=== PATIENT | male | born 1965 | race Caucasian/White ===

== ENCOUNTER → 2017-02-20 | Outpatient (REF) | payer OTHER ==
[~2017-02-20] MED LIST: BUSP10TA PO; DULC10SU2 PO; HYDR-3713 PO; PRIL40CA PO; SIME180C PO; XANA0.25 PO
[2017-02-20 14:09] LABS: ALBUMIN 3.6 GM/DL (3.2-5.2); ALKALINE PHOSPHATASE 110 U/L (45-117); ALT/SGPT 37 U/L (12-78); ANION GAP 8 MEQ/L (8-16); AST/SGOT 15 U/L (15-37); BILIRUBIN,TOTAL 0.4 MG/DL (0.2-1.0); BLOOD UREA NITROGEN 20 MG/DL (7-18); CALCIUM LEVEL 8.6 MG/DL (8.5-10.1); CARBON DIOXIDE LEVEL 28 MEQ/L (21-32); CHLORIDE LEVEL 107 MEQ/L (98-107); CHOLESTEROL LEVEL 135 MG/DL (<200); CREATININE FOR GFR 0.77 MG/DL (0.70-1.30); FREE T4 1.14 NG/DL (0.76-1.46); GLOMERULAR FILTRATION RATE > 60.0 (>56); GLUCOSE, FASTING 96 MG/DL (70-105); POTASSIUM SERUM 4.3 MEQ/L (3.5-5.1); SODIUM LEVEL 143 MEQ/L (136-145); TOTAL PROTEIN 6.6 GM/DL (6.4-8.2); TRIGLYCERIDES LEVEL 70 MG/DL (<150)
[2017-02-20 14:18] LABS: MEAN CORPUSCULAR HEMOGLOBIN 30.1 pg (27.0-33.0); MEAN CORPUSCULAR HGB CONC 33.2 g/dl (32.0-36.5); MEAN CORPUSCULAR VOLUME 90.7 fl (80.0-96.0); RED CELL DISTRIBUTION WIDTH 12.7 % (11.5-14.5); WHITE BLOOD COUNT 6.8 K/mm3 (4.0-10.0)
== END ==
LOC: M SFHCADAM 07:50
PROVIDERS: ATTEND Physician Assistant
DX: G47.33 Obstructive sleep apnea (adult) (pediatric) (principal); Z13.1 Encounter for screening for diabetes mellitus; Z13.220 Encounter for screening for lipoid disorders; E66.01 Morbid (severe) obesity due to excess calories

== ENCOUNTER → 2017-02-20 | Outpatient (REF) | payer OTHER ==
[2017-03-04 06:41] LABS: SUMMARY SEE SEPARATE REPORT
== END ==
LOC: M LAB REF 12:43
PROVIDERS: ATTEND Physical Medicine & Rehabilitation
DX: M16.12 Unilateral primary osteoarthritis, left hip (principal)

== ENCOUNTER → 2017-07-11 | Outpatient (REF) | payer OTHER ==
[2017-07-11 19:47] LABS: C REACTIVE PROTEIN QUANTITATIV 0.84 MG/DL (0.00-0.30)
[2017-07-11 20:34] LABS: ERYTHROCYTE SEDIMENTATION RATE 6 mm/hr (0-20)
== END ==
LOC: M LABDRWAD 19:22
DX: M51.37 Other intervertebral disc degeneration, lumbosacral region (principal)

== ENCOUNTER → 2017-07-11 | Outpatient (REF) | payer OTHER ==
[2017-07-11 19:55] LABS: FERRITIN 182 NG/ML (26-388); IRON (FE) 81 UG/DL (65-175); PERCENT SATURATION 23.4 % (19.7-50.0); TOTAL IRON BINDING CAPACITY 346 UG/DL (250-450)
[2017-07-14 09:41] LABS: FOLATE 10.5 NG/ML; VITAMIN B12 LEVEL 324 PG/ML
== END ==
LOC: M SFHCADAM 12:13
DX: D64.9 Anemia, unspecified (principal)

== ENCOUNTER → 2017-07-29 | Outpatient (CLI) | payer OTHER | LOC: M RAD 06:18 | DX: S46.211A Strain of muscle, fascia and tendon of other parts of biceps, right arm, initial encounter (principal); Z53.9 Procedure and treatment not carried out, unspecified reason; X58.XXXA Exposure to other specified factors, initial encounter; Y92.89 Other specified places as the place of occurrence of the external cause; Y93.89 Activity, other specified; Y99.8 Other external cause status ==

== ENCOUNTER 2017-08-07 13:22 | Day surgery (SDC) | payer OTHER ==
[2017-08-07] MEDS: LR 1,000 ML IV (14:32)
[2017-08-07] MEDS ORDERED: ROCURONIUM BROMIDE 50 MG/5 ML VIAL As Ordered (15:01)
[2017-08-07] MEDS ORDERED: LIDOCAINE 2% INJ 100 MG/5 ML SDV (FOR ANES.) As Ordered (15:01)
[2017-08-07] MEDS ORDERED: PROPOFOL 200 MG/20 ML VIAL As Ordered (15:01)
[2017-08-07] MEDS ORDERED: MIDAZOLAM INJ 2 MG/2 ML VIAL (J2250) As Ordered (15:02)
[2017-08-07] MEDS ORDERED: fentaNYL 250 MCG/5 ML INJECTION (J3010) As Ordered ×2 (15:02→16:54)
[2017-08-07] MEDS ORDERED: ONDANSETRON 4MG/2ML VIAL (J2405) As Ordered (16:17)
[2017-08-07] MEDS ORDERED: METOCLOPRAMIDE INJ 10MG/2ML VIAL (J2765) As Ordered (16:17)
[2017-08-07] MEDS ORDERED: KETOROLAC 60 MG/2 ML VIAL (J1885) As Ordered (16:18)
[2017-08-07] MEDS ORDERED: dexameTHASONE 4 MG/ML 1ML VIAL (J1100) As Ordered (16:18)
[2017-08-07] MEDS ORDERED: GLYCOPYRROLATE INJ 0.2 MG/ML 2 ML VIAL As Ordered (16:19)
[2017-08-07] MEDS ORDERED: NEOSTIGMINE 10 MG/10 ML VIAL (J2710) As Ordered (16:19)
[2017-08-07] MEDS: NORCO, ANEXSIA 5/325MG TABLET (HYDROcodone/ACETAMINOPHEN) PO ×2 (18:56→20:05)
[2017-08-07] MEDS ORDERED: LR 1,000 ML IV ×2 (19:00→19:15)
[2017-08-07] MEDS ORDERED: fentaNYL 100 MCG/2 ML INJECTION (J3010) IV (19:00)
[2017-08-07] MEDS: ONDANSETRON 4MG/2ML VIAL (J2405) IV (20:17)
== END 2017-08-07 21:05 | disposition home or self-care (01) ==
LOC: M SDC 13:22
DX: S46.211A Strain of muscle, fascia and tendon of other parts of biceps, right arm, initial encounter (principal); S46.212A Strain of muscle, fascia and tendon of other parts of biceps, left arm, initial encounter; X50.0XXA Overexertion from strenuous movement or load, initial encounter; Y93.89 Activity, other specified; Y92.89 Other specified places as the place of occurrence of the external cause; Y99.8 Other external cause status; F41.9 Anxiety disorder, unspecified; K21.9 Gastro-esophageal reflux disease without esophagitis; M51.36 Other intervertebral disc degeneration, lumbar region; G47.33 Obstructive sleep apnea (adult) (pediatric); I10 Essential (primary) hypertension; D64.9 Anemia, unspecified; M12.9 Arthropathy, unspecified; R06.83 Snoring; E66.01 Morbid (severe) obesity due to excess calories; Z68.43 Body mass index [BMI] 50.0-59.9, adult; Z79.899 Other long term (current) drug therapy; Z87.891 Personal history of nicotine dependence
CPT/HCPCS: 24341

== ENCOUNTER → 2017-10-08 | Outpatient (REF) | payer OTHER ==
[2017-10-08 19:04] LABS: BF MONONUCLEAR CELL % 89.5 % (0-0); BF POLYMORPHONUCLEAR CELL % 10.5 % (0-0); RBC BODY FLUID 3 10^3/uL (<2); WBC BODY FLUID 355 /uL (0-10)
[2017-10-08 19:07] LABS: APPEARANCE, BODY FLUID CLEAR (CLEAR); BF DIFF IF INDICATED? YES (NO); SOURCE, BODY FLUID LFT KNEE; SYNOVIAL FLUID COLOR PALE YELLOW (YELLOW)
== END ==
LOC: M LAB REF 17:29
DX: S46.212D Strain of muscle, fascia and tendon of other parts of biceps, left arm, subsequent encounter (principal); X58.XXXD Exposure to other specified factors, subsequent encounter; Y92.9 Unspecified place or not applicable; Y93.9 Activity, unspecified; Y99.9 Unspecified external cause status

== ENCOUNTER → 2017-12-02 | Outpatient (REF) | LOC: M SMT 10:23 | DX: Z02.71 Encounter for disability determination (principal) ==

== ENCOUNTER → 2018-01-27 | Outpatient (REF) | payer OTHER, MEDICAID ==
[2018-01-27 19:47] LABS: HEMATOCRIT 43.6 % (42.0-52.0); HEMOGLOBIN 14.2 g/dl (13.5-17.5); MEAN CORPUSCULAR HEMOGLOBIN 29.9 pg (27.0-33.0); MEAN CORPUSCULAR HGB CONC 32.6 g/dl (32.0-36.5); MEAN CORPUSCULAR VOLUME 91.8 fl (80.0-96.0); PLATELET COUNT, AUTOMATED 259 10^3/uL (150-450); RED BLOOD COUNT 4.75 10^6/uL (4.30-6.10); RED CELL DISTRIBUTION WIDTH 13.2 % (11.5-14.5); WHITE BLOOD COUNT 9.7 10^3/uL (4.0-10.0)
[2018-01-27 20:07] LABS: ALBUMIN 3.5 GM/DL (3.2-5.2); ALBUMIN/GLOBULIN RATIO 1.03 (1.00-1.93); ALKALINE PHOSPHATASE 110 U/L (45-117); ALT/SGPT 36 U/L (12-78); ANION GAP 4 MEQ/L (8-16); AST/SGOT 17 U/L (7-37); BILIRUBIN,TOTAL 0.3 MG/DL (0.2-1.0); BLOOD UREA NITROGEN 16 MG/DL (7-18); CALCIUM LEVEL 8.7 MG/DL (8.5-10.1); CARBON DIOXIDE LEVEL 32 MEQ/L (21-32); CHLORIDE LEVEL 105 MEQ/L (98-107); CREATININE FOR GFR 0.91 MG/DL (0.70-1.30); GLOMERULAR FILTRATION RATE > 60.0 (>56); GLUCOSE, FASTING 87 MG/DL (70-100); POTASSIUM SERUM 4.3 MEQ/L (3.5-5.1); SODIUM LEVEL 141 MEQ/L (136-145); TOTAL PROTEIN 6.9 GM/DL (6.4-8.2)
== END ==
LOC: M SFHCADAM 11:42
DX: Z01.818 Encounter for other preprocedural examination (principal)
CPT/HCPCS: 80053

== ENCOUNTER 2018-01-29 05:49 | Day surgery (SDC) | payer OTHER, MEDICAID ==
[2018-01-29] MEDS ORDERED: ROPIvacaine 0.5% 30 ML INJECTION (J2795 PER 1MG) (05:50)
[2018-01-29] MEDS ORDERED: LIDOCAINE 1% MDV 20ML VIAL (05:50)
[2018-01-29] MEDS ORDERED: dexameTHASONE 10 MG/1 ML VIAL PRES.FREE (J1100) (05:50)
[2018-01-29] MEDS: LR 1,000 ML IV ×2 (06:45→12:08)
[2018-01-29] MEDS ORDERED: MIDAZOLAM INJ 2 MG/2 ML VIAL (J2250) As Ordered ×2 (07:19→12:49)
[2018-01-29] MEDS ORDERED: PROPOFOL 200 MG/20 ML VIAL As Ordered (07:19)
[2018-01-29] MEDS ORDERED: LIDOCAINE 2% INJ 100 MG/5 ML SDV (FOR ANES.) As Ordered (07:19)
[2018-01-29] MEDS ORDERED: ROCURONIUM BROMIDE 50 MG/5 ML VIAL As Ordered ×2 (07:19→08:52)
[2018-01-29] MEDS ORDERED: fentaNYL 100 MCG/2 ML INJECTION (J3010) As Ordered ×3 (07:20→12:49)
[2018-01-29] MEDS: ceFAZolin 1GM INJ (J0690 PER 500MG) As Ordered (08:00)
[2018-01-29] MEDS: LIDOCAINE W/EPINEPHRINE 1% 20ML VIAL As Ordered (08:10)
[2018-01-29] MEDS ORDERED: dexameTHASONE 4 MG/ML 1ML VIAL (J1100) As Ordered ×2 (08:19)
[2018-01-29] MEDS ORDERED: METOCLOPRAMIDE INJ 10MG/2ML VIAL (J2765) As Ordered (08:19)
[2018-01-29] MEDS ORDERED: ONDANSETRON 4MG/2ML VIAL (J2405) As Ordered (08:19)
[2018-01-29] MEDS ORDERED: KETOROLAC 60 MG/2 ML VIAL (J1885) As Ordered (08:19)
[2018-01-29] MEDS ORDERED: SUGAMMADEX SODIUM 500 MG/5 ML VIAL (BRIDION) As Ordered (11:33)
[2018-01-29] MEDS ORDERED: PERCOCET 5MG/325MG TAB As Ordered (12:19)
[2018-01-29] MEDS: fentaNYL 100 MCG/2 ML INJECTION (J3010) IV ×5 (12:22→12:50)
[2018-01-29] MEDS: PERCOCET 5MG/325MG TAB PO (12:22)
[2018-01-29] MEDS ORDERED: ONDANSETRON 4MG/2ML VIAL (J2405) IV (12:30)
[2018-01-29] MEDS ORDERED: MEPERIDINE INJ 25 MG/ML VIAL (J2175) IV (12:30)
[2018-01-29] MEDS ORDERED: METOCLOPRAMIDE INJ 10MG/2ML VIAL (J2765) IV (12:30)
[2018-01-29] MEDS ORDERED: LR 1,000 ML IV (13:30)
[2018-01-29] MEDS ORDERED: MIDAZOLAM INJ 2 MG/2 ML VIAL (J2250) IV (13:30)
== END 2018-01-29 14:35 | disposition home or self-care (01) ==
LOC: M SDC 05:49
DX: M66.821 Spontaneous rupture of other tendons, right upper arm (principal); M79.2 Neuralgia and neuritis, unspecified; K21.9 Gastro-esophageal reflux disease without esophagitis; I10 Essential (primary) hypertension; F41.9 Anxiety disorder, unspecified; E66.01 Morbid (severe) obesity due to excess calories; G47.33 Obstructive sleep apnea (adult) (pediatric); Z87.891 Personal history of nicotine dependence; Z79.899 Other long term (current) drug therapy
CPT/HCPCS: 24342

== ENCOUNTER 2018-01-29 17:55 | Observation (INO) | payer OTHER, MEDICAID ==
[2018-01-29 18:24] LABS: BASO % 0.2 % (0.0-1.0); HEMATOCRIT 45.8 % (42.0-52.0); HEMOGLOBIN 15.4 g/dl (13.5-17.5); IMMATURE GRANULOCYTE % 0.5 % (0-3.0); LYMPH # 0.6 10^3/uL (1.5-4.5); LYMPH % 4.4 % (24.0-44.0); MEAN CORPUSCULAR HEMOGLOBIN 30.4 pg (27.0-33.0); MEAN CORPUSCULAR HGB CONC 33.6 g/dl (32.0-36.5); MEAN CORPUSCULAR VOLUME 90.3 fl (80.0-96.0); MONO # 0.1 10^3/uL (0.0-0.8); MONO % 0.6 % (0.0-5.0); NEUTROPHILS # 12.5 10^3/uL (1.8-7.7); NEUTROPHILS % 94.3 % (36.0-66.0); PLATELET COUNT, AUTOMATED 248 10^3/uL (150-450); RED BLOOD COUNT 5.07 10^6/uL (4.30-6.10); RED CELL DISTRIBUTION WIDTH 12.9 % (11.5-14.5); WHITE BLOOD COUNT 13.3 10^3/uL (4.0-10.0)
[2018-01-29] MEDS: HYDROMORPHONE HCL 0.5 MG/ 0.5 ML SYRINGE (J1170 PER 1) IV ×4 (18:30→20:45)
[2018-01-29 18:34] LABS: INR 0.92; PROTHROMBIN TIME 12.5 SECONDS (12.1-14.4)
[2018-01-29 18:51] LABS: ALBUMIN 3.6 GM/DL (3.2-5.2); ALBUMIN/GLOBULIN RATIO 0.92 (1.00-1.93); ALKALINE PHOSPHATASE 102 U/L (45-117); ALT/SGPT 39 U/L (12-78); ANION GAP 8 MEQ/L (8-16); AST/SGOT 20 U/L (7-37); BILIRUBIN,DIRECT 0.2 MG/DL (0.0-0.2); BILIRUBIN,TOTAL 0.4 MG/DL (0.2-1.0); BLOOD UREA NITROGEN 16 MG/DL (7-18); CALCIUM LEVEL 8.7 MG/DL (8.5-10.1); CARBON DIOXIDE LEVEL 25 MEQ/L (21-32); CHLORIDE LEVEL 105 MEQ/L (98-107); CPK CREATINE PHOSPHOKINASE 296 U/L (39-308); CREATININE FOR GFR 1.04 MG/DL (0.70-1.30); GLOMERULAR FILTRATION RATE > 60.0 (>56); GLUCOSE, FASTING 189 MG/DL (70-100); POTASSIUM SERUM 4.2 MEQ/L (3.5-5.1); SODIUM LEVEL 138 MEQ/L (136-145); TOTAL PROTEIN 7.5 GM/DL (6.4-8.2); TROPONIN I < 0.02 NG/ML (< 0.10)
[2018-01-29 18:52] LABS: CK-MB VALUE MASS 3.5 NG/ML (<3.6); MB/CK RELATIVE INDEX 1.18 (< OR =4); NT-PRO BNP 132 PG/ML (<125)
[2018-01-29] MEDS ORDERED: ISOVUE-370 76% 100ML VIAL (Q9967) As Ordered ×2 (18:56)
[2018-01-29] MEDS: busPIRone 5 MG TAB PO ×2 (21:00)
[2018-01-29] MEDS: OMEPRAZOLE 20 MG CAP PO ×2 (21:00)
[2018-01-29] MEDS: ALBUTEROL SULFATE 2.5 MG/0.5 ML INH NEB SOLN INH ×2 (22:04)
[2018-01-29 22:05] LABS: ABG HCO3 23.9 MEQ/L (22.0-26.0); ABG PARTIAL PRESSURE CO2 40.9 mmHg (35.0-45.0); ABG PARTIAL PRESSURE O2 76.3 mmHg (75.0-100.0); ABG STANDARD HCO3 23.6 MEQ/L (22.0-26.0); ABG TOTAL CO2 25.2 MEQ/L (22.0-29.0); ABG pH (ARTERIAL) 7.385 UNITS (7.350-7.450)
[2018-01-29] MEDS: KETOROLAC 30 MG/ML VIAL (J1885) IV ×2 (23:31)
[2018-01-29] MEDS ORDERED: ONDANSETRON 4 MG TAB (S0181) PO ×2 (23:45)
[2018-01-29] MEDS ORDERED: ACETAMINOPHEN TAB 650MG DOSE (2X325MG) PO ×2 (23:45)
[2018-01-30] MEDS: ALBUTEROL SULFATE 2.5 MG/0.5 ML INH NEB SOLN INH ×4 (01:53→01:54)
[2018-01-30] MEDS: IPRATROPIUM 0.5MG/ALBUTEROL 2.5MG INH SOL UD 3ML (DUONEB)(J7620) NEB ×8 (01:53→19:37)
[2018-01-30] MEDS: ACETAMINOPH W/CODEINE #3 TAB UD PO ×4 (02:58→08:04)
[2018-01-30] MEDS: LevoFLOXacin 500 MG TABLET PO ×2 (06:12)
[2018-01-30 06:26] LABS: ABG BASE EXCESS 0.5 (-2.0-2.0); ABG HCO3 25.4 MEQ/L (22.0-26.0); ABG O2 SATURATION 94.2 % (95.0-99.0); ABG PARTIAL PRESSURE O2 69.2 mmHg (75.0-100.0); ABG STANDARD HCO3 24.9 MEQ/L (22.0-26.0); ABG TOTAL CO2 26.7 MEQ/L (22.0-29.0)
[2018-01-30 07:10] LABS: BASO % 0.1 % (0.0-1.0); HEMATOCRIT 41.3 % (42.0-52.0); HEMOGLOBIN 13.9 g/dl (13.5-17.5); IMMATURE GRANULOCYTE % 0.5 % (0-3.0); LYMPH # 0.9 10^3/uL (1.5-4.5); MEAN CORPUSCULAR HEMOGLOBIN 30.5 pg (27.0-33.0); MEAN CORPUSCULAR HGB CONC 33.7 g/dl (32.0-36.5); MEAN CORPUSCULAR VOLUME 90.6 fl (80.0-96.0); MONO # 0.8 10^3/uL (0.0-0.8); MONO % 5.6 % (0.0-5.0); NEUTROPHILS # 13.1 10^3/uL (1.8-7.7); NEUTROPHILS % 87.8 % (36.0-66.0); PLATELET COUNT, AUTOMATED 240 10^3/uL (150-450); RED BLOOD COUNT 4.56 10^6/uL (4.30-6.10); RED CELL DISTRIBUTION WIDTH 12.9 % (11.5-14.5); WHITE BLOOD COUNT 14.9 10^3/uL (4.0-10.0)
[2018-01-30 07:31] LABS: ALBUMIN 3.2 GM/DL (3.2-5.2); ALBUMIN/GLOBULIN RATIO 0.86 (1.00-1.93); ALKALINE PHOSPHATASE 85 U/L (45-117); ALT/SGPT 32 U/L (12-78); ANION GAP 7 MEQ/L (8-16); AST/SGOT 15 U/L (7-37); BILIRUBIN,TOTAL 0.2 MG/DL (0.2-1.0); BLOOD UREA NITROGEN 17 MG/DL (7-18); CALCIUM LEVEL 8.6 MG/DL (8.5-10.1); CARBON DIOXIDE LEVEL 27 MEQ/L (21-32); CHLORIDE LEVEL 107 MEQ/L (98-107); CK-MB VALUE MASS 2.1 NG/ML (<3.6); CPK CREATINE PHOSPHOKINASE 187 U/L (39-308); CREATININE FOR GFR 0.84 MG/DL (0.70-1.30); GLOMERULAR FILTRATION RATE > 60.0 (>56); GLUCOSE, FASTING 124 MG/DL (70-100); MAGNESIUM LEVEL 2.3 MG/DL (1.8-2.4); MB/CK RELATIVE INDEX 1.12 (< OR =4); PHOSPHORUS LEVEL 3.3 MG/DL (2.5-4.9); POTASSIUM SERUM 4.1 MEQ/L (3.5-5.1); SODIUM LEVEL 141 MEQ/L (136-145); TOTAL PROTEIN 6.9 GM/DL (6.4-8.2); TROPONIN I < 0.02 NG/ML (< 0.10)
[2018-01-30] MEDS: OMEPRAZOLE 20 MG CAP PO ×4 (08:04→20:12)
[2018-01-30] MEDS: busPIRone 5 MG TAB PO ×4 (08:04→20:12)
[2018-01-30] MEDS: DOCUSATE SODIUM 100 MG CAP PO ×4 (08:04→20:12)
[2018-01-30] MEDS: ENOXAPARIN 30 MG/0.3 ML SYR (J1650) SC ×2 (08:05)
[2018-01-30] MEDS: oxyCODONE 5MG TAB PO ×6 (10:44→20:13)
[2018-01-30] MEDS ORDERED: PILL CRUSHER/CUTTER 1 EACH XX ×2 (15:15)
[2018-01-31] MEDS: IPRATROPIUM 0.5MG/ALBUTEROL 2.5MG INH SOL UD 3ML (DUONEB)(J7620) NEB ×10 (01:12→20:00)
[2018-01-31] MEDS: oxyCODONE 5MG TAB PO ×8 (02:10→17:55)
[2018-01-31] MEDS: LevoFLOXacin 500 MG TABLET PO ×2 (06:12)
[2018-01-31 06:19] LABS: BASO # 0.1 10^3/uL (0.0-0.2); BASO % 0.7 % (0.0-1.0); EOS # 0.1 10^3/uL (0.0-0.50); EOS % 0.8 % (0.0-3.0); HEMATOCRIT 41.2 % (42.0-52.0); HEMOGLOBIN 13.6 g/dl (13.5-17.5); IMMATURE GRANULOCYTE % 0.7 % (0-3.0); LYMPH # 2.3 10^3/uL (1.5-4.5); LYMPH % 21.3 % (24.0-44.0); MEAN CORPUSCULAR HEMOGLOBIN 30.8 pg (27.0-33.0); MEAN CORPUSCULAR VOLUME 93.2 fl (80.0-96.0); MONO # 0.9 10^3/uL (0.0-0.8); MONO % 8.6 % (0.0-5.0); NEUTROPHILS # 7.2 10^3/uL (1.8-7.7); NEUTROPHILS % 67.9 % (36.0-66.0); PLATELET COUNT, AUTOMATED 224 10^3/uL (150-450); RED BLOOD COUNT 4.42 10^6/uL (4.30-6.10); RED CELL DISTRIBUTION WIDTH 13.2 % (11.5-14.5); WHITE BLOOD COUNT 10.7 10^3/uL (4.0-10.0)
[2018-01-31 06:39] LABS: ALBUMIN/GLOBULIN RATIO 0.81 (1.00-1.93); ALKALINE PHOSPHATASE 79 U/L (45-117); ALT/SGPT 27 U/L (12-78); ANION GAP 5 MEQ/L (8-16); AST/SGOT 11 U/L (7-37); BILIRUBIN,TOTAL 0.3 MG/DL (0.2-1.0); BLOOD UREA NITROGEN 18 MG/DL (7-18); CALCIUM LEVEL 8.8 MG/DL (8.5-10.1); CARBON DIOXIDE LEVEL 31 MEQ/L (21-32); CHLORIDE LEVEL 109 MEQ/L (98-107); CREATININE FOR GFR 0.94 MG/DL (0.70-1.30); GLOMERULAR FILTRATION RATE > 60.0 (>56); GLUCOSE, FASTING 91 MG/DL (70-100); SODIUM LEVEL 145 MEQ/L (136-145); TOTAL PROTEIN 6.7 GM/DL (6.4-8.2)
[2018-01-31] MEDS: busPIRone 5 MG TAB PO ×4 (08:20→20:23)
[2018-01-31] MEDS: ENOXAPARIN 30 MG/0.3 ML SYR (J1650) SC ×2 (08:20)
[2018-01-31] MEDS: OMEPRAZOLE 20 MG CAP PO ×4 (08:21→20:22)
[2018-01-31] MEDS: DOCUSATE SODIUM 100 MG CAP PO ×4 (08:21→20:23)
[2018-01-31] MEDS: MOM 30ML SUSPENSION UDC PO ×2 (14:57)
[2018-01-31] MEDS: CYCLOBENZAPRINE 10 MG TAB PO ×2 (14:57)
[2018-01-31] MEDS: KETOROLAC 60 MG/2 ML VIAL (J1885) IM ×2 (17:50)
[2018-02-01] MEDS: IPRATROPIUM 0.5MG/ALBUTEROL 2.5MG INH SOL UD 3ML (DUONEB)(J7620) NEB ×6 (01:21→13:13)
[2018-02-01] MEDS: oxyCODONE 5MG TAB PO ×6 (02:05→13:13)
[2018-02-01] MEDS: LevoFLOXacin 500 MG TABLET PO ×2 (05:27)
[2018-02-01] MEDS: CYCLOBENZAPRINE 10 MG TAB PO ×2 (05:31)
[2018-02-01 06:01] LABS: BASO # 0.1 10^3/uL (0.0-0.2); BASO % 0.9 % (0.0-1.0); EOS # 0.2 10^3/uL (0.0-0.50); EOS % 2.4 % (0.0-3.0); HEMATOCRIT 39.6 % (42.0-52.0); HEMOGLOBIN 13.2 g/dl (13.5-17.5); IMMATURE GRANULOCYTE % 0.9 % (0-3.0); LYMPH # 2.5 10^3/uL (1.5-4.5); LYMPH % 31.2 % (24.0-44.0); MEAN CORPUSCULAR HEMOGLOBIN 30.3 pg (27.0-33.0); MEAN CORPUSCULAR HGB CONC 33.3 g/dl (32.0-36.5); MEAN CORPUSCULAR VOLUME 90.8 fl (80.0-96.0); MONO # 0.7 10^3/uL (0.0-0.8); MONO % 9.2 % (0.0-5.0); NEUTROPHILS # 4.4 10^3/uL (1.8-7.7); NEUTROPHILS % 55.4 % (36.0-66.0); PLATELET COUNT, AUTOMATED 224 10^3/uL (150-450); RED BLOOD COUNT 4.36 10^6/uL (4.30-6.10); RED CELL DISTRIBUTION WIDTH 13.2 % (11.5-14.5); WHITE BLOOD COUNT 7.9 10^3/uL (4.0-10.0)
[2018-02-01 06:21] LABS: ALBUMIN 2.8 GM/DL (3.2-5.2); ALBUMIN/GLOBULIN RATIO 0.74 (1.00-1.93); ALKALINE PHOSPHATASE 77 U/L (45-117); ALT/SGPT 28 U/L (12-78); ANION GAP 7 MEQ/L (8-16); AST/SGOT 13 U/L (7-37); BILIRUBIN,TOTAL 0.4 MG/DL (0.2-1.0); BLOOD UREA NITROGEN 21 MG/DL (7-18); CALCIUM LEVEL 8.6 MG/DL (8.5-10.1); CARBON DIOXIDE LEVEL 29 MEQ/L (21-32); CHLORIDE LEVEL 108 MEQ/L (98-107); CREATININE FOR GFR 0.91 MG/DL (0.70-1.30); GLOMERULAR FILTRATION RATE > 60.0 (>56); GLUCOSE, FASTING 90 MG/DL (70-100); POTASSIUM SERUM 4.1 MEQ/L (3.5-5.1); SODIUM LEVEL 144 MEQ/L (136-145); TOTAL PROTEIN 6.6 GM/DL (6.4-8.2)
[2018-02-01] MEDS: DOCUSATE SODIUM 100 MG CAP PO ×2 (08:48)
[2018-02-01] MEDS: OMEPRAZOLE 20 MG CAP PO ×2 (08:48)
[2018-02-01] MEDS: busPIRone 5 MG TAB PO ×2 (08:48)
[2018-02-01] MEDS: ENOXAPARIN 30 MG/0.3 ML SYR (J1650) SC ×2 (08:49)
== END 2018-02-01 13:53 | disposition home or self-care (01) ==
LOC: M ED INP 01-30 00:26 → M ED 17:55 → M ED INP 17:59 → M MSPAV 01-30 14:53
DX: J98.11 Atelectasis (principal); R07.1 Chest pain on breathing; G47.33 Obstructive sleep apnea (adult) (pediatric); F41.9 Anxiety disorder, unspecified; E66.01 Morbid (severe) obesity due to excess calories; Z79.899 Other long term (current) drug therapy; K21.9 Gastro-esophageal reflux disease without esophagitis; Z87.891 Personal history of nicotine dependence; Z47.89 Encounter for other orthopedic aftercare
CPT/HCPCS: Q9967

== ENCOUNTER 2018-03-04 15:51 | Emergency (ER) | payer OTHER, MEDICAID ==
[2018-03-04] MEDS ORDERED: ANEXSIA, NORCO 7.5MG/325MG TABLET(HYDROCODONE/APAP) PO (18:15)
== END 2018-03-04 18:06 | disposition home or self-care (01) ==
LOC: M ED 15:51
DX: S70.01XA Contusion of right hip, initial encounter (principal); S39.012A Strain of muscle, fascia and tendon of lower back, initial encounter; W01.0XXA Fall on same level from slipping, tripping and stumbling without subsequent striking against object, initial encounter; Y92.512 Supermarket, store or market as the place of occurrence of the external cause; M54.9 Dorsalgia, unspecified; G47.33 Obstructive sleep apnea (adult) (pediatric); K21.9 Gastro-esophageal reflux disease without esophagitis; Z87.891 Personal history of nicotine dependence; Z98.890 Other specified postprocedural states; Z79.899 Other long term (current) drug therapy
CPT/HCPCS: 73502

== ENCOUNTER → 2018-03-11 | Outpatient (REF) | payer OTHER, MEDICAID ==
[2018-03-11 11:58] LABS: C REACTIVE PROTEIN QUANTITATIV 1.38 MG/DL (0.00-0.30)
== END ==
LOC: M LABDRAW1 10:52
DX: S83.412D Sprain of medial collateral ligament of left knee, subsequent encounter (principal); W18.30XD Fall on same level, unspecified, subsequent encounter; Y92.009 Unspecified place in unspecified non-institutional (private) residence as the place of occurrence of the external cause

== ENCOUNTER 2018-09-03 04:52 | Emergency (ER) | payer MEDICAID, OTHER ==
[~2018-09-03] VITALS: Ht 175.3 cm; Wt 150.0 kg
[~2018-09-03 04:52] MED LIST changes: +ACET-716 PO; +BUSP15TA47 PO; +DULO1CAP2; +GABA-1171; +HYDR-3716; +LEVA1TAB2 PO; +ROBA500T PO
[2018-09-03] MEDS ORDERED: ONDANSETRON 4MG/2ML VIAL (J2405) IV ONE (05:15)
[2018-09-03 05:43] LABS: BASO % 0.3 % (0.0-1.0); EOS # 0.1 10^3/uL (0.0-0.50); EOS % 0.7 % (0.0-3.0); HEMATOCRIT 45.2 % (42.0-52.0); HEMOGLOBIN 15.4 g/dl (13.5-17.5); LYMPH # 1.1 10^3/uL (1.5-4.5); LYMPH % 12.1 % (24.0-44.0); MEAN CORPUSCULAR HEMOGLOBIN 30.1 pg (27.0-33.0); MEAN CORPUSCULAR HGB CONC 34.1 g/dl (32.0-36.5); MEAN CORPUSCULAR VOLUME 88.5 fl (80.0-96.0); MONO # 0.8 10^3/uL (0.0-0.8); MONO % 8.9 % (0.0-5.0); NEUTROPHILS # 6.8 10^3/uL (1.8-7.7); NEUTROPHILS % 77.4 % (36.0-66.0); PLATELET COUNT, AUTOMATED 268 10^3/uL (150-450); RED BLOOD COUNT 5.11 10^6/uL (4.30-6.10); WHITE BLOOD COUNT 8.8 10^3/uL (4.0-10.0)
[2018-09-03 06:15] LABS: ALBUMIN 3.6 GM/DL (3.2-5.2); ALT/SGPT 42 U/L (12-78); BILIRUBIN,DIRECT 0.1 MG/DL (0.0-0.2); BILIRUBIN,TOTAL 0.7 MG/DL (0.2-1.0); BLOOD UREA NITROGEN 14 MG/DL (7-18); CALCIUM LEVEL 8.7 MG/DL (8.5-10.1); CARBON DIOXIDE LEVEL 24 MEQ/L (21-32); CHLORIDE LEVEL 101 MEQ/L (98-107); CPK CREATINE PHOSPHOKINASE 94 U/L (39-308); CREATININE FOR GFR 0.82 MG/DL (0.70-1.30); GLOMERULAR FILTRATION RATE > 60.0 (>56); GLUCOSE, FASTING 117 MG/DL (70-100); LIPASE 60 U/L (73-393); SODIUM LEVEL 135 MEQ/L (136-145); TOTAL PROTEIN 7.5 GM/DL (6.4-8.2); TROPONIN I < 0.02 NG/ML (< 0.10)
[2018-09-03] MEDS ORDERED: KETOROLAC 30 MG/ML VIAL (J1885) IV ONE (06:30)
[2018-09-03] MEDS ORDERED: NS 1,000 ML IV ONE (06:30)
--- NOTE | 2018-09-03 08:22 | REP ---
Chest x-ray: Two views. History: Cough. Pain felt pop and ribs. . Comparison study: January 30, 2018 . Findings: The lungs are well inflated and free of infiltrate. The pleural angles are sharp. The heart size is normal. Pulmonary vasculature is not increased. No significant bony abnormality is seen. Impression: Negative chest x-ray. Electronically Signed by Edward Blackman MD 09/03/2018 08:14 A
--- NOTE | 2018-09-03 08:58 | REP ---
Left rib series: Four views. Comparison made with today's chest x-ray. History: Pain. [place] a pop in the left rib cage. Findings: Four views of the left rib cage demonstrate no evidence of rib fracture or bony destructive lesion. There are a few loops of air-filled small bowel demonstrating a few air-fluid levels in the upper abdomen. Impression: No rib fracture or bony destructive rib lesion seen. Electronically Signed by Edward Blackman MD 09/03/2018 11:58 A
[2018-09-03 09:17] VITALS: BP 139/92
--- NOTE | 2018-09-03 10:26 | ECGEPIP ---
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
== END 2018-09-03 09:20 | disposition home or self-care (01) ==
LOC: M ED 04:52
DX: R07.81 Pleurodynia (principal); R11.2 Nausea with vomiting, unspecified; R19.7 Diarrhea, unspecified; R94.31 Abnormal electrocardiogram [ECG] [EKG]; E66.9 Obesity, unspecified; G47.33 Obstructive sleep apnea (adult) (pediatric); F41.9 Anxiety disorder, unspecified; K21.9 Gastro-esophageal reflux disease without esophagitis; Z79.899 Other long term (current) drug therapy
CPT/HCPCS: 71046; 71100; 80048; 80076; 82550; 82553; 83690; 85025; 87507; 93005; 96374; 96375; 99284; J1885; J2405

== ENCOUNTER 2018-09-23 19:34 | Day surgery (SDC) | payer OTHER ==
[~2018-09-23] VITALS: Ht 170.2 cm; Wt 176.0 kg
[2018-09-23] MEDS ORDERED: LISI10TA4 PO (19:39)
[2018-09-23] MEDS ORDERED: GABA-845 PO (19:39)
[2018-09-23] MEDS ORDERED: ONDANSETRON 4MG/2ML VIAL (J2405) IV ONE (20:00)
[2018-09-23] MEDS ORDERED: KETOROLAC 30 MG/ML VIAL (J1885) IV ONE (20:00)
[2018-09-23] MEDS ORDERED: MORPHINE 4 MG/ML 1ML VIAL/SYRINGE (J2270) IV ONE (20:00)
[2018-09-23] MEDS ORDERED: NS 1,000 ML IV ONE ×2 (20:00→20:45)
[2018-09-23 20:10] LABS: BASO # 0.1 10^3/uL (0.0-0.2); BASO % 0.9 % (0.0-1.0); EOS # 0.3 10^3/uL (0.0-0.50); EOS % 2.1 % (0.0-3.0); HEMATOCRIT 44.7 % (42.0-52.0); LYMPH # 3.2 10^3/uL (1.5-4.5); LYMPH % 24.5 % (24.0-44.0); MEAN CORPUSCULAR HEMOGLOBIN 29.6 pg (27.0-33.0); MEAN CORPUSCULAR HGB CONC 33.6 g/dl (32.0-36.5); MEAN CORPUSCULAR VOLUME 88.2 fl (80.0-96.0); MONO % 7.8 % (0.0-5.0); NEUTROPHILS # 8.5 10^3/uL (1.8-7.7); PLATELET COUNT, AUTOMATED 310 10^3/uL (150-450); RED BLOOD COUNT 5.07 10^6/uL (4.30-6.10); WHITE BLOOD COUNT 13.3 10^3/uL (4.0-10.0)
[2018-09-23 20:29] LABS: ALBUMIN 3.9 GM/DL (3.2-5.2); ALT/SGPT 40 U/L (12-78); BILIRUBIN,DIRECT 0.1 MG/DL (0.0-0.2); BILIRUBIN,TOTAL 0.6 MG/DL (0.2-1.0); BLOOD UREA NITROGEN 16 MG/DL (7-18); CALCIUM LEVEL 9.2 MG/DL (8.5-10.1); CARBON DIOXIDE LEVEL 24 MEQ/L (21-32); CHLORIDE LEVEL 102 MEQ/L (98-107); GLOMERULAR FILTRATION RATE > 60.0 (>56); GLUCOSE, FASTING 102 MG/DL (70-100); LIPASE 153 U/L (73-393); POTASSIUM SERUM 4.1 MEQ/L (3.5-5.1); SODIUM LEVEL 135 MEQ/L (136-145); TOTAL PROTEIN 7.7 GM/DL (6.4-8.2)
--- NOTE | 2018-09-23 20:37 | REPVR ---
EXAM: CT Abdomen and Pelvis Without Contrast EXAM DATE/TIME: 09/23/2018 7:59 PM CLINICAL HISTORY: 52 years old, male; Pain; Abdominal pain; Other: Rlq; Additional info: Rlq pain rad to right flank TECHNIQUE: Imaging protocol: Axial computed tomography images of the abdomen and pelvis without contrast. Coronal and sagittal reformatted images were created and reviewed. Radiation optimization: All CT scans at this facility use at least one of these dose optimization techniques: automated exposure control; mA and/or kV adjustment per patient size (includes targeted exams where dose is matched to clinical indication); or iterative reconstruction. COMPARISON: CT ABD PELVIS WITH CONTRAST 10/09/2014 4:55 AM FINDINGS: Lower thorax: Minimal right middle lobe and lingular atelectasis or scar. ABDOMEN: Liver: Normal. No mass. Gallbladder and bile ducts: The gallbladder is contracted with no stones. Pancreas: Normal. No ductal dilation. Spleen: Splenic calcification. Adrenals: Normal. No mass. Kidneys and ureters: Normal. No hydronephrosis. Stomach and bowel: Normal. No obstruction. No mucosal thickening. Appendix: The appendix measures 12 mm and demonstrates slight surrounding induration and is increased in size since the prior study at which time it measured 6 mm. PELVIS: Bladder: Unremarkable as visualized. Reproductive: Unremarkable as visualized. ABDOMEN and PELVIS: Intraperitoneal space: Normal. No free air. No significant fluid collection. Bones/joints: No acute fracture. No dislocation. Soft tissues: Unremarkable. Vasculature: Normal. No abdominal aortic aneurysm. Lymph nodes: Normal. No enlarged lymph nodes. IMPRESSION: 1. Mild appendicitis which is new since 10/09/2014. The appendix is increased in size and there is new slight surrounding induration. 2. Otherwise negative CT abdomen/pelvis. Electronically signed by: Elton Dinh On 09/23/2018 20:34:16 PM
[2018-09-23] MEDS ORDERED: PIPERACILLIN/TAZOBACTAM SOD 4.5 GM in D5W MINI-BAG PLUS 50 ML IV ONE (20:45)
[2018-09-23] MEDS ORDERED: DULO1CAP3 PO (20:54)
[2018-09-23] MEDS ORDERED: OMEP40CA2 PO (20:54)
[2018-09-23] MEDS ORDERED: ACET300T52 PO (20:54)
[2018-09-23] MEDS ORDERED: NEUR800T PO (20:54)
[2018-09-23] MEDS ORDERED: PERCOCET 5MG/325MG TAB PO PRN (21:00)
[2018-09-23] MEDS ORDERED: ONDANSETRON 4MG/2ML VIAL (J2405) IV PRN (21:00)
[2018-09-23] MEDS ORDERED: MORPHINE 4 MG/ML 1ML VIAL/SYRINGE (J2270) IV PRN (21:00)
[2018-09-23] MEDS ORDERED: ACETAMINOPHEN TAB 650MG DOSE (2X325MG) PO PRN (21:00)
[2018-09-23] MEDS ORDERED: PERCOCET 5MG/325MG TAB As Ordered ONE (22:08)
[2018-09-23] MEDS: PERCOCET 5MG/325MG TAB PO PRN (22:10)
[2018-09-23 22:20] VITALS: BP 160/82
[2018-09-23] MEDS: DULoxetine 30 MG CAP (CYMBALTA) PO SCH (23:15)
[2018-09-23] MEDS: SENOKOT S TAB PO SCH (23:15)
[2018-09-23] MEDS: CIPROFLOXACIN 400 MG in APPROPRIATE DILUENT 1 EA IV SCH (23:15)
[2018-09-23] MEDS: PANTOPRAZOLE 40MG INJ (PROTONIX) (C9113) IV SCH (23:16)
[2018-09-23] MEDS: busPIRone 5 MG TAB PO SCH (23:16)
[2018-09-23] MEDS: GABAPENTIN 400 MG CAP PO SCH (23:16)
[2018-09-23] MEDS: LR 1,000 ML IV SCH (23:17)
[2018-09-23] MEDS: metroNIDAZOLE 500 MG in APPROPRIATE DILUENT 1 EA IV SCH (23:28)
[2018-09-24] VITALS (10 sets, daily range): BP systolic 127–153; BP diastolic 57–90; O2SAT 95
[2018-09-24] MEDS: metroNIDAZOLE 500 MG in APPROPRIATE DILUENT 1 EA IV SCH ×3 (05:39→22:11)
[2018-09-24] MEDS: LR 1,000 ML IV SCH ×2 (05:40→13:23)
--- NOTE | 2018-09-24 06:17 | HPEPDOC ---
General Surgery H&P Date of Admission Sep 23, 2018 Attending Physician: CARLO ELDER MD History and Physical CHIEF COMPLAINT: abdominal pain HISTORY OF PRESENT ILLNESS: Patient is a 52-year-old gentleman, morbidly obese with a 4 day history of ongoing sharp right-sided abdominal discomfort. Patient reports constant nagging type discomfort on his right side. He denies any sick contacts. Denies any associated nausea, vomiting, diarrhea, fevers or chills. With the persistent discomfort he went to the emergency room for evaluation and was found to have evidence for mild acute appendicitis. Patient has no prior abdominal surgery. ALLERGIES: Please see below. HOME MEDICATIONS: Please see below. PAST MEDICAL HISTORY: 1. morbid obesity BMI of 60.8 2. hypertension 3. sleep apnea 4. Gastroesophageal Reflux Disease 5. Degenerative Disc Disease with chronic low back pain 6. chronic anemia PAST SURGICAL HISTORY: 1. Repair right biceps tear 2. EGD/Colonoscopy PERSONAL/SOCIAL HISTORY:Remote Smoke, occasional alcohol use REVIEW OF SYSTEMS: GENERAL: Denies chills, fatigue, fever, weight gain and weight loss. HEENT: Denies blurred vision and double vision. Denies ear symptoms. Denies hoarseness. NECK: Denies any neck pain. CARDIOVASCULAR: Denies chest pain and palpitations. MUSCULOSKELETAL: Had torn biceps repair from lifting heavy objects. Reports low back pain SKIN: Denies rash. NEUROLOGIC: Denies headache, stroke and transient ischemic attack. PSYCHIATRIC: Denies anxiety and depression. ENDOCRINE: Denies thyroid disease. HEMATOLOGY/ONCOLOGY: Denies any bleeding or clotting disorder. HEART: Denies any chest pains, palpitations, paroxysmal dyspnea, orthopnea. PULMONARY: Denies chronic cough, dyspnea and wheezing. Has sleep apnea on CPAP GASTROINTESTINAL: Has had screening colonoscopy with tiny polyp removed GENITOURINARY: Denies dysuria, frequency, hematuria and nocturia. ENDOCRINE: Denies polydipsia, polyphagia, polyuria, heat or cold intolerance. INFECTIOUS: Denies any recent upper respiratory tract infection, UTI, need for use of antibiotics. NUTRITION: Reports fair appetite. PHYSICAL EXAMINATION: VITAL SIGNS: Please see below. GENERAL APPEARANCE: Patient seen at bedside, appears comfortable. Awake, alert, oriented. HEENT: Normocephalic, atraumatic. [place] palpebral conjunctivae. Anicteric sclerae. Lips moist. CHEST: No chest wall abnormalities. Normal respiratory motion/effort. NECK: Supple. No thyromegaly. No lymphadenopathies. LUNGS: Lung sounds are clear to auscultation bilaterally. No wheezing appreciated. HEART: No chest wall abnormalities. Heart rate and rhythm are regular with no murmurs. ABDOMEN: [Abdomen is obese, soft, markedly rounded. No umbilical or groin herniations. Moderately tender over the right lower quadrant area with mild guarding. Nontender other parts of the abdomen SKIN: Warm, moist. EXTREMITIES: Extremities have no deformities. No edema identified. NEUROLOGICAL: Awake, alert, oriented ANCILLARIES: . LABORATORY DATA: Please see below. MICROBIOLOGY: Please see below. IMAGING: CT abdomen and pelvis 1. Mild appendicitis which is new since 10/09/2014. The appendix is increased in size and there is new slight surrounding induration. 2. Otherwise negative CT abdomen/pelvis. IMPRESSION AND PLAN: Acute Appendicitis Patient had a full meal prior to presentation in the ED. Will start him on antibiotics and schedule him for laparoscopic appendectomy in am/ I discussed with the patient the details of the proposed procedure, the benefits of performing the procedure, the most common risks on doing the procedure. This may include pulmonary risks given his sleep apnea and morbid obesity. This would have to be done under general anesthesia. Likewise risks for bleeding, subsequent abscess formation, injury to nearby bowels and vascular structures. I have given him a chance to ask questions, voice out concerns. Patient has agreed to proceed Vital Signs Vital Signs Date Time Temp Pulse Resp B/P (MAP) Pulse Ox O2 Delivery O2 Flow Rate FiO2 09/24/18 03:54 70 16 91 NIPPV (BIPAP/CPAP) 09/23/18 22:20 97.0 160/82 (108) I&Os I&O- Last 24 Hours up to 6 AM 09/24/18 06:00 Intake Total 1850 ml Output Total 500 ml Balance 1350 ml Laboratory Data Labs 24H Laboratory Tests 2 09/23/18 19:59: Immature Granulocyte % (Auto) 0.7, White Blood Count 13.3H, Red Blood Count 5.07, Hemoglobin 15.0, Hematocrit 44.7, Mean Corpuscular Volume 88.2, Mean Corpu scular Hemoglobin 29.6, Mean Corpuscular Hemoglobin Concent 33.6, Red Cell Distribution Width 13.2, Platelet Count 310, Neutrophils (%) (Auto) 64.0, Lymphocytes (%) (Auto) 24.5, Monocytes (%) (Auto) 7.8H, Eosinophils (%) (Auto) 2.1, Basophils (%) (Auto) 0.9, Neutrophils # (Auto) 8.5H, Lymphocytes # (Auto) 3.2, Monocytes # (Auto) 1.0H, Eosinophils # (Auto) 0.3, Basophils # (Auto) 0.1, Nucleated Red Blood Cells % (auto) 0.0, Urine Color YELLOW, Urine Appearance CLEAR, Urine pH 5.0, Urine Specific [place] 1.019, Urine Protein NEGATIVE, Urine Glucose (UA) NEGATIVE, Urine Ketones NEGATIVE, Urine Blood NEGATIVE, Urine Nitrite NEGATIVE, Urine Bilirubin NEGATIVE, Urine Urobilinogen 0.2, Urine Leukoc yte Esterase NEGATIVE, Urine WBC (Auto) 1, Urine RBC (Auto) 1, Urine Hyaline Casts (Auto) 0, Urine Bacteria (Auto) NEGATIVE, Urine Squamous Epithelial Cells 0, Urine Mucus (Auto) SMALL, Urine Sperm (Auto) , Anion Gap 9, Glomerular Filtration Rate > 60.0, Calcium Level 9.2, Aspartate Amino Transf (AST/SGOT) 20, Alanine Aminotransferase (ALT/SGPT) 40, Alkaline Phosphatase 120H, Total Bilirubin 0.6, Direct Bilirubin 0.1, Total Protein 7.7, Albumin 3.9, Albumin/Globulin Ratio 1.03, Lipase 153 CBC/BMP Laboratory Tests 09/23/18 19:59 Red Blood Count 5.07, Mean Corpuscular Volume 88.2, Mean Corpuscular Hemoglobin 29.6, Mean Corpuscular Hemoglobin Concent 33.6, Red Cell Distribution Width 13.2, Neutrophils (%) (Auto) 64.0, Lymphocytes (%) (Auto) 24.5, Monocytes (%) (Auto) 7.8 H, Eosinophils (%) (Auto) 2.1, Basophils (%) (Auto) 0.9, Neutrophils # (Auto) 8.5 H, Lymphocytes # (Auto) 3.2, Monocytes # (Auto) 1.0 H, Eosinophils # (Auto) 0.3, Basophils # (Auto) 0.1 Microbiology Microbiology 09/23/18 Blood Culture, Received Pending 09/23/18 Blood Culture, Received Pending Home Medications Scheduled Buspirone HCl (Buspirone HCl) 15 Mg Tab, 15 MG PO BID, (Reported) Duloxetine Hcl (Duloxetine HCl) 60 Mg Capsule.dr, 60 MG PO QHS, (Reported) Gabapentin (Neurontin) 800 Mg Tablet, 800 MG PO TID, (Reported) Lisinopril (Lisinopril) 10 Mg Tablet, 10 MG PO QHS, (Reported) Omeprazole (Omeprazole) 40 Mg Capsule.dr, 40 MG PO BID, (Reported) Scheduled PRN Acetaminophen with Codeine (Acetaminophen-Cod #4 Tablet) 1 Each Tablet, 1 TAB PO Q4H PRN for PAIN, (Reported) Allergies Coded Allergies: No Known Allergies (Unverified , 09/23/18) CARLO ELDER MD Sep 24, 2018 06:17
[2018-09-24] MEDS: CIPROFLOXACIN 400 MG in APPROPRIATE DILUENT 1 EA IV SCH ×2 (09:05→20:40)
[2018-09-24] MEDS: busPIRone 5 MG TAB PO SCH ×2 (09:06→20:41)
[2018-09-24] MEDS: ENOXAPARIN 40 MG/0.4 ML SYRINGE (J1650) SC SCH (09:06)
[2018-09-24] MEDS: PANTOPRAZOLE 40MG INJ (PROTONIX) (C9113) IV SCH ×2 (09:06→20:40)
[2018-09-24] MEDS: GABAPENTIN 400 MG CAP PO SCH ×3 (09:06→20:41)
[2018-09-24] MEDS: SENOKOT S TAB PO SCH ×2 (09:06→20:41)
[2018-09-24] MEDS ORDERED: ONDANSETRON 4MG/2ML VIAL (J2405) As Ordered ONE (09:31)
[2018-09-24] MEDS ORDERED: PROPOFOL 200 MG/20 ML VIAL As Ordered ONE (09:31)
[2018-09-24] MEDS ORDERED: LIDOCAINE 2% INJ 100 MG/5 ML SDV (FOR ANES.) As Ordered ONE (09:31)
[2018-09-24] MEDS ORDERED: ROCURONIUM BROMIDE 50 MG/5 ML VIAL As Ordered ONE (09:31)
[2018-09-24] MEDS ORDERED: METOCLOPRAMIDE INJ 10MG/2ML VIAL (J2765) As Ordered ONE (09:31)
[2018-09-24] MEDS ORDERED: MIDAZOLAM INJ 2 MG/2 ML VIAL (J2250) As Ordered ONE (09:31)
[2018-09-24] MEDS ORDERED: fentaNYL 100 MCG/2 ML INJECTION (J3010) As Ordered ONE ×2 (09:31→11:53)
[2018-09-24] MEDS ORDERED: LIDOCAINE 1% SDV INJ 30 ML VIAL As Ordered ONE (09:49)
[2018-09-24] MEDS ORDERED: BUPIVACAINE HCL 0.25% 30 ML VIAL As Ordered ONE (09:49)
[2018-09-24] MEDS ORDERED: SUGAMMADEX SODIUM 500 MG/5 ML VIAL (BRIDION) As Ordered ONE (11:27)
[2018-09-24] MEDS ORDERED: PERCOCET 5MG/325MG TAB As Ordered ONE ×2 (11:53→12:30)
[2018-09-24] MEDS: PERCOCET 5MG/325MG TAB PO PRN ×4 (11:55→21:45)
[2018-09-24] MEDS ORDERED: METOCLOPRAMIDE INJ 10MG/2ML VIAL (J2765) IV PRN (12:00)
[2018-09-24] MEDS ORDERED: LR 1,000 ML IV SCH (12:00)
[2018-09-24] MEDS ORDERED: ONDANSETRON 4MG/2ML VIAL (J2405) IV PRN (12:00)
[2018-09-24] MEDS: fentaNYL 100 MCG/2 ML INJECTION (J3010) IV PRN ×2 (12:00→12:35)
[2018-09-24] MEDS ORDERED: MEPERIDINE INJ 25 MG/ML VIAL (J2175) IV PRN (12:00)
--- NOTE | 2018-09-24 12:58 | ROOPDOC ---
[facility] Report Of Operation Report of Operation DATE OF PROCEDURE: 09/24/18 PREPROCEDURE DIAGNOSES: Acute appendicitis, morbid obesity. POSTPROCEDURE DIAGNOSES: Same. PROCEDURE: Laparoscopic appendectomy. SURGEON: Carlo arriaga MD ANESTHESIA: Gen. anesthesia. ESTIMATED BLOOD LOSS: Approximately 10 mL. COMPLICATIONS: None. REMARKS: Appendix is inflamed, thickened and swollen at the distal portion. No gross perforation. He is located medially in between the terminal ileum and the mesentery of small bowel with some lateral adhesions which initially made the visualization difficult especially in light of his body habitus.. PROCEDURE NOTE: 52-year-old male, morbidly obese with a BMI of 60 presented with 4-5 day history of pain and found to have evidence of mild acute appendicitis, mild leukocytosis of 13,000. Unfortunately he ate a meal prior to presenting to the emergency room. He was started on antibiotics and is now brought at this time to the OR for appendectomy. DESCRIPTION OF PROCEDURE: Patient has been been receiving ciprofloxacin and metronidazole perioperatively.Patient was brought to the operating room, placed supine on the table. Sequential compression device placed for DVT prophylaxis. General endotracheal anesthesia started. The abdomen prepped and draped in usual sterile fashion. After a surgical timeout, we began our surgery Entry into the abdomen done through an incision at the left upper quadrant area. The subcutaneous space was dissected with hemostat. Veress needle inserted on a controlled fashion. Intra-abdominal placement confirmed with saline drop technique. CO2 insufflation started to a pressure of 15 mmHg. Using the same incision a 5 mm port was placed under direct vision of a 5mm 30 laparoscope. Insertion site was inspected for injury and none was found. He was placed on a Trendelenburg position the right side tilted to about 30 to allow for better visualization of the right lower quadrant area. I placed 2 working ports above the umbilical skin cleft and infraumbilical area towards the right paramedian area. Operative findings: On entry, there is no free fluid that I note. He has bulky omentum covering most of the bowels. Visible portions of the small bowel and right colon does not seem to be inflamed. The cecum seems to be tethered to the right side abdominal wall and also slightly to the retroperitoneum. On pulling o n the cecum I couldn't make up the base of the appendix in between the insertion of the terminal ileum and the cecum and this seems to be tethered underneath towards the pelvis or the retroperitoneum. The lateral attachments of the cecum was divided to allow for slight medial rotation. Due to his body habitus I could not reach with my instrument at the left upper quadrant area thus I placed another working port at about the suprapubic area. The midline with the camera at the umbilical port site. I then used the left upper quadrant area to retract on the right colon upwards. The small bowel was retracted out of view and slowly I worked on the appendix breaking apart some inflammatory adhesion as well as some chronic appearing adhesion of the appendix to the right pelvic sidewall and was able to flip this upwards fully visualizing the appendix. Midportion of the appendix is dilated w ith the mesentery thickened consistent with acute appendicitis. I see no evidence of perforation. There is a very tiny amount of reactive serous fluid around the area. The appendix was located, the adhered bowels and mesentery was widely dissected away from the appendix freeing up the appendix from the inflammatory adhesions using traction and the harmonic scalpel. The Surrounding bowels retracted away from the appendix. This was grasped to pull the base of the appendix into view. The mesoappendix was divided using Harmonic scalpel from the mid appendix down to the base. I initially tried to use a Vicryl Endoloop to ligate the appendix but due to the degree of angulation as well as the thickness of his abdominal wall I could not tie the endoloop securely. I then converted the umbilical port to a 12 mm port to accommodate the stapler. I used a 45 mm endoscopic linear stapler with a blue load to divide the appendix at its base. There were small portions of bleeding points along the staple line which was cauterized. I inspected the mesenteric dissection for bleeding. There is a small amount of oozing which was easily controlled with the Harmonic scalpel. I examined the Initial stump and this appears healthy. Appendix was then delivered into an Endo Catch bag. After re-insufflation the surgical site was inspected for hemostasis. Surrounding areas of the abdomen are inspected for fluid collections or signs of injury. I used a Chris-Turner device to close the fascial defect of the 12 mm port site using 0 Vicryl. The abdomen was deflated. All ports removed. All skin incisions closed with 4-0 Monocryl in a subcuticular fashion. Steri-Strips and gauze dressing used for wound coverage. Patient was promptly awake and extubated and brought to recovery room stable. All counts of sponges and instruments verified to be correct. CARLO ELDER MD Sep 24, 2018 12:57
[2018-09-24] MEDS: KETOROLAC 30 MG/ML VIAL (J1885) IV PRN (16:13)
[2018-09-24] MEDS: DULoxetine 30 MG CAP (CYMBALTA) PO SCH (20:41)
[2018-09-25 02:26] VITALS: O2SAT 92
[2018-09-25 06:00] VITALS: BP 146/78
[2018-09-25] MEDS: PERCOCET 5MG/325MG TAB PO PRN (06:02)
[2018-09-25] MEDS: metroNIDAZOLE 500 MG in APPROPRIATE DILUENT 1 EA IV SCH (06:02)
[2018-09-25 06:54] LABS: BASO # 0.1 10^3/uL (0.0-0.2); BASO % 0.7 % (0.0-1.0); EOS # 0.2 10^3/uL (0.0-0.50); EOS % 2.6 % (0.0-3.0); HEMATOCRIT 40.2 % (42.0-52.0); HEMOGLOBIN 13.3 g/dl (13.5-17.5); LYMPH # 1.3 10^3/uL (1.5-4.5); LYMPH % 17.2 % (24.0-44.0); MEAN CORPUSCULAR HEMOGLOBIN 30.1 pg (27.0-33.0); MEAN CORPUSCULAR HGB CONC 33.1 g/dl (32.0-36.5); MONO # 0.7 10^3/uL (0.0-0.8); MONO % 8.8 % (0.0-5.0); NEUTROPHILS # 5.4 10^3/uL (1.8-7.7); NEUTROPHILS % 70.2 % (36.0-66.0); PLATELET COUNT, AUTOMATED 239 10^3/uL (150-450); RED BLOOD COUNT 4.42 10^6/uL (4.30-6.10); WHITE BLOOD COUNT 7.6 10^3/uL (4.0-10.0)
[2018-09-25 07:13] LABS: BLOOD UREA NITROGEN 15 MG/DL (7-18); CALCIUM LEVEL 8.5 MG/DL (8.5-10.1); CARBON DIOXIDE LEVEL 28 MEQ/L (21-32); CHLORIDE LEVEL 105 MEQ/L (98-107); CREATININE FOR GFR 0.88 MG/DL (0.70-1.30); GLOMERULAR FILTRATION RATE > 60.0 (>56); GLUCOSE, FASTING 104 MG/DL (70-100); POTASSIUM SERUM 4.2 MEQ/L (3.5-5.1); SODIUM LEVEL 138 MEQ/L (136-145)
[2018-09-25] MEDS: GABAPENTIN 400 MG CAP PO SCH (08:31)
[2018-09-25] MEDS: KETOROLAC 30 MG/ML VIAL (J1885) IV PRN (08:31)
[2018-09-25] MEDS: SENOKOT S TAB PO SCH (08:31)
[2018-09-25] MEDS: busPIRone 5 MG TAB PO SCH (08:31)
[2018-09-25] MEDS: PANTOPRAZOLE 40MG INJ (PROTONIX) (C9113) IV SCH (08:31)
[2018-09-25] MEDS: ENOXAPARIN 40 MG/0.4 ML SYRINGE (J1650) SC SCH (08:31)
[2018-09-25] MEDS: CIPROFLOXACIN 400 MG in APPROPRIATE DILUENT 1 EA IV SCH (08:32)
[2018-09-25] MEDS ORDERED: PERCOCET PO (09:23)
--- NOTE | 2018-09-25 09:30 | IPNPDOC ---
Subjective General Date/Time Seen The patient was seen on 09/25/18 at 09:27. Subject Chief Complaint/History The patient is a 52-year-old male admitted with a reason for visit of Acute Appendicitis. Patient reports he's feeling much better. He reports some mild incisional pain and minimal leftover discomfort at the right lower quadrant area. He is tolerating regular food without nausea or vomiting. He is ambulating to the hallways. He denies any shortness of breath Current Medications Current Medications Current Medications Acetaminophen (Tylenol Tab) 650 mg Q4HP PRN PO MILD PAIN or TEMP > 101; Start 09/23/18 at 21:00 Buspirone HCl (Buspar) 15 mg BID PO Last administered on 09/25/18 08:31; Start 09/23/18 at 21:00 Ciprofloxacin 400 mg/IV Miscellaneous Supplies 200 ml @ 200 mls/hr Q12H IV Last administered on 09/25/18 08:32; Start 09/23/18 at 21:00 Duloxetine HCl (Cymbalta) 60 mg QHS PO Last administered on 09/24/18at 20:41; Start 09/23/18 at 21:00 Enoxaparin Sodium (Lovenox) 40 mg DAILY SC Last administered on 09/25/18 08:31; Start 09/24/18 at 09:00 Fentanyl Citrate (Sublimaze) 25 mcg Q5MP PRN IV MODERATE PAIN (PS 4-7) Last administered on 09/24/18at 12:00; Start 09/24/18 at 12:00; Stop 09/24/18 at 13:00; Status DC Gabapentin (Neurontin) 800 mg TID PO Last administered on 09/25/18 08:31; Start 09/23/18 at 21:00 Home Med (Med Rec Complete!) ASDIRECTED XX ; Start 09/23/18 at 21:00; Stop 09/23/18 at 21:00; Status DC Ketorolac Tromethamine (ToRADol) 30 mg Q6HP PRN IV MILD/MODERATE PAIN (PS 1-7) Last administered on 09/25/18 08:31; Start 09/23/18 at 21:00; Stop 09/28/18 at 20:59 Lactated Ringer's 1,000 ml @ 100 mls/hr Q10H IV ; Start 09/24/18 at 12:00; Stop 09/24/18 at 13:00; Status DC Lactated Ringer's 1,000 ml @ 125 mls/hr Q8H IV Last administered on 09/24/18at 13:23; Start 09/23/18 at 20:58; Stop 09/24/18 at 18:03; Status DC Meperidine HCl (Demerol) 12.5 mg Q5MP PRN IV SHIVERING; Start 09/24/18 at 12:00; Stop 09/24/18 at 13:00; Status DC Metoclopramide HCl (REGLAN INJection) 10 mg Q6HP PRN IV NAUSEA OR VOMITING; Start 09/24/18 at 12:00; Stop 09/24/18 at 13:00; Status DC Metronidazole 500 mg/IV Miscellaneous Supplies 100 ml @ 100 mls/hr Q8H IV Last administered on 09/25/18at 06:02; Start 09/23/18 at 22:00 Morphine Sulfate (Morphine Sulfate Inj) 4 mg Q2HP PRN IV SEVERE PAIN (PS 8-10); Start 09/23/18 at 21:00 Ondansetron HCl (ZOFRAN INJection) 4 mg Q4HP PRN IV NAUSEA OR VOMITING; Start 09/24/18 at 12:00; Stop 09/24/18 at 13:00; Status DC Ondansetron HCl (ZOFRAN INJection) 4 mg Q6HP PRN IV NAUSEA OR VOMITING; Start 09/23/18 at 21:00 Oxycodone/ Acetaminophen (Percocet 5mg/ 325mg Tablet) 1 tab ASDIRECTED PRN PO MILD/MODERATE PAIN (PS 1-7) Last administered on 09/24/18at 12:25; Start 09/24/18 at 12:00; Stop 09/24/18 at 12:37; Status DC Oxycodone/ Acetaminophen (Percocet 5mg/ 325mg Tablet) 1 tab Q4HP PRN PO MODERATE PAIN (PS 5-7); Start 09/23/18 at 21:00 Oxycodone/ Acetaminophen (Percocet 5mg/ 325mg Tablet) 2 tab Q6HP PRN PO SEVERE PAIN (PS 8-10) Last administered on 09/25/18at 06:02; Start 09/23/18 at 21:00 Pantoprazole Sodium (Protonix) 40 mg BID IV Last administered on 09/25/18at 08:31; Start 09/23/18 at 21:00 Senna/Docusate Sodium (Senokot S) 1 tab BID PO Last administered on 09/25/18at 08:31; Start 09/23/18 at 21:00 Allergies Coded Allergies: No Known Allergies (Unverified , 09/23/18) Objective Physical Examination Examination GENERAL APPEARANCE: Comfortable. SKIN: Warm and moist. HEENT: Normocephalic, atraumatic. [place] palpebral conjunctiva, anicteric sclerae. Lips and mucosa appear moist. NECK: Supple, no thyromegaly. No obvious jugular venous distention. LUNGS: Clear to auscultation bilaterally. No wheezing appreciated. HEART: No chest wall abnormalities. Regular rate and rhythm with no murmurs appreciated. ABDOMEN: Abdomen is morbidly obese, soft, minimally distended. He is for port sites, all covered with gauze and Tegaderm with minimal staining on them. Minimal discomfort with palpation deeply at the right lower quadrant area. Mild incisional discomfort with palpation around the area of the port sites.. EXTREMITIES: Extremities have no deformities. No edema identified. Vital Signs Vital Signs Date Time Temp Pulse Resp B/P (MAP) Pulse Ox O2 Delivery O2 Flow Rate FiO2 09/25/18 07:24 18 09/25/18 06:00 98.0 86 146/78 (100) 90 09/25/18 02:27 NIPPV (BIPAP/CPAP) 09/24/18 14:00 2.0 I&Os I&O- Last 24 Hours up to 6 AM 09/25/18 06:00 Intake Total 3400 ml Output Total 1200 ml Balance 2200 ml Laboratory Data Labs 24H Laboratory Tests 2 09/25/18 06:36: Immature Granulocyte % (Auto) 0.5, White Blood Count 7.6, Red Blood Count 4.42, Hemoglobin 13.3L, Hematocrit 40.2L, Mean Corpuscular Volume 91.0, Mean Corpuscular Hemoglobin 30.1, Mean Corpuscular Hemoglobin Concent 33.1, Red Cell Distribution Width 13.1, Platelet Count 239, Neutrophils (%) (Auto) 70.2H, Lymphocytes (%) (Auto) 17.2L, Monocytes (%) (Auto) 8.8H, Eosinophils (%) (Auto) 2.6, Basophils (%) (Auto) 0.7, Neutrophils # (Auto) 5.4, Lymphocytes # (Auto) 1.3L, Monocytes # (Auto) 0.7, Eosinophils # (Auto) 0.2, Basophils # (Auto) 0.1, Nucleated Red Blood Cells % (auto) 0.0, Anion Gap 5L, Glomerular Filtration Rate > 60.0, Blood Urea Nitrogen 15, Creatinine 0.88, Sodium Level 138, Potassium Level 4.2, Chloride Level 105, Carbon Dioxide Level 28, Calcium Level 8.5 CBC/BMP Laboratory Tests 09/25/18 06:36 Red Blood Count 4.42, Mean Corpuscular Volume 91.0, Mean Corpuscular Hemoglobin 30.1, Mean Corpuscular Hemoglobin Concent 33.1, Red Cell Distribution Width 13.1, Neutrophils (%) (Auto) 70.2 H, Lymphocytes (%) (Auto) 17.2 L, Monocytes (%) (Auto) 8.8 H, Eosinophils (%) (Auto) 2.6, Basophils (%) (Auto) 0.7, Neutrophils # (Auto) 5.4, Lymphocytes # (Auto) 1.3 L, Monocytes # (Auto) 0.7, Eosinophils # (Auto) 0.2, Basophils # (Auto) 0.1, Calcium Level 8.5 Microbiology Microbiology 09/23/18 Blood Culture - Preliminary, Resulted No growth after 24 hours . All specim... 09/23/18 Blood Culture - Preliminary, Resulted No growth after 24 hours . All specim... Impression Postop day 1 after laparoscopic appendectomy for acute appendicitis Morbid obesity with a BMI of 60.8 Sleep apnea He looks well this morning. His labs were reviewed with him. His leukocytosis has resolved. He could go home with when necessary pain medications. He does not need any further antibiotics. I discussed with him postop incision care. Follow- up with me in 2 weeks or earlier if he is experiencing any problems. Plan / VTE VTE Prophylaxis Ordered?: Yes CARLO ELDER MD Sep 25, 2018 09:30
[2018-09-25 10:00] VITALS: BP 146/82
== END 2018-09-25 11:05 | disposition home or self-care (01) ==
LOC: M ED 19:34 → M SDC 20:58 → M MSPAV 22:16 → M SDC 09-25 11:05
PROVIDERS: ATTEND Surgery
DX: K35.80 Unspecified acute appendicitis (principal); E66.01 Morbid (severe) obesity due to excess calories; Z68.44 Body mass index [BMI] 60.0-69.9, adult; I10 Essential (primary) hypertension; G47.33 Obstructive sleep apnea (adult) (pediatric); K21.9 Gastro-esophageal reflux disease without esophagitis; M51.36 Other intervertebral disc degeneration, lumbar region; D64.9 Anemia, unspecified; Z79.899 Other long term (current) drug therapy
CPT/HCPCS: 36415; 44970; 80048; 80076; 81001; 83690; 85025; 87040; 88302; 93041; 96360; 96361; 96365; 96366; 96375; 96376; 99284; C9113; J0744; J1650; J1885; J2250; J2270; J2405; J2543; J2765; J3010

== ENCOUNTER → 2018-12-25 | Outpatient (CLI) | payer OTHER ==
[~2018-12-25] MED LIST changes: +ACET300T52 PO; -DULO1CAP2; +DULO1CAP5; +DULO1CAP6 PO; +GABA-845 PO; +LISI10TA4 PO; +NEUR800T PO; +OMEP40CA2 PO; +PERCOCET PO
--- NOTE | 2019-01-05 01:27 | ECWPNPC ---
PATIENT NAME: STEF PRADO : 1965 GENDER: MALE VISIT DATE: 12/25/2018 DISCHARGE DATE: 12/25/18 1021 VISIT LOCKED DATE TIME: PHYSICIAN: FEDERICA FLORES MD RESOURCE: FEDERICA FLORES MD REASON FOR APPOINTMENT 1. BACK HISTORY OF PRESENT ILLNESS PAIN SCREENING: PATIENT HAS A COMPLAINT OF ACUTE OR CHRONIC PAIN :YES 53 YEAR OLD MALE PATIENT WITH A HISTORY OF CHRONIC NECK AND ARM PAIN. THE PATIENT DESCRIBES THE PAIN ACHING, SHOOTING, DAILY, AND CONTINUOUS WITH A PAIN SCORE OF 7-10/10 DEPENDING ON PHYSICAL ACTIVITY. THE PATIENT STATES THE PAIN BEGINS IN HIS NECK AND RADIATES DOWN BOTH ARMS, BUT MAINLY ON HIS LEFT SIDE. THE PATIENT SAYS HE HAS BEEN SUFFERING FROM THIS PAIN FOR MANY YEARS. THE PATIENT SAYS HE HAS TRIED MEDICATION MANAGEMENT AND PHYSICAL THERAPY, HOWEVER THE PAIN PERSISTS. THE PATIENT MENTIONS HE ALSO HAS LOW BACK PAIN, BUT THE MAIN PAIN IS IN HIS NECK AND ARMS CURRENTLY. PATIENT DENIES UNEXPLAINABLE WEIGHT LOSS, FEVER, CHILLS, NEW CHANGES ON HIS URINARY OR BOWEL CONTROL. FALL RISK SCREENING: SCREENING :NO FALLS REPORTED IN THE LAST YEAR CURRENT MEDICATIONS TAKING GABAPENTIN 800 MG TABLET 1 CAPSULE ORALLY THREE TIMES A DAY, NOTES: DR. CASTILLO STARTED 02/20/18 TAKING DULOXETINE HCL 60 MG CAPSULE DELAYED RELEASE PARTICLES 1 CAPSULE ORALLY ONCE A DAY TAKING LISINOPRIL 10 MG TABLET 1 TABLET ORALLY ONCE A DAY TAKING OMEPRAZOLE 40 MG CAPSULE DELAYED RELEASE 1 CAPSULE ORALLY TWICE A DAY, NOTES: [facility] TAKING ACETAMINOPHEN-CODEINE #4 300-60 MG TABLET (SCHEDULE III DRUG) TAKE ONE TABLET BY MOUTH EVERY 4 HOURS NEEDED FOR PAIN MAXIMUM DAILY DOSE 6 ORAL TAKING BUSPAR 15 MG TABLET 1 TABLET ORALLY TWICE A DAY NOT-TAKING MUCINEX 600 MG TABLET EXTENDED RELEASE 12 HOUR 1 TABLET NEEDED ORALLY EVERY 12 HRS NOT-TAKING ACETAMINOPHEN-CODEINE #3 300-30 MG TABLET 1 TABLET NEEDED ORALLY EVERY 6 HRS, NOTES: MEDICATION LIST REVIEWED AND RECONCILED WITH THE PATIENT PAST MEDICAL HISTORY GERD DDD WITH CHRONIC LOW BACK PAIN - DR. NATH (POSSIBLE OLD COMPRESSION FRACTURE PER LUMBAR SPINE X-RAY01/2015) ANXIETY MORBID OBESITY RAYMON ON CPAP HTN CHRONIC ANEMIA - IRON STUDIES, B12/FOLATE/TSH NORMAL 07/2017 BILATERAL BICEPS TENDON TEAR07/2016 CHRONIC BACK PAIN ALLERGIES N.K.D.A. SURGICAL HISTORY EGD/COLONOSCOPY 2014 BICEP REPAIR-LEFT ARM 08/07/2017 BICEP REPAIR,TENDON REPAIR-RIGHT ARM 01/29/18 APPENDECTOMY 09/2018 FAMILY HISTORY FATHER: ALIVE 74 YRS MOTHER: ALIVE 72 YRS HE DENIES ANY FAMILY HISTORY OF CVA, [place], DM, CANCERS, KIDNEY PROBLEMS, HYPERTENSION, BLOOD DISORDERS. SOCIAL HISTORY GENERAL: TOBACCO USE ARE YOU A:FORMER SMOKER HOW LONG HAS IT BEEN SINCE YOU LAST SMOKED?> 10 YEARS HOUSING: RENTS APARTMENT. EDUCATION LEVEL OF EDUCATION:FINISHED HIGH SCHOOL DIET: REGULAR. LANGUAGE LANGUAGES SPOKEN:[place] DOMESTIC VIOLENCE STATUS: DO YOU FEEL SAFE IN YOUR ENVIRONMENT?YES BMI CARE GOAL FOLLOW-UP ABOVE NORMAL BMI FOLLOW-UPDIETARY MANAGEMENT EDUCATION, GUIDANCE, AND COUNSELING RECREATIONAL DRUG USE DRUG USE?NO EXERCISE: NO REGULAR EXERCISE. LEARNING BARRIERS / SPECIAL NEEDS CHANGE FROM LAST VISIT?NO BARRIERS TO LEARNING?NO HEARING IMPAIRED?NO VISION IMPAIRED?YES COGNITIVELY IMPAIRED?NO :CORRECTIVE LENSES READINESS TO LEARN?YES LEARNING PREFERENCES?NO LEARNING CAPABILITIES PRESENT?YES EMOTIONAL BARRIERS?NO SPECIAL DEVICES?NO SUPERVISOR CIGAR MAKING HAND NEEDED?NO PAIN CLINIC PFS, CLERGY, PUBLIC HEALTH REFERRALS HAS THE PATIENT BEEN EDUCATED REGARDING HIS/HER PLAN OF CARE?YES HAS THE PATIENT BEEN EDUCATED REGARDING PAIN, THE RISK FOR PAIN, THE IMPORTANCE OF EFFECTIVE PAIN MANAGEMENT, AND THE PAIN ASSESSMENT PROCESS?YES LATEX QUESTIONNAIRE LATEX ALLERGY : HAVE YOU EVER DEVELOPED ANY TYPE OF REACTION AFTER HANDLING LATEX PRODUCTS SUCH RUBBER GLOVES, CONDOMS, DIAPHRAGMS, BALLOONS, SOCKS, OR UNDERWEAR?NO LATEX ALLERGY : HAVE YOU EVER DEVELOPED ANY TYPE OF REACTION DURING OR AFTER DENTAL APPOINTMENT, VAGINAL/RECTAL EXAMINATION, SURGICAL PROCEDURE, OR ANY OTHER EXPOSURE?NO LATEX RISK : HAVE YOU EVER HAD ANY DIFFICULTY BREATHING OR HIVES AFTER EATING OR HANDLING ANY FRUITS, OR VEGETABLES; SUCH KIWI, BANANAS, STONE FRUITS, OR CHESTNUTSNO LATEX RISK : DO YOU HAVE A PREVIOUS PERSONAL HISTORY OF MORE THAN NINE SURGERIES, SPINA BIFIDA, OR REPEATED CATHERIZATIONS? NO LATEX RISK : ARE YOU FREQUENTLY EXPOSED TO LATEX PRODUCTS IN YOUR OCCUPATION?NO DATE ASKED : 12/25/2018 CAFFEINE 1-2/DAY. ADVANCE DIRECTIVE ADVANCE DIRECTIVE DISCUSSED WITH PATIENT:YES PT DOES NOT HAVE HCP AND DECLINES INFORMATION AT THIS TIME 12/25/18 MARITAL STATUS: - 6 CHILDREN. ALCOHOL SCREENING DID YOU HAVE A DRINK CONTAINING ALCOHOL IN THE PAST YEAR?YES HOW OFTEN DID YOU HAVE SIX OR MORE DRINKS ON ONE OCCASION IN THE PAST YEAR?LESS THAN MONTHLY (1 POINT) HOW MANY DRINKS DID YOU HAVE ON A TYPICAL DAY WHEN YOU WERE DRINKING IN THE PAST YEAR?3 OR 4 (1 POINT) HOW OFTEN DID YOU HAVE A DRINK CONTAINING ALCOHOL IN THE PAST YEAR?MONTHLY OR LESS (1 POINT) POINTS3 INTERPRETATIONNEGATIVE OCCUPATION: UNEMPLOYED - PREVIOUSLY A [employer]. SEXUAL HX HAD SEX IN THE LAST 12 MONTHS (VAGINAL, ORAL, OR ANAL)?: YES, WITH: WOMEN ONLY, USE PROTECTION?: NO, HAVE YOU EVER HAD AN STD?: NO. REVIEWED WITH PT 12/25/18 5438 BV. HOSPITALIZATION/MAJOR DIAGNOSTIC PROCEDURE SBO - ADMITTED BY DR. ELDER - RESOLVED WITHOUT INTERVENTION 10/2014 COLLAPSED RIGHT LUNG 01/29- REVIEW OF SYSTEMS REVIEWED BY: PROVIDER: FEDERICA FLORES MD . CONSTITUTIONAL: ANY CHANGE IN YOUR MEDICAL CONDITION? NO . CHILLS NO . FEVER NO . INFECTION: DO YOU HAVE NEW INFECTIONS? NO . DO YOU HAVE HISTORY OF MRSA? NO . MUSCULOSKELETAL: ANY NEW PATTERNS OF PAIN OR NUMBNESS? YES, PAIN IN UPPER BACK/NECK HAS BEEN INCREASING OVER THE PAST FEW MONTHS AND TRAVELS DOWN BILATERAL ARMS (LEFT >RIGHT) . SYTEMIC LUPUS NO . GASTROENTEROLOGY: ANY NEW CHANGE IN BOWEL CONTROL? NO . BARRETTS ESOPHAGUS NO . CIRRHOSIS NO . HEPATITIS NO . LIVER FAILURE NO . ACID REFLUX NO, YES . UNEXPLAINED WEIGHT LOSS NO . GENITOURINARY: ANY NEW CHANGE IN BLADDER CONTROL? NO . IS THERE A CHANCE YOU COULD BE ? NO . HEMATOLOGY/LYMPH: DO YOU TAKE ANY BLOOD THINNERS? (FOR EXAMPLE- COUMADIN, PLAVIX, AGGRENOX, PLATEL, PRADAXA, OR XARELTO) NO . WHEN WAS YOUR LAST DOSE? DATE: TIME: . LOW PLATELET COUNT NO . SICKLE CELL DISEASE NO . VON WILLIEBRANDS NO . FACTOR V LEIDEN NO . THALLASEMIA NO . ANEMIA NO . EASY BRUISING NO . NEUROLOGY: HAVE YOU FALLEN IN THE PAST 12 MONTHS? NO . ANY NEW EXTREMITY NUMBNESS OR WEAKNESS? NO . HEAD INJURY NO . DEMENTIA NO . CEREBRAL PALSY NO . MULTIPLE SCLEROSIS NO . DIZZINESS NO . HEADACHE NO . STROKES NO . VERTIGO NO . CARDIOLOGY: DO YOU HAVE A PACEMAKER OR DEFIBRILLATOR? NO . ANGINA NO . HEART ATTACK NO . HEART SURGERY NO . CONGESTIVE HEART FAILURE/FLUID OVERLOAD NO . CHEST PAIN NO . HIGH BLOOD PRESSURE ON MEDICATION(S) . IRREGULAR HEART BEAT NO . RESPIRATORY: HAVE YOU BEEN SICK IN THE PAST WEEK? NO . FEVER NO . FLU LIKE SYMPTOMS? NO . CPAP YES, USES CPAP MACHINE NIGHTLY . BYPAP NO . ASTHMA NO . EMPHYSEMA NO . CHRONIC LUNG DISEASES NO . SHORTNESS OF BREATH ON EXERTION NO . COUGH NO . SNORING NO . INTEGUMENTARY: DO YOU HAVE ANY RASHES OR OPEN SORES? NO . ALLERGIC/IMMUNO: ARE YOU ALLERGIC TO IV DYE? NO . ANY NEW ALLERGIES? NO . PSYCHIATRIC: DO YOU HAVE THOUGHTS OF HURTING YOURSELF OR SOMEONE ELSE? NO . ARE YOU ABUSED, NEGLECTED, OR IN AN UNSAFE ENVIRONMENT? NO . ENDOCRINOLOGY: ARE YOU DIABETIC? NO . THYROID DISORDER NO . OTHER: DO YOU NEED ANY PRESCRIPTIONS? NO . IF YES, PLEASE LIST: ____ . ANY NEW PROBLEMS WITH YOUR MEDICATIONS? NO . WHEN DID YOU LAST EAT? ____ . WHEN DID YOU LAST DRINK? ____ . WHAT DID YOU LAST DRINK? ____ . NAME OF PERSON DRIVING YOU HOME? ____ . DO YOU HAVE ANY OTHER QUESTIONS OR CONCERNS NO . VITAL SIGNS WT 404.4 LBS, HT 68 IN, BMI 61.48 INDEX, BP 184/92 MM HG, HR 76 /MIN, RR 20 /MIN, TEMP 97.3 F, OXYGEN SAT % 96%, NA INITIALS SC 09:29, REVIEWED BY: BV. EXAMINATION GENERAL EXAMINATION: PATIENT IS ALERT O X 3 AND COOPERATIVE. LUNGS CLEAR, TO AUSCULTATION. HEART: NO MURMURS OR GALLOPS; FACIAL CRANIAL NERVES ARE GROSSLY NORMAL. GOOD SYMMETRY OF FACIAL MUSCLE MOVEMENT. NORMAL VISUAL GUIDRY. PATIENT HAS DIFFICULTY STANDING UP MAINLY ASSOCIATED WITH LOW BACK PAIN. PATIENT CAN ABDUCT UPPER EXTREMITIES, WITH SOME DIFFICULTY ON THE LEFT SIDE THAT CAN ONLY REACH SHOULDER LEVEL. LEFT ARM IS WEAKER AT EXTENSION AND FLEXION. SOME SURGICAL SCARS NEAR THE RIGHT AND LEFT ELBOW DUE TO PREVIOUS OPERATIONS. HAND SHAREPOINT ADMIN ON BOTH SIDES ARE ADEQUATE. EXTENSION OF THE HEAD CREATES PAIN SENSATIONS IN THE LEFT SHOULDER AND LEFT ARM. MRI OF THE CERVICAL SPINE DONE ON 06/20/2018 SHOWS BULDING DISCS AND DISC PROTRUSIONS AT MULTIPLE LEVELS. ASSESSMENTS CERVICAL DISC DISORDER WITH RADICULOPATHY OF CERVICAL REGION - M50.10 (PRIMARY) TREATMENT CERVICAL DISC DISORDER WITH RADICULOPATHY OF CERVICAL REGION CLINICAL NOTES: WE DISCUSSED SEVERAL ISSUES WITH MR. PRADO'S PAIN MANAGEMENT CASE. DUE TO THE CERVICAL RADICULOPATHY, I WOULD LIKE TO MOVE FORWARD WITH A CERVICAL EPIDURAL STEROID INJECTION AT THIS TIME. WE DISCUSSED THE BENEFITS, RISKS, AND ALTERNATIVES OF THE INJECTION AND THE PATIENT WOULD LIKE TO PROCEED. I AM LOOKING FOR LONG LASTING PAIN RELIEF FROM THIS PROCEDURE FOR THE PATIENT. THE PATIENT WILL FOLLOW UP IN SEVERAL WEEKS WITH NURSE PRACTITIONER NICKY. INSTRUCTIONS WERE GIVEN, QUESTIONS WERE ANSWERED, PATIENT REPORTS UNDERSTANDING AND AGREES WITH THE PLAN. I, GIL ELLIOTT, DOCUMENTED THE ABOVE INFORMATION ACTING A SCRIBE FOR DR. FLORES. I HAVE REVIEWED THE ABOVE DOCUMENT, WRITTEN BY GIL ZUÑIGAIBJeanmarie AND I VERIFY THAT IT IS ACCURATE. DEAR ORLANDO VENEGAS: THANK YOU FOR YOUR KIND REFERRAL OF STEF PRADOJR. IF YOU WANT TO DISCUSS HIS CASE WITH ME PLEASE CALL ME AT THE PAIN CENTER AT [phone]. SINCERELY, FEDERICA FLORES MD PAIN MEDICINE . PROCEDURE CODES FA211 ESTABILISHED PATIENT [facility] FACILITY CHARGE [id number] CURRENT MEDS W/DOSAGES DOCUMENTED [id number] PAIN ASSESS POS TOOL F/U PLAN DOC DISPOSITION & COMMUNICATION FOLLOW UP 3 WEEKS (REASON: CERVICAL EPIDURAL, F/U WITH RN ANESTHESIOLOGY) ELECTRONICALLY SIGNED BY FEDERICA FLORES MD, MD ON 01/04/2019 AT 04:11 PM EDT DISCLAIMER : THIS IS A VISIT SUMMARY EXTRACTED FROM THE [employer] CHART. IT IS NOT A COPY OF THE [employer] PROGRESS NOTE. MTDD
== END ==
LOC: M PAIN 09:30
PROVIDERS: ATTEND Anesthesiology
DX: M50.10 Cervical disc disorder with radiculopathy, unspecified cervical region (principal); K21.9 Gastro-esophageal reflux disease without esophagitis; M51.36 Other intervertebral disc degeneration, lumbar region; F41.9 Anxiety disorder, unspecified; E66.01 Morbid (severe) obesity due to excess calories; Z68.44 Body mass index [BMI] 60.0-69.9, adult; G47.33 Obstructive sleep apnea (adult) (pediatric); I10 Essential (primary) hypertension; D64.9 Anemia, unspecified; Z90.49 Acquired absence of other specified parts of digestive tract; Z87.891 Personal history of nicotine dependence; Z79.899 Other long term (current) drug therapy

== ENCOUNTER → 2019-02-04 | Outpatient (CLI) | payer OTHER, MEDICAID ==
[~2019-02-04] MED LIST changes: +ISOVUE-M 200 41% 20ML VIAL (Q9966) As Ordered ONE; +LIDOCAINE 1% SDV INJ 30 ML VIAL As Ordered ONE; +diazePAM 5 MG TAB As Ordered ONE; +methylPREDNISolone SUSP 40 MG/ML (DEPO-medrol) VIAL (J1030) As Ordered ONE; +oxyCODONE 5MG TAB As Ordered ONE
--- NOTE | 2019-02-04 13:49 | REP ---
PARTIAL CERVICAL SPINE SERIES: Two views. HISTORY: Cervical steroid injection for pain. 50 seconds of fluoroscopy time is reported. FINDINGS: A sequence of two last image hold fluoroscopically obtained spot radiographs of the cervicothoracic junction document needle position and contrast injection associated with injection procedure. Electronically Signed by Edward Blackman MD 02/04/2019 04:47 P
--- NOTE | 2019-02-12 02:16 | ECWPNPC ---
PATIENT NAME: STEF PRADO : 1965 GENDER: MALE VISIT DATE: 02/04/2019 DISCHARGE DATE: 02/04/19 1110 VISIT LOCKED DATE TIME: PHYSICIAN: FEDERICA FLORES MD RESOURCE: FEDERICA FLORES MD REASON FOR APPOINTMENT 1. CERVICAL EPIDURAL HISTORY OF PRESENT ILLNESS HISTORY OF PRESENT ILLNESS: PAIN THE PATIENT DESCRIBES THE PAIN... FALL RISK SCREENING: SCREENING :NO FALLS REPORTED IN THE LAST YEAR CURRENT MEDICATIONS TAKING GABAPENTIN 800 MG TABLET 1 CAPSULE ORALLY THREE TIMES A DAY, NOTES: 02/03/20191999 TAKING DULOXETINE HCL 60 MG CAPSULE DELAYED RELEASE PARTICLES 1 CAPSULE ORALLY ONCE A DAY, NOTES: 02/03/191999 TAKING LISINOPRIL 10 MG TABLET 1 TABLET ORALLY ONCE A DAY TAKING OMEPRAZOLE 40 MG CAPSULE DELAYED RELEASE 1 CAPSULE ORALLY TWICE A DAY, NOTES: [facility] TAKING ACETAMINOPHEN-CODEINE #4 300-60 MG TABLET (SCHEDULE III DRUG) TAKE ONE TABLET BY MOUTH EVERY 4 HOURS NEEDED FOR PAIN MAXIMUM DAILY DOSE 6 ORAL , NOTES: 02/03/191999 TAKING BUSPAR 15 MG TABLET 1 TABLET ORALLY TWICE A DAY, NOTES: 02/03/19 TAKING METFORMIN HCL 500 MG TABLET 1 TABLET WITH A MEAL ORALLY BID, NOTES: 02/03/191999 TAKING TOPIRAMATE 100 MG TABLET 1 TABLET ORALLY BID, NOTES: 02/03/191999 NOT-TAKING MUCINEX 600 MG TABLET EXTENDED RELEASE 12 HOUR 1 TABLET NEEDED ORALLY EVERY 12 HRS NOT-TAKING ACETAMINOPHEN-CODEINE #3 300-30 MG TABLET 1 TABLET NEEDED ORALLY EVERY 6 HRS, NOTES: MEDICATION LIST REVIEWED AND RECONCILED WITH THE PATIENT PAST MEDICAL HISTORY GERD DDD WITH CHRONIC LOW BACK PAIN - DR. NATH (POSSIBLE OLD COMPRESSION FRACTURE PER LUMBAR SPINE X-RAY01/2015) ANXIETY MORBID OBESITY RAYMON ON CPAP HTN CHRONIC ANEMIA - IRON STUDIES, B12/FOLATE/TSH NORMAL 07/2017 BILATERAL BICEPS TENDON TEAR07/2016 CHRONIC BACK PAIN ALLERGIES N.K.D.A. SURGICAL HISTORY EGD/COLONOSCOPY 2014 BICEP REPAIR-LEFT ARM 08/07/2017 BICEP REPAIR,TENDON REPAIR-RIGHT ARM 01/29/18 APPENDECTOMY 09/2018 FAMILY HISTORY FATHER: ALIVE 74 YRS MOTHER: ALIVE 72 YRS HE DENIES ANY FAMILY HISTORY OF CVA, [place], DM, CANCERS, KIDNEY PROBLEMS, HYPERTENSION, BLOOD DISORDERS. SOCIAL HISTORY GENERAL: TOBACCO USE ARE YOU A:FORMER SMOKER HOW LONG HAS IT BEEN SINCE YOU LAST SMOKED?> 10 YEARS HOUSING: RENTS APARTMENT. EDUCATION LEVEL OF EDUCATION:FINISHED HIGH SCHOOL DIET: REGULAR. LANGUAGE LANGUAGES SPOKEN:[place] DOMESTIC VIOLENCE STATUS: DO YOU FEEL SAFE IN YOUR ENVIRONMENT?YES BMI CARE GOAL FOLLOW-UP ABOVE NORMAL BMI FOLLOW-UPDIETARY MANAGEMENT EDUCATION, GUIDANCE, AND COUNSELING RECREATIONAL DRUG USE DRUG USE?NO EXERCISE: NO REGULAR EXERCISE. LEARNING BARRIERS / SPECIAL NEEDS CHANGE FROM LAST VISIT?NO BARRIERS TO LEARNING?NO HEARING IMPAIRED?NO VISION IMPAIRED?YES COGNITIVELY IMPAIRED?NO :CORRECTIVE LENSES READINESS TO LEARN?YES LEARNING PREFERENCES?NO LEARNING CAPABILITIES PRESENT?YES EMOTIONAL BARRIERS?NO SPECIAL DEVICES?NO TAPE CUTTING MACHINE OPERATOR NEEDED?NO PAIN CLINIC PFS, CLERGY, PUBLIC HEALTH REFERRALS HAS THE PATIENT BEEN EDUCATED REGARDING HIS/HER PLAN OF CARE?YES HAS THE PATIENT BEEN EDUCATED REGARDING PAIN, THE RISK FOR PAIN, THE IMPORTANCE OF EFFECTIVE PAIN MANAGEMENT, AND THE PAIN ASSESSMENT PROCESS?YES LATEX QUESTIONNAIRE LATEX ALLERGY : HAVE YOU EVER DEVELOPED ANY TYPE OF REACTION AFTER HANDLING LATEX PRODUCTS SUCH RUBBER GLOVES, CONDOMS, DIAPHRAGMS, BALLOONS, SOCKS, OR UNDERWEAR?NO LATEX ALLERGY : HAVE YOU EVER DEVELOPED ANY TYPE OF REACTION DURING OR AFTER DENTAL APPOINTMENT, VAGINAL/RECTAL EXAMINATION, SURGICAL PROCEDURE, OR ANY OTHER EXPOSURE?NO DATE ASKED : 12/25/2018 LATEX RISK : HAVE YOU EVER HAD ANY DIFFICULTY BREATHING OR HIVES AFTER EATING OR HANDLING ANY FRUITS, OR VEGETABLES; SUCH KIWI, BANANAS, STONE FRUITS, OR CHESTNUTSNO LATEX RISK : DO YOU HAVE A PREVIOUS PERSONAL HISTORY OF MORE THAN NINE SURGERIES, SPINA BIFIDA, OR REPEATED CATHERIZATIONS? NO LATEX RISK : ARE YOU FREQUENTLY EXPOSED TO LATEX PRODUCTS IN YOUR OCCUPATION?NO CAFFEINE 1-2/DAY. ADVANCE DIRECTIVE ADVANCE DIRECTIVE DISCUSSED WITH PATIENT:YES PT DOES NOT HAVE HCP AND DECLINES INFORMATION AT THIS TIME 02/04/2019 MARITAL STATUS: - 6 CHILDREN. ALCOHOL SCREENING DID YOU HAVE A DRINK CONTAINING ALCOHOL IN THE PAST YEAR?YES HOW OFTEN DID YOU HAVE SIX OR MORE DRINKS ON ONE OCCASION IN THE PAST YEAR?LESS THAN MONTHLY (1 POINT) HOW MANY DRINKS DID YOU HAVE ON A TYPICAL DAY WHEN YOU WERE DRINKING IN THE PAST YEAR?3 OR 4 (1 POINT) HOW OFTEN DID YOU HAVE A DRINK CONTAINING ALCOHOL IN THE PAST YEAR?MONTHLY OR LESS (1 POINT) POINTS3 INTERPRETATIONNEGATIVE OCCUPATION: UNEMPLOYED - PREVIOUSLY A [employer]. SEXUAL HX HAD SEX IN THE LAST 12 MONTHS (VAGINAL, ORAL, OR ANAL)?: YES, WITH: WOMEN ONLY, USE PROTECTION?: NO, HAVE YOU EVER HAD AN STD?: NO. REVIEWED WITH PT 12/25/18 0930 BVREVIEWED WITH PT 02/04/2019 0910 LAS. HOSPITALIZATION/MAJOR DIAGNOSTIC PROCEDURE SBO - ADMITTED BY DR. ELDER - RESOLVED WITHOUT INTERVENTION 10/2014 COLLAPSED RIGHT LUNG 01/29- REVIEW OF SYSTEMS REVIEWED BY: PROVIDER: . CONSTITUTIONAL: ANY CHANGE IN YOUR MEDICAL CONDITION? NO . CHILLS NO . FEVER NO . INFECTION: DO YOU HAVE NEW INFECTIONS? NO . DO YOU HAVE HISTORY OF MRSA? NO . MUSCULOSKELETAL: ANY NEW PATTERNS OF PAIN OR NUMBNESS? NO . GASTROENTEROLOGY: ANY NEW CHANGE IN BOWEL CONTROL? NO . GENITOURINARY: ANY NEW CHANGE IN BLADDER CONTROL? NO . IS THERE A CHANCE YOU COULD BE ? NO . HEMATOLOGY/LYMPH: DO YOU TAKE ANY BLOOD THINNERS? (FOR EXAMPLE- COUMADIN, PLAVIX, AGGRENOX, PLATEL, PRADAXA, OR XARELTO) NO . WHEN WAS YOUR LAST DOSE? DATE: TIME: . NEUROLOGY: HAVE YOU FALLEN IN THE PAST 12 MONTHS? NO . ANY NEW EXTREMITY NUMBNESS OR WEAKNESS? YES PT REPORTS NEW TINGLING DOWN LEFT SHOULDER AND ARM. . CARDIOLOGY: DO YOU HAVE A PACEMAKER OR DEFIBRILLATOR? NO . RESPIRATORY: HAVE YOU BEEN SICK IN THE PAST WEEK? NO . FEVER NO . FLU LIKE SYMPTOMS? NO . COUGH NO . INTEGUMENTARY: DO YOU HAVE ANY RASHES OR OPEN SORES? NO . ALLERGIC/IMMUNO: ARE YOU ALLERGIC TO IV DYE? NO . ANY NEW ALLERGIES? NO . PSYCHIATRIC: DO YOU HAVE THOUGHTS OF HURTING YOURSELF OR SOMEONE ELSE? NO . ARE YOU ABUSED, NEGLECTED, OR IN AN UNSAFE ENVIRONMENT? NO . ENDOCRINOLOGY: ARE YOU DIABETIC? NO . OTHER: DO YOU NEED ANY PRESCRIPTIONS? NO . IF YES, PLEASE LIST: ____ . ANY NEW PROBLEMS WITH YOUR MEDICATIONS? NO . WHEN DID YOU LAST EAT? ____1999 . WHEN DID YOU LAST DRINK? ____02/03/19 07 . WHAT DID YOU LAST DRINK? ____WATER . NAME OF PERSON DRIVING YOU HOME? ____KASEY . DO YOU HAVE ANY OTHER QUESTIONS OR CONCERNS NO . VITAL SIGNS WT 396.2 LBS, HT 68 IN, BMI 60.24 INDEX, BP 140/99 MM HG, HR 81 /MIN, RR 20 /MIN, TEMP 97.8 F, OXYGEN SAT % 96%, SAFE IN ENV? (Y/N) YES, NA INITIALS CO 09:14, REVIEWED BY: ASSESSMENTS CERVICAL DISC DISORDER WITH RADICULOPATHY OF CERVICAL REGION - M50.10 (PRIMARY) TREATMENT CERVICAL DISC DISORDER WITH RADICULOPATHY OF CERVICAL REGION [facility] FLUORO GUIDE SPINE INJECTION (PAIN)[id number] PROCEDURES PN CERVICAL EPIDURAL PRE PROCEDURE DIAGNOSIS CERVICAL DISC DISORDER WITH RADICULOPATHY POST PROCEDURE DIAGNOSIS CERVICAL DISC DISORDER WITH RADICULOPATHY PROCEDURE CERVICAL EPIDURAL STEROID INJECTION UNDER FLUOROSCOPIC GUIDANCE SURGEON DR. FEDERICA FLORES YARN PACKER NONE ANESTHESIA LOCAL PRE PROCEDURE NOTE THE PATIENT HAS A HISTORY OF CHRONIC CERVICAL PAIN. I EVALUATED THE PATIENT AND REVIEWED THE CHART. I WENT OVER THE RISKS, ALTERNATIVES, AND BENEFITS ASSOCIATED WITH THIS PROCEDURE. THE PATIENT WOULD LIKE TO PROCEED AND GIVES CONSENT TO PERFORM THE PROCEDURE. THE PATIENT DENIES UNEXPLAINABLE WEIGHT LOSS, FEVER, CHILLS, OR NEW CHANGES IN URINARY OR BOWEL CONTROL DESCRIPTION OF PROCEDURE THE PATIENT WAS BROUGHT TO THE PROCEDURE ROOM AND PLACED IN THE PRONE POSITION. THE CERVICOTHORACIC AREA WAS CLEANED WITH BETADINE SOLUTION AND DRAPED ASEPTICALLY. THE PROCEDURE WAS DONE UNDER STERILE CONDITIONS. I CHECKED LATERALITY AND THE LEVEL WHERE THE PROCEDURE WAS GOING TO BE PERFORMED WITH THE PATIENT AND THE SUPPORTING STAFF AT THE MOMENT OF THE TIME OUT IN THE PROCEDURE ROOM. UNDER FLUOROSCOPIC GUIDANCE, THE TARGET WAS SELECTED AT THE INTERLAMINAR LEVEL OF C7-T1. LIDOCAINE WAS USED TO NUMB THE SKIN AND THE SUBCUTANEOUS TISSUE BELOW IT. EPIDURAL TUOHY NEEDLE 17-GAUGE WAS ADVANCED UNDER FLUOROSCOPIC GUIDANCE AND FOLLOWING PATIENT FEEDBACK UNTIL THE EPIDURAL SPACE WAS REACHED 6 CM DEEP INTO THE SKIN BY THE LOSS OF RESISTANCE TECHNIQUE. ISOVUE M DYE 30%, 0.25 ML, WAS INJECTED SHOWING ADEQUATE SPREAD OF THE DYE. THEN, A SOLUTION OF 3 ML OF NORMAL SALINE WITH DEPO-MEDROL 60 MG WAS INJECTED SLOWLY FOLLOWING PATIENT FEEDBACK. THERE WAS NO EVIDENCE OF BLOOD, PARESTHESIA OR CEREBROSPINAL FLUID DURING THE PROCEDURE. THE PATIENT WAS SENT TO THE RECOVERY ROOM. THE PATIENT WAS MOVING THE EXTREMITIES AND DOING WELL. THERE WAS NO COMPLICATION DURING THE PROCEDURE. FLUOROSCOPY TIME WAS 50 SECONDS POST PROCEDURE NOTE THE PATIENT WILL BE SEEN IN A FOLLOW UP IN THE NEXT FEW WEEKS. INSTRUCTIONS WERE GIVEN, QUESTIONS WERE ANSWERED, AND THE PATIENT EXPRESSED UNDERSTANDING AND AGREES WITH THE PLAN. I, GIL ELLIOTT, DOCUMENTED THE ABOVE INFORMATION ACTING A SCRIBE FOR DR. FLORES. I HAVE REVIEWED THE ABOVE DOCUMENT, WRITTEN BY GIL ELLIOTT SCRIBJeanmarie AND I VERIFY THAT IT IS ACCURATE. PROCEDURE CODES 19965 CERVICAL/THORACIC W/ IMAGING 6045F RADXPS IN END [id number] PXD DISPOSITION & COMMUNICATION FOLLOW UP 3 WEEKS ELECTRONICALLY SIGNED BY FEDERICA FLORES MD, MD ON 02/11/2019 AT 01:29 PM EDT DISCLAIMER : THIS IS A VISIT SUMMARY EXTRACTED FROM THE [employer] CHART. IT IS NOT A COPY OF THE [email or web address] PROGRESS NOTE. KVNG
== END ==
LOC: M PAIN 09:15
PROVIDERS: ATTEND Anesthesiology
DX: M50.10 Cervical disc disorder with radiculopathy, unspecified cervical region (principal); K21.9 Gastro-esophageal reflux disease without esophagitis; F41.9 Anxiety disorder, unspecified; M51.36 Other intervertebral disc degeneration, lumbar region; E66.01 Morbid (severe) obesity due to excess calories; G47.33 Obstructive sleep apnea (adult) (pediatric); I10 Essential (primary) hypertension; D64.9 Anemia, unspecified; Z90.49 Acquired absence of other specified parts of digestive tract; Z87.891 Personal history of nicotine dependence; Z68.44 Body mass index [BMI] 60.0-69.9, adult; Z79.84 Long term (current) use of oral hypoglycemic drugs; Z79.899 Other long term (current) drug therapy
CPT/HCPCS: 62321; J1030; Q9966

== ENCOUNTER → 2019-02-23 | Outpatient (CLI) | payer OTHER, MEDICAID ==
[~2019-02-23] MED LIST changes: -ISOVUE-M 200 41% 20ML VIAL (Q9966) As Ordered ONE; -LIDOCAINE 1% SDV INJ 30 ML VIAL As Ordered ONE; -OMEP40CA2 PO; +OMEP40CA97 PO; -diazePAM 5 MG TAB As Ordered ONE; -methylPREDNISolone SUSP 40 MG/ML (DEPO-medrol) VIAL (J1030) As Ordered ONE; -oxyCODONE 5MG TAB As Ordered ONE
--- NOTE | 2019-02-25 01:10 | ECWPNPC ---
PATIENT NAME: STEF PRADO : 1965 GENDER: MALE VISIT DATE: 02/23/2019 DISCHARGE DATE: 02/23/19 1048 VISIT LOCKED DATE TIME: PHYSICIAN: NICKY SHAH RESOURCE: NICKY SHAH REASON FOR APPOINTMENT 1. POST PROCEDURE HISTORY OF PRESENT ILLNESS HISTORY OF PRESENT ILLNESS: PAIN THE PATIENT DESCRIBES THE PAIN... 53-YEAR-OLD MALE WHO IS IN FOR POST NANNETTE FOLLOW-UP. HE FEELS THE PROCEDURE DID NOT WORK WELL. HE RATED HIS PAIN PREPROCEDURE AT AN 8 OUT OF 10 AND POSTPROCEDURE AT A 8 OUT OF 10. HE RATES HIS PAIN CURRENTLY AT AN 8 OUT OF 10 AND DESCRIBES IT ACHING, SHARP, STABBING, AND SHOOTING. HE DOES ADMIT TO A RECENT INCREASE IN HIS GABAPENTIN TO HELP CONTROL HIS LEFT ARM RADICULAR SYMPTOMS. FALL RISK SCREENING: SCREENING :NO FALLS REPORTED IN THE LAST YEAR CURRENT MEDICATIONS TAKING GABAPENTIN 800 MG TABLET 1 CAPSULE ORALLY THREE TIMES A DAY TAKING DULOXETINE HCL 60 MG CAPSULE DELAYED RELEASE PARTICLES 1 CAPSULE ORALLY ONCE A DAY TAKING LISINOPRIL 10 MG TABLET 1 TABLET ORALLY ONCE A DAY TAKING OMEPRAZOLE 40 MG CAPSULE DELAYED RELEASE 1 CAPSULE ORALLY TWICE A DAY TAKING ACETAMINOPHEN-CODEINE #4 300-60 MG TABLET (SCHEDULE III DRUG) TAKE ONE TABLET BY MOUTH EVERY 4 HOURS NEEDED FOR PAIN MAXIMUM DAILY DOSE 6 ORAL TAKING BUSPAR 15 MG TABLET 1 TABLET ORALLY TWICE A DAY NOT-TAKING METFORMIN HCL 500 MG TABLET 1 TABLET WITH A MEAL ORALLY BID NOT-TAKING TOPIRAMATE 100 MG TABLET 1 TABLET ORALLY BID NOT-TAKING MUCINEX 600 MG TABLET EXTENDED RELEASE 12 HOUR 1 TABLET NEEDED ORALLY EVERY 12 HRS NOT-TAKING ACETAMINOPHEN-CODEINE #3 300-30 MG TABLET 1 TABLET NEEDED ORALLY EVERY 6 HRS, NOTES: MEDICATION LIST REVIEWED AND RECONCILED WITH THE PATIENT PAST MEDICAL HISTORY GERD DDD WITH CHRONIC LOW BACK PAIN - DR. NATH (POSSIBLE OLD COMPRESSION FRACTURE PER LUMBAR SPINE X-RAY01/2015) ANXIETY MORBID OBESITY RAYMON ON CPAP HTN CHRONIC ANEMIA - IRON STUDIES, B12/FOLATE/TSH NORMAL 07/2017 BILATERAL BICEPS TENDON TEAR07/2016 CHRONIC BACK PAIN ALLERGIES N.K.D.A. SURGICAL HISTORY EGD/COLONOSCOPY 2014 BICEP REPAIR-LEFT ARM 08/07/2017 BICEP REPAIR,TENDON REPAIR-RIGHT ARM 01/29/18 APPENDECTOMY 09/2018 FAMILY HISTORY FATHER: ALIVE 74 YRS MOTHER: ALIVE 72 YRS HE DENIES ANY FAMILY HISTORY OF CVA, KS, DM, CANCERS, KIDNEY PROBLEMS, HYPERTENSION, BLOOD DISORDERS. SOCIAL HISTORY GENERAL: TOBACCO USE ARE YOU A:FORMER SMOKER HOW LONG HAS IT BEEN SINCE YOU LAST SMOKED?> 10 YEARS HOUSING: RENTS APARTMENT. EDUCATION LEVEL OF EDUCATION:FINISHED HIGH SCHOOL DIET: REGULAR. LANGUAGE LANGUAGES SPOKEN:PORTUGUESE DOMESTIC VIOLENCE STATUS: DO YOU FEEL SAFE IN YOUR ENVIRONMENT?YES BMI CARE GOAL FOLLOW-UP ABOVE NORMAL BMI FOLLOW-UPDIETARY MANAGEMENT EDUCATION, GUIDANCE, AND COUNSELING RECREATIONAL DRUG USE DRUG USE?NO EXERCISE: NO REGULAR EXERCISE. LEARNING BARRIERS / SPECIAL NEEDS CHANGE FROM LAST VISIT?NO BARRIERS TO LEARNING?NO HEARING IMPAIRED?NO VISION IMPAIRED?YES COGNITIVELY IMPAIRED?NO :CORRECTIVE LENSES READINESS TO LEARN?YES LEARNING PREFERENCES?NO LEARNING CAPABILITIES PRESENT?YES EMOTIONAL BARRIERS?NO SPECIAL DEVICES?NO STITCH MARKER NEEDED?NO PAIN CLINIC PFS, CLERGY, PUBLIC HEALTH REFERRALS HAS THE PATIENT BEEN EDUCATED REGARDING HIS/HER PLAN OF CARE?YES HAS THE PATIENT BEEN EDUCATED REGARDING PAIN, THE RISK FOR PAIN, THE IMPORTANCE OF EFFECTIVE PAIN MANAGEMENT, AND THE PAIN ASSESSMENT PROCESS?YES LATEX QUESTIONNAIRE LATEX ALLERGY : HAVE YOU EVER DEVELOPED ANY TYPE OF REACTION AFTER HANDLING LATEX PRODUCTS SUCH RUBBER GLOVES, CONDOMS, DIAPHRAGMS, BALLOONS, SOCKS, OR UNDERWEAR?NO LATEX ALLERGY : HAVE YOU EVER DEVELOPED ANY TYPE OF REACTION DURING OR AFTER DENTAL APPOINTMENT, VAGINAL/RECTAL EXAMINATION, SURGICAL PROCEDURE, OR ANY OTHER EXPOSURE?NO DATE ASKED : 12/25/2018 LATEX RISK : HAVE YOU EVER HAD ANY DIFFICULTY BREATHING OR HIVES AFTER EATING OR HANDLING ANY FRUITS, OR VEGETABLES; SUCH KIWI, BANANAS, STONE FRUITS, OR CHESTNUTSNO LATEX RISK : DO YOU HAVE A PREVIOUS PERSONAL HISTORY OF MORE THAN NINE SURGERIES, SPINA BIFIDA, OR REPEATED CATHERIZATIONS? NO LATEX RISK : ARE YOU FREQUENTLY EXPOSED TO LATEX PRODUCTS IN YOUR OCCUPATION?NO CAFFEINE 1-2/DAY. ADVANCE DIRECTIVE ADVANCE DIRECTIVE DISCUSSED WITH PATIENT:YES PT DOES NOT HAVE HCP AND DECLINES INFORMATION AT THIS TIME 02/04/2019 MARITAL STATUS: - 6 CHILDREN. ALCOHOL SCREENING DID YOU HAVE A DRINK CONTAINING ALCOHOL IN THE PAST YEAR?YES HOW OFTEN DID YOU HAVE SIX OR MORE DRINKS ON ONE OCCASION IN THE PAST YEAR?LESS THAN MONTHLY (1 POINT) HOW MANY DRINKS DID YOU HAVE ON A TYPICAL DAY WHEN YOU WERE DRINKING IN THE PAST YEAR?3 OR 4 (1 POINT) HOW OFTEN DID YOU HAVE A DRINK CONTAINING ALCOHOL IN THE PAST YEAR?MONTHLY OR LESS (1 POINT) POINTS3 INTERPRETATIONNEGATIVE OCCUPATION: UNEMPLOYED - PREVIOUSLY A [employer]. SEXUAL HX HAD SEX IN THE LAST 12 MONTHS (VAGINAL, ORAL, OR ANAL)?: YES, WITH: WOMEN ONLY, USE PROTECTION?: NO, HAVE YOU EVER HAD AN STD?: NO. REVIEWED WITH PT 12/25/18 0930 BVREVIEWED WITH PT 02/04/2019 0910 LASREVIEWED WITH PT 02/23/19 0952 NLJ. HOSPITALIZATION/MAJOR DIAGNOSTIC PROCEDURE SBO - ADMITTED BY DR. ELDER - RESOLVED WITHOUT INTERVENTION 10/2014 COLLAPSED RIGHT LUNG 01/29- REVIEW OF SYSTEMS REVIEWED BY: PROVIDER: KEENAN ELISE . CONSTITUTIONAL: ANY CHANGE IN YOUR MEDICAL CONDITION? NO . CHILLS NO . FEVER NO . INFECTION: DO YOU HAVE NEW INFECTIONS? NO . DO YOU HAVE HISTORY OF MRSA? NO . MUSCULOSKELETAL: ANY NEW PATTERNS OF PAIN OR NUMBNESS? YES- STATES THAT THE NANNETTE DID NOT WORK AT ALL, STATES HIS PAIN HAS RETURNED TO PRE-PROCEDURE LEVEL, STATES HE HAS SHOTTING PAINS DOWN THE LEFT ARM, STATES HE THINKS HIS PAIN IS WORSE . GASTROENTEROLOGY: ANY NEW CHANGE IN BOWEL CONTROL? NO . GENITOURINARY: ANY NEW CHANGE IN BLADDER CONTROL? NO . IS THERE A CHANCE YOU COULD BE ? NO . HEMATOLOGY/LYMPH: DO YOU TAKE ANY BLOOD THINNERS? (FOR EXAMPLE- COUMADIN, PLAVIX, AGGRENOX, PLATEL, PRADAXA, OR XARELTO) NO . WHEN WAS YOUR LAST DOSE? DATE: TIME: . NEUROLOGY: HAVE YOU FALLEN IN THE PAST 12 MONTHS? NO . ANY NEW EXTREMITY NUMBNESS OR WEAKNESS? YES- STATES HE HAS SHOOTING PAIN DOWN LEFT ARM . CARDIOLOGY: DO YOU HAVE A PACEMAKER OR DEFIBRILLATOR? NO . RESPIRATORY: HAVE YOU BEEN SICK IN THE PAST WEEK? NO . FEVER NO . FLU LIKE SYMPTOMS? NO . COUGH NO . INTEGUMENTARY: DO YOU HAVE ANY RASHES OR OPEN SORES? NO . ALLERGIC/IMMUNO: ARE YOU ALLERGIC TO IV DYE? NO . ANY NEW ALLERGIES? NO . PSYCHIATRIC: DO YOU HAVE THOUGHTS OF HURTING YOURSELF OR SOMEONE ELSE? NO . ARE YOU ABUSED, NEGLECTED, OR IN AN UNSAFE ENVIRONMENT? NO . ENDOCRINOLOGY: ARE YOU DIABETIC? NO . OTHER: DO YOU NEED ANY PRESCRIPTIONS? NO . IF YES, PLEASE LIST: ____ . ANY NEW PROBLEMS WITH YOUR MEDICATIONS? NO . WHEN DID YOU LAST EAT? ____ . WHEN DID YOU LAST DRINK? ____ . WHAT DID YOU LAST DRINK? ____ . NAME OF PERSON DRIVING YOU HOME? ____ . DO YOU HAVE ANY OTHER QUESTIONS OR CONCERNS YES- WE DO NOT ORDER HIS MEDS, BUT STATES HE WOULD LIKE SOMETHING DIFFERENT FOR PAIN, WHAT ARE THE NEXT STEPS TO HELP WITH PAIN CONTROL, STATES HE CAN NOT SLEEP AT NIGHT . VITAL SIGNS WT 390.2 LBS, HT 68 IN, BMI 59.32 INDEX, BP 131/79 MM HG, HR 71 /MIN, RR 20 /MIN, TEMP 97.0 F, OXYGEN SAT % 98%, SAFE IN ENV? (Y/N) YES, NA INITIALS CT 09:45, REVIEWED BY: MARY. EXAMINATION GENERAL EXAMINATION: GENERALNO ACUTE DISTRESS, WELL NOURISHED AND HYDRATED. PSYCHAPPROPRIATE MOOD AND AFFECT . NECK:POINT TENDER C5-C6 C6-C7 SURROUNDING SKIN SHOWS NO ERYTHEMA, ECCHYMOSIS, INCREASED WARMTH, AND/OR SKIN ERUPTIONS NOTED. . LUNGS:CLEAR TO AUSCULTATION BILATERALLY, NO WHEEZES, RHONCHI, RALES. HEART:NO MURMURS, REGULAR RATE AND RHYTHM. MUSCULOSKELETAL:EQUAL STRENGTH OF THE UPPER EXTREMITIES BILATERALLY. PATIENT DOES ADMIT TO INCREASED PAIN IN HIS NECK WHEN ASKED TO LIFT HIS ARMS AGAINST RESISTANCE. . ASSESSMENTS CERVICAL DISC DISORDER WITH RADICULOPATHY OF CERVICAL REGION - M50.10 (PRIMARY) TREATMENT CERVICAL DISC DISORDER WITH RADICULOPATHY OF CERVICAL REGION NOTES: NANNETTE C5-C6 C6-C7 WITH CATHETER. CLINICAL NOTES: 53-YEAR-OLD MALE IN FOR POST NANNETTE FOLLOW-UP. GIVEN PRESENTING SYMPTOMS AND RESULTS OF PHYSICAL EXAMINATION RECOMMENDED REPEATING NANNETTE WITH CATHETER AND POST PROCEDURAL FOLLOW-UP. HE WAS ENCOURAGED TO DISCUSS CHANGING HIS PAIN MEDICATIONS WITH THE PROVIDER THAT IS CURRENTLY PRESCRIBING THEM. PATIENT HAS EXPRESSED UNDERSTANDING OF AND WAS IN AGREEMENT WITH TREATMENT PLAN. GIVEN TIME TO ASK QUESTIONS AND EXPRESS CONCERNS.. PREVENTIVE MEDICINE PAIN CLINIC TEACHING: PROCEDURE TEACHING CERVICAL EPIDURAL STEOID INJECTION INFOMATION PRINTED AND REVIEWED WITH PATIENT 02/23/19 3360 MARY. PROCEDURE CODES FA211 ESTABILISHED PATIENT [facility] CHARGE DISPOSITION & COMMUNICATION FOLLOW UP POSTPROCEDURE (REASON: NANNETTE C5-C6 C6-C7 WITH CATHETER) ELECTRONICALLY SIGNED BY RUSTY FLANAGAN ON 02/24/2019 AT 08:56 AM EDT DISCLAIMER : THIS IS A VISIT SUMMARY EXTRACTED FROM THE ECLINICALWORKS CHART. IT IS NOT A COPY OF THE ECL[employer]ICALWORKS PROGRESS NOTE. KVNG
== END ==
LOC: M PAIN 09:30
PROVIDERS: ATTEND Family Medicine
DX: M50.10 Cervical disc disorder with radiculopathy, unspecified cervical region (principal); K21.9 Gastro-esophageal reflux disease without esophagitis; Z86.59 Personal history of other mental and behavioral disorders; G47.33 Obstructive sleep apnea (adult) (pediatric); I10 Essential (primary) hypertension; Z87.891 Personal history of nicotine dependence; E66.01 Morbid (severe) obesity due to excess calories; Z68.43 Body mass index [BMI] 50.0-59.9, adult; Z79.899 Other long term (current) drug therapy

== ENCOUNTER → 2019-03-30 | Outpatient (CLI) | payer OTHER, MEDICAID | LOC: M PAIN 09:45 | PROVIDERS: ATTEND Anesthesiology | DX: M50.10 Cervical disc disorder with radiculopathy, unspecified cervical region (principal); Z53.8 Procedure and treatment not carried out for other reasons ==

== ENCOUNTER → 2019-05-10 | Outpatient (REF) | payer OTHER, MEDICAID | LOC: M LAB REF 12:51 | PROVIDERS: ATTEND Physician Assistant | DX: J20.9 Acute bronchitis, unspecified (principal) ==

== ENCOUNTER → 2019-05-10 | Outpatient (CLI) | payer OTHER, MEDICAID ==
--- NOTE | 2019-05-10 09:09 | REP ---
Clinical: Cough . Comparison: 09/03/2018 . Technique: PA and lateral. Findings: The mediastinum and cardiac silhouette are normal. The lung chavez are clear and without acute consolidation, effusion, or pneumothorax. The skeletal structures are intact and normal. Impression: 1. No acute cardiopulmonary process. Electronically Signed by Ameya Gonsalez MD 05/10/2019 09:01 A
== END ==
LOC: M ADAMS 08:45
PROVIDERS: ATTEND Physician Assistant
DX: J20.9 Acute bronchitis, unspecified (principal)

== ENCOUNTER → 2019-09-17 | Outpatient (REF) | payer OTHER, MEDICAID ==
[2019-09-17 16:39] LABS: BASO # 0.1 10^3/uL (0.0-0.2); BASO % 1.3 % (0.0-1.0); EOS # 0.3 10^3/uL (0.0-0.5); EOS % 3.6 % (0.0-3.0); HEMOGLOBIN 14.7 g/dl (13.5-17.5); LYMPH % 29.7 % (24.0-44.0); MEAN CORPUSCULAR HEMOGLOBIN 29.8 pg (27.0-33.0); MEAN CORPUSCULAR HGB CONC 32.7 g/dl (32.0-36.5); MEAN CORPUSCULAR VOLUME 91.1 fl (80.0-96.0); MONO # 0.5 10^3/uL (0.0-0.8); MONO % 6.9 % (0.0-5.0); NEUTROPHILS % 58.4 % (36.0-66.0); PLATELET COUNT, AUTOMATED 217 10^3/uL (150-450); RED BLOOD COUNT 4.94 10^6/uL (4.30-6.10); WHITE BLOOD COUNT 6.9 10^3/uL (4.0-10.0)
[2019-09-17 16:44] LABS: ALBUMIN 3.7 GM/DL (3.2-5.2); ALT/SGPT 41 U/L (12-78); BILIRUBIN,TOTAL 0.5 MG/DL (0.2-1.0); BLOOD UREA NITROGEN 10 MG/DL (7-18); CALCIUM LEVEL 8.9 MG/DL (8.5-10.1); CARBON DIOXIDE LEVEL 26 MEQ/L (21-32); CHLORIDE LEVEL 110 MEQ/L (98-107); CREATININE FOR GFR 0.94 MG/DL (0.70-1.30); FERRITIN 145 NG/ML (26-388); GLOMERULAR FILTRATION RATE > 60.0 (>56); GLUCOSE, FASTING 98 MG/DL (70-100); IRON (FE) 109 UG/DL (65-175); MAGNESIUM LEVEL 1.9 MG/DL (1.8-2.4); PHOSPHORUS LEVEL 2.9 MG/DL (2.5-4.9); POTASSIUM SERUM 3.8 MEQ/L (3.5-5.1); SODIUM LEVEL 142 MEQ/L (136-145); TOTAL PROTEIN 6.9 GM/DL (6.4-8.2)
[2019-09-17 16:54] LABS: TOTAL 25(OH) VITAMIN D 13.1 NG/ML (30.0-100.0); VITAMIN B12 LEVEL 1687 PG/ML (247-911)
[2019-09-17 16:55] LABS: HEMOGLOBIN A1c 5.5 %
== END ==
LOC: M LABDRWAD 16:12
PROVIDERS: ATTEND Surgery
DX: K91.2 Postsurgical malabsorption, not elsewhere classified (principal); E55.9 Vitamin D deficiency, unspecified; Z98.84 Bariatric surgery status

== ENCOUNTER → 2019-12-23 | Outpatient (CLI) | payer OTHER, MEDICAID ==
[~2019-12-23] MED LIST changes: +CARI1TAB7; +DOXY100T; +GABA-843
== END ==
LOC: M LABSMTC 10:57
PROVIDERS: ATTEND Physical Medicine & Rehabilitation
DX: Z01.818 Encounter for other preprocedural examination (principal); Z20.828 Contact with and (suspected) exposure to other viral communicable diseases; Z11.59 Encounter for screening for other viral diseases

== ENCOUNTER → 2020-03-07 | Outpatient (REF) | payer OTHER, MEDICAID ==
[2020-03-07 13:32] LABS: HEMATOCRIT 44.3 % (42.0-52.0); HEMOGLOBIN 14.5 g/dl (13.5-17.5); MEAN CORPUSCULAR HEMOGLOBIN 30.6 pg (27.0-33.0); MEAN CORPUSCULAR HGB CONC 32.7 g/dl (32.0-36.5); MEAN CORPUSCULAR VOLUME 93.5 fl (80.0-96.0); PLATELET COUNT, AUTOMATED 259 10^3/uL (150-450); RED BLOOD COUNT 4.74 10^6/uL (4.30-6.10); WHITE BLOOD COUNT 8.5 10^3/uL (4.0-10.0)
[2020-03-07 14:19] LABS: ERYTHROCYTE SEDIMENTATION RATE 8 mm/hr (0-20)
[2020-03-07 15:37] LABS: BLOOD UREA NITROGEN 12 MG/DL (7-18); C REACTIVE PROTEIN QUANTITATIV 1.02 MG/DL (0.00-0.30); CALCIUM LEVEL 9.1 MG/DL (8.5-10.1); CARBON DIOXIDE LEVEL 22 MEQ/L (21-32); CHLORIDE LEVEL 107 MEQ/L (98-107); CREATININE FOR GFR 0.82 MG/DL (0.70-1.30); GLOMERULAR FILTRATION RATE > 60.0 (>56); GLUCOSE, FASTING 88 MG/DL (70-100); POTASSIUM SERUM 4.3 MEQ/L (3.5-5.1); SODIUM LEVEL 139 MEQ/L (136-145)
== END ==
LOC: M LABDRWAD 12:47 → M LAB REF 12:47
PROVIDERS: ATTEND Physician Assistant
DX: M25.511 Pain in right shoulder (principal)

== ENCOUNTER → 2020-03-19 | Outpatient (CLI) | payer OTHER | LOC: M LABSMTC 08:31 | PROVIDERS: ATTEND Physical Medicine & Rehabilitation | DX: Z01.812 Encounter for preprocedural laboratory examination (principal); Z20.828 Contact with and (suspected) exposure to other viral communicable diseases ==

== ENCOUNTER 2020-04-01 23:45 | Emergency (ER) | payer MEDICAID, MEDICARE, OTHER ==
[~2020-04-01] VITALS: Ht 177.8 cm; Wt 143.2 kg
[~2020-04-01 23:45] MED LIST changes: -CARI1TAB7; -DOXY100T; -GABA-843
[2020-04-01 23:46] VITALS: BP 181/87
[2020-04-01] MEDS ORDERED: DOXY100T (23:54)
[2020-04-01] MEDS ORDERED: CARI1TAB7 (23:54)
[2020-04-01] MEDS ORDERED: GABA-843 (23:54)
== END 2020-04-02 00:46 | disposition home or self-care (01) ==
LOC: M ED 23:45
DX: S30.861A Insect bite (nonvenomous) of abdominal wall, initial encounter (principal); W57.XXXA Bitten or stung by nonvenomous insect and other nonvenomous arthropods, initial encounter; I10 Essential (primary) hypertension; Z79.899 Other long term (current) drug therapy

== ENCOUNTER → 2020-04-23 | Outpatient (CLI) | payer MEDICARE ==
[~2020-04-23] MED LIST changes: +CARI1TAB7; +DOXY100T; +GABA-843
--- NOTE | 2020-04-23 13:25 | ECGEPIP ---
[facility] Test Date: 2020-04-23 Pat Name: STEF PRADO Department: Room: - Gender: Male Disability Rater: FAREED : 1965 Requested By: Zac Chavez Order Number: [id number] Reading MD: Carlota Day Measurements Intervals Bowers Rate: 66 P: 64 VT: 179 QRS: -14 QRSD: 96 T: 30 QT: 396 QTc: 417 Interpretive Statements SINUS RHYTHM LEFT AXIS DEVIATION POSSIBLE LVH ST T WAVE ABN NEW C/W 09/03/18 Electronically Signed on 04-23-2020 13:24:43 EST by Carlota Day
== END ==
LOC: M EKG 08:54
PROVIDERS: ATTEND Anesthesiology
DX: Z01.812 Encounter for preprocedural laboratory examination (principal); Z20.828 Contact with and (suspected) exposure to other viral communicable diseases; I10 Essential (primary) hypertension
CPT/HCPCS: 93005; U0003

== ENCOUNTER → 2020-04-23 | Outpatient (CLI) | payer MEDICARE, OTHER | LOC: M LABSMTC 09:17 | PROVIDERS: ATTEND Anesthesiology | DX: Z01.812 Encounter for preprocedural laboratory examination (principal); Z20.828 Contact with and (suspected) exposure to other viral communicable diseases ==

== ENCOUNTER 2020-04-28 08:37 | Day surgery (SDC) | payer MEDICARE ==
[~2020-04-28] VITALS: Ht 177.8 cm; Wt 141.4 kg
[~2020-04-28 08:37] MED LIST changes: +LIDOCAINE 1% MDV 20ML VIAL SQ PRN; +LR 1,000 ML IV ONE; +MIDAZOLAM INJ 2MG/2ML VIAL (J2250 PER 1MG) IV PRN; +ceFAZolin SOD 1 GM in D5W MINI-BAG PLUS 50 ML IV ONE; +ceFAZolin SOD 2 GM in IV 1 EA IV ONE
[2020-04-28] MEDS ORDERED: propofoL 200 MG/20 ML VIAL As Ordered ONE (09:09)
[2020-04-28] MEDS ORDERED: ROCURONIUM BROMIDE 50 MG/5 ML VIAL As Ordered ONE (09:09)
[2020-04-28] MEDS ORDERED: LIDOCAINE 2% 100MG/5ML SDV (FOR ANES.) As Ordered ONE ×2 (09:09→11:46)
[2020-04-28] MEDS ORDERED: dexameTHASONE 4 MG/ML 1ML VIAL (J1100 PER 1MG) As Ordered ONE (09:10)
[2020-04-28] MEDS ORDERED: ONDANSETRON 4MG/2ML VIAL As Ordered ONE (09:10)
[2020-04-28] MEDS ORDERED: fentaNYL 100 MCG/2 ML INJECTION (J3010) As Ordered ONE ×2 (09:10→09:35)
[2020-04-28] MEDS ORDERED: SUGAMMADEX SODIUM 500 MG/5 ML VIAL (BRIDION) As Ordered ONE (09:28)
[2020-04-28] MEDS ORDERED: KETOROLAC 60MG 2ML VIAL As Ordered ONE (09:28)
[2020-04-28] MEDS ORDERED: MIDAZOLAM INJ 2MG/2ML VIAL (J2250 PER 1MG) As Ordered ONE (09:35)
[2020-04-28] MEDS ORDERED: dexameTHASONE 10MG/1ML VIAL PRES.FREE (J1100 PER 1MG) As Ordered ONE (09:42)
[2020-04-28] MEDS: fentaNYL 100 MCG/2 ML INJECTION (J3010) IV PRN ×2 (10:06→10:12)
[2020-04-28] MEDS ORDERED: ROPIvacaine 0.5% 30ML INJECTION (J2795 PER 1MG) XX ONE (10:15)
[2020-04-28] MEDS ORDERED: dexameTHASONE 10MG/1ML VIAL PRES.FREE (J1100 PER 1MG) XX ONE ×2 (10:15→11:15)
[2020-04-28] MEDS ORDERED: EPINEPHrine INJ 1 MG/ML 1ML AMP XX ONE (10:30)
[2020-04-28] MEDS ORDERED: LIDOCAINE 1% SDV 30ML VIAL As Ordered ONE (10:39)
[2020-04-28] MEDS ORDERED: EPINEPHrine 1MG/ML INJ 30ML MD-VIAL As Ordered ONE (10:39)
[2020-04-28] MEDS ORDERED: ACETAMINOPHEN 1000MG 100ML IV BTL (OFIRMEV) (J0131 PER 10MG) As Ordered ONE (12:33)
[2020-04-28] MEDS ORDERED: fentaNYL 100 MCG/2 ML INJECTION (J3010) IV PRN (14:30)
[2020-04-28] MEDS ORDERED: ONDANSETRON 4MG/2ML VIAL IV PRN (14:30)
[2020-04-28] MEDS ORDERED: LR 1,000 ML IV SCH ×2 (14:30)
[2020-04-28] MEDS ORDERED: METOCLOPRAMIDE INJ 10MG/2ML VIAL (J2765 PER 1) IV PRN (14:30)
[2020-04-28] MEDS: PERCOCET 5MG/325MG TAB PO PRN ×2 (14:45→15:19)
[2020-04-28 16:32] VITALS: BP 168/80
--- NOTE | 2020-05-01 11:10 | RO ---
DATE OF OPERATION: 04/28/2020 PREOPERATIVE DIAGNOSIS: 1. Right shoulder rotator cuff tear. 2. Right shoulder long head biceps tendonitis. 3. Right shoulder acromioclavicular (AC) joint arthritis. 4. Right shoulder impingement. POSTOPERATIVE DIAGNOSIS: 1. Right shoulder rotator cuff tear, full thickness. 2. Right shoulder long head biceps partial tear. 3. Right shoulder acromioclavicular joint arthritis. 4. Right shoulder impingement. PROCEDURE: 1. Right shoulder arthroscopic rotator cuff repair including subscapularis. 2. Right shoulder open subpectoral biceps tenodesis 3. Right shoulder arthroscopic distal clavicle excision. 4. Right shoulder arthroscopic subacromial decompression with acromioplasty. SURGEON: Sabino Reyes MD MOBILE APPLICATION ENGINEER: ORLANDO Leon ANESTHESIA: General, preoperative nerve block. IV FLUIDS: Lactated Ringers. ESTIMATED BLOOD LOSS: 10 cc. IMPLANTS: Arthrex proximal biceps button x 1. Arthrex 4.75 mm PEEK SwiveLock anchor x 5. CLOSURE: Monocryl and nylon OPERATIVE PROCEDURE: The patient was identified in the preoperative holding area. The right shoulder was marked. He had an interscalene nerve block from anesthesia. He was brought to the operating room, placed supine on a well padded OR table. General anesthesia induced. Examination under anesthesia revealed a 190 degrees forward flexion, 90 external rotation with his arm at his side, no increased anterior/posterior translation. He was then placed in the left side down lateral decubitus position with an axillary roll and all bony prominences well padded. Bilateral SCDs for deep venous thrombosis (DVT) prophylaxis. Beanbag was deflated. He was secured to the OR table and then the right arm was placed into the Arthrex Star sleeve lateral decubitus retraction with10 pounds of traction. He received 3 gm of IV cephazolin for antibiotic prophylaxis within one hour of incision. Following that, time-out per hospital protocol, the right shoulder is insufflated with lactated Ringers and standard posterior viewing portal made with an 11 blade. 30 degree arthroscope was introduced into the joint. Nicho De Oliveira was present for the entire procedure and participated in all essential portions of the procedure. This included patient positioning and draping, holding the arthroscope, retrieving sutures, assisting with placing anchors, using the mallet and awl and manipulating the arm, as well as holding retractors during the biceps tenodesis, assisting with stitching the tendon. He also performed the wound closure, applied the dressing and brace. So with the scope in the joint, there was minimal chondromalacia in the glenohumeral joint. There was partial thickness tearing of the long head of the biceps that was then attached to the superior labrum. There was a longitudinal split tear in the subscapularis. An anterior working portal was developed through the rotator interval and the meniscal bitter was used to perform a tenotomy of the biceps. The tendon stump was dbrided with the shaver. Superior labral debridement with the shaver. Soft tissue of the rotator interval was cleared out to better expose the subscapularis. There was also a full thickness tear in the supraspinatus with only minimal retraction. The supraspinatus was intact. So, I actually had a good angle with that initially portal for suture placement. No need to develop a superior lateral portal in this case. The Ring curette was used to clear soft tissue off at the lesser tuberosity to create a bleeding surface. Scorpion was used to pass FiberTape to the upper 1/3 of the subscapularis through healthier tissue and then the sutures were loaded through a 4.75 mm PEEK SwiveLock anchor. The awl was used to create a socket in the lesser tuberosity. The anchor was docked, the sutures were tension, the anchor than malleted and inserted by and with excellent fixation. This nicely restored the subscapularis. We then proceeded with an open biceps tenodesis. 3 cm incision made with the 15 blade just lateral the axilla, dissection with electrocautery and blunt finger dissection down to the deep fascia, which was carefully opened with scissors. The long head of the biceps was dissected out with the right angle clamp. Gross inspection revealed profound tendinopathy and intrasubstance tearing. The Arthrex proximal biceps kit was then opened and a running locking whipstitch was placed with the FiberLoop. Excess tendon was trimmed and discarded. Sutures loaded through the biceps button per routine. The spade tip drill bit was used to create a unicortical drill hole within the bicipital grove and bony debris removed with irrigation. The button was passed through the drill hole on the tripper and sutures were toggled, which flipped the button. Curve free needle was used to pass one limb of the suture back through the tendon; knots tied by hand to lock the construct in place and this nicely restore the resting tension of the biceps. The incision was then irrigated and the deep fascia closed with 2-0 Vicryl followed by a 2-0 Vicryl subcuticular closure and a running Monocryl. At the end of the case, Steri-Strips were placed. The arthroscope was now placed into the subacromial space where there is moderate bursitis and a large subacromial spur. Through a lateral working portal, I performed an extensive bursectomy. The CA ligament was partially released and there was a moderate subacromial spur and that was removed with a power rasp from ArthAdScoot turning it into a type 1 morphology. Attention was then turned to the distal clavicle excision where there is lwzh-wq-tito contact. Through the anterior portal, radiofrequency cautery was used to clear soft tissue out of the joint and then the bur used to remove approximately 5 to 6 mm of the distal clavicle. The scope was placed through the anterior portal to confirm adequate resection. Bony debris removed with the shaver. We then turned our attention to the supraspinatus tear, which was a crescent shape tear, full thickness, but no significant retraction. Cautery and Ring curette were used to clear soft tissue off the tuberosity and to create a bleeding surface. I then percutaneously placed two 4.75 mm PEEK SwiveLock anchors, one anterior and one further posterior. From an anterior to posterior direction, the Scorpion was used to pass the eyelet stitches first and then the tapes. The eyelet sutures from the anterior supraspinatus were then tied with a knot pusher with alternative half hitch technique to set the leading edge of the supraspinatus tension. The eyelet sutures at the mid portion of the tear from the posterior anchor were then tied again with alternating half hitch technique to set the mid portion of the tear. Appropriate medial row sutures were then brought out to anterolateral canula and loaded through a 4.75 mm PEEK SwiveLock anchor and awl used to create a socket in the lateral tuberosity. The anchor docked, sutures tensioned, screw inserted by hand with excellent fixation. Suture was cut. The same steps were repeated with the posterolateral anchor to complete the SpeedBridge repair and there were no dog ears. The shoulder was internally and externally rotated. There is no liftoff or buckling. The tendon was nicely compressed with tuberosity. The shoulder was irrigated and drained, portals closed with nylon suture. Bulky sterile dressing applied. He was carefully placed into the R2 sling. He was extubated and transferred to the PACU in stable condition. Postop Plan: Start physical therapy within two weeks. Passive range of motion only for the first 8 weeks. He can start active assistive range of motion in 8 weeks. No active range of motion until 12 weeks and he start rotator cuff strengthening in 16 weeks. MTDD
== END 2020-04-28 16:35 | disposition home or self-care (01) ==
LOC: M SDC 08:37
PROVIDERS: ATTEND Orthopaedic Surgery
DX: M75.101 Unspecified rotator cuff tear or rupture of right shoulder, not specified as traumatic (principal); M75.21 Bicipital tendinitis, right shoulder; K21.9 Gastro-esophageal reflux disease without esophagitis; I10 Essential (primary) hypertension; F41.9 Anxiety disorder, unspecified; Z98.84 Bariatric surgery status; Z79.899 Other long term (current) drug therapy
CPT/HCPCS: 23430; 29824; 29826; 29827; C1713; J0131; J0690; J1100; J1885; J2250; J2405; J3010

== ENCOUNTER → 2020-07-18 | Outpatient (CLI) | payer MEDICARE ==
[~2020-07-18] VITALS: Ht 175.3 cm; Wt 145.0 kg
[~2020-07-18] MED LIST changes: +ACETAMINOPHEN TAB 650MG DOSE (2X325MG) PO ONE; +ALBUTEROL 90 MCG/ACT 8GM HFA INHALER INH PRN; +ALBUTEROL SULFATE 2.5 MG/0.5 ML INH NEB SOLN INH PRN; +BAMLANIVIMAB 700 MG in NS 250 ML IV ONE; +EPINEPHrine INJ 1 MG/ML 1ML AMP IM PRN; +GABA-282; -GABA-843; -LIDOCAINE 1% MDV 20ML VIAL SQ PRN; +LISI10TA22 PO; -LISI10TA4 PO; -LR 1,000 ML IV ONE; -MIDAZOLAM INJ 2MG/2ML VIAL (J2250 PER 1MG) IV PRN; -ceFAZolin SOD 1 GM in D5W MINI-BAG PLUS 50 ML IV ONE; -ceFAZolin SOD 2 GM in IV 1 EA IV ONE; +diphenhydrAMINE 50MG CAP PO ONE; +diphenhydrAMINE 50MG/ML VIAL (J1200) IV PRN; +methylPREDNISolone 125MG 2ML VIAL IV PRN; +methylPREDNISolone 40MG 1ML VIAL IV ONE
[2020-07-18] MEDS: NS 1,000 ML IV SCH (15:21)
[2020-07-18 16:18] VITALS: BP 172/88
[2020-07-18 16:20] VITALS: BP 172/88
[2020-07-18 16:50] VITALS: BP 161/74
[2020-07-18 17:52] VITALS: BP 146/67
[2020-07-19] MEDS: NS 1,000 ML IV SCH (11:43)
== END ==
LOC: M OPCLI4PR 15:00
PROVIDERS: ATTEND Family Medicine
DX: U07.1 COVID-19 (principal)
CPT/HCPCS: 96375; J2920; M0239

== ENCOUNTER → 2020-10-26 | Outpatient (CLI) | payer MEDICARE, MEDICAID ==
[~2020-10-26] MED LIST changes: -ACETAMINOPHEN TAB 650MG DOSE (2X325MG) PO ONE; -ALBUTEROL 90 MCG/ACT 8GM HFA INHALER INH PRN; -ALBUTEROL SULFATE 2.5 MG/0.5 ML INH NEB SOLN INH PRN; -BAMLANIVIMAB 700 MG in NS 250 ML IV ONE; -EPINEPHrine INJ 1 MG/ML 1ML AMP IM PRN; +GABA-283 PO; -GABA-845 PO; -SIME180C PO; +SIME180C25 PO; -diphenhydrAMINE 50MG CAP PO ONE; -diphenhydrAMINE 50MG/ML VIAL (J1200) IV PRN; -methylPREDNISolone 125MG 2ML VIAL IV PRN; -methylPREDNISolone 40MG 1ML VIAL IV ONE
--- NOTE | 2020-10-26 13:03 | REP ---
INDICATION: OTHER CERV DISC DEGENERATION, MID-CERVICAL RGN, UNSP LEVEL. COMPARISON: Comparison MRI study is from June 20, 2018.. TECHNIQUE: Sagittal and axial T1 and T2-weighted scans are acquired in the usual fashion with and without fat saturation. Sequences include spin echo, turbo spin-echo, and STIR imaging sequences. FINDINGS: There is straightening and slight reversal of the normal cervical lordosis. Cervical vertebral body heights are preserved. Cortical and medullary bone signal intensity are normal. There is mild motion artifact on the T2 weighted sagittal scans. The cervical cord is normal in course, caliber and signal intensity. Craniocervical junction is unremarkable. No extra spinal abnormality is seen. At C2-3, axial and sagittal images show no evidence of disc protrusion, central canal stenosis, or foraminal narrowing. At C3-4, there is no significant finding. At C4-5, there is mild disc space narrowing. There is mild bilateral uncovertebral spurring. No focal disc protrusion is seen. At C5-6, there is degenerative disc narrowing. Anterior and posterior osteophytic ridging is seen. There is a broad-based central focal disc protrusion effacing the ventral subarachnoid space, flattening the ventral margin of the cervical cord, and displacing the cord dorsally. This is similar to the prior study. The ventral and dorsal subarachnoid spaces are effaced at the C5-6 disc level. There is bilateral uncovertebral spurring and foraminal narrowing, left more so than right. These findings may be slightly more pronounced. At C6-7 , There is no abnormality. At C7-T1 there is a very small central focal disc protrusion again noted without cord compression. This is unchanged. IMPRESSION: There is a broad-based central disc protrusion at C5-6 with thecal sac compression and flattening of the ventral margin of the cord. This is slightly more pronounced than on the prior study. There is uncovertebral spurring bilaterally left greater than right at C5-6. Mild bilateral uncovertebral spurring is seen at C4-5. <Electronically signed by Ernesto Blackman > 10/26/20 1300
== END ==
LOC: M RAD 11:06
PROVIDERS: ATTEND Physician Assistant
DX: M50.320 Other cervical disc degeneration, mid-cervical region, unspecified level (principal); M50.222 Other cervical disc displacement at C5-C6 level

== ENCOUNTER 2020-12-02 15:45 | Emergency (ER) | payer MEDICARE, OTHER ==
[~2020-12-02] VITALS: Ht 175.3 cm; Wt 140.9 kg
[~2020-12-02 15:45] MED LIST changes: +OMEP40CA4 PO; -OMEP40CA97 PO
[2020-12-02] MEDS ORDERED: KETOROLAC 30 MG/ML 1ML VIAL IV ONE (17:10)
[2020-12-02] MEDS ORDERED: diazePAM 5MG TABLET PO ONE (17:10)
[2020-12-02 17:20] LABS: BASO # 0.1 10^3/uL (0.0-0.2); BASO % 0.8 % (0.0-1.0); EOS # 0.2 10^3/uL (0.0-0.5); EOS % 1.9 % (0.0-3.0); HEMATOCRIT 41.7 % (42.0-52.0); HEMOGLOBIN 13.9 g/dl (13.5-17.5); LYMPH % 22.7 % (24.0-44.0); MEAN CORPUSCULAR HEMOGLOBIN 30.3 pg (27.0-33.0); MEAN CORPUSCULAR HGB CONC 33.3 g/dl (32.0-36.5); MONO # 0.7 10^3/uL (0.0-0.8); MONO % 7.5 % (2.0-8.0); NEUTROPHILS # 5.8 10^3/uL (1.5-8.5); NEUTROPHILS % 66.6 % (36.0-66.0); PLATELET COUNT, AUTOMATED 230 10^3/uL (150-450); RED BLOOD COUNT 4.58 10^6/uL (4.30-6.10); WHITE BLOOD COUNT 8.6 10^3/uL (4.0-10.0)
[2020-12-02 17:25] LABS: ALBUMIN 3.8 GM/DL (3.2-5.2); ALT/SGPT 26 U/L (12-78); BILIRUBIN,TOTAL 0.4 MG/DL (0.2-1.0); BLOOD UREA NITROGEN 20 MG/DL (7-18); CALCIUM LEVEL 8.5 MG/DL (8.5-10.1); CARBON DIOXIDE LEVEL 25 MEQ/L (21-32); CHLORIDE LEVEL 106 MEQ/L (98-107); GLOMERULAR FILTRATION RATE > 60.0 (>56); GLUCOSE, FASTING 126 MG/DL (70-100); POTASSIUM SERUM 3.6 MEQ/L (3.5-5.1); SODIUM LEVEL 139 MEQ/L (136-145); TOTAL PROTEIN 6.8 GM/DL (6.4-8.2)
[2020-12-02 18:19] VITALS: BP 142/73
== END 2020-12-02 18:50 | disposition home or self-care (01) ==
LOC: EDBD 15:45 → M ED 15:45
DX: F12.10 Cannabis abuse, uncomplicated (principal); E86.0 Dehydration; G47.33 Obstructive sleep apnea (adult) (pediatric); M54.2 Cervicalgia; M54.9 Dorsalgia, unspecified; Z79.899 Other long term (current) drug therapy
CPT/HCPCS: 36415; 80053; 85025; 96374; 99284; J1885

== ENCOUNTER 2021-09-08 09:01 | Emergency (ER) | payer MEDICARE, OTHER ==
[~2021-09-08] VITALS: Ht 175.3 cm; Wt 158.2 kg
[2021-09-08 09:38] LABS: BASO # 0.1 10^3/uL (0.0-0.2); BASO % 1.1 % (0.0-1.0); EOS # 0.2 10^3/uL (0.0-0.5); EOS % 2.6 % (0.0-3.0); HEMATOCRIT 45.5 % (42.0-52.0); HEMOGLOBIN 15.3 g/dl (13.5-17.5); LYMPH # 2.3 10^3/uL (1.5-5.0); LYMPH % 27.9 % (24.0-44.0); MEAN CORPUSCULAR HEMOGLOBIN 30.4 pg (27.0-33.0); MEAN CORPUSCULAR HGB CONC 33.6 g/dl (32.0-36.5); MEAN CORPUSCULAR VOLUME 90.5 fl (80.0-96.0); MONO # 0.8 10^3/uL (0.0-0.8); MONO % 9.2 % (2.0-8.0); NEUTROPHILS # 4.9 10^3/uL (1.5-8.5); NEUTROPHILS % 58.6 % (36.0-66.0); PLATELET COUNT, AUTOMATED 324 10^3/uL (150-450); RED BLOOD COUNT 5.03 10^6/uL (4.30-6.10); WHITE BLOOD COUNT 8.4 10^3/uL (4.0-10.0)
[2021-09-08] MEDS ORDERED: HYDR-3713 (09:59)
[2021-09-08] MEDS ORDERED: BACL10TA2 (09:59)
[2021-09-08 10:01] LABS: CK-MB VALUE MASS < 1.0 NG/ML (<3.6); CPK CREATINE PHOSPHOKINASE 89 U/L (39-308); MB/CK RELATIVE INDEX 1.12 (< OR =4)
[2021-09-08 10:07] LABS: BLOOD UREA NITROGEN 11 MG/DL (7-18); CALCIUM LEVEL 8.9 MG/DL (8.5-10.1); CARBON DIOXIDE LEVEL 27 MEQ/L (21-32); CHLORIDE LEVEL 109 MEQ/L (98-107); CREATININE FOR GFR 1.01 MG/DL (0.70-1.30); GLOMERULAR FILTRATION RATE > 60.0 (>56); GLUCOSE, FASTING 79 MG/DL (70-100); POTASSIUM SERUM 4.4 MEQ/L (3.5-5.1); SODIUM LEVEL 141 MEQ/L (136-145)
[2021-09-08] MEDS ORDERED: ASPIRIN 81 MG CHEW TABLET PO ONE (10:10)
[2021-09-08] MEDS: METOPROLOL 5 MG/5 ML VIAL IV SCH ×3 (10:29→10:44)
[2021-09-08] MEDS ORDERED: NORCO, ANEXSIA 5/325MG TABLET (HYDROcodone/ACETAMINOPHEN) PO ONE (10:55)
[2021-09-08] MEDS ORDERED: METOPROLOL TART 25 MG TABLET PO ONE (11:00)
[2021-09-08 11:07] VITALS: BP 155/86
[2021-09-08] MEDS ORDERED: ISOVUE-370 76% 100ML VIAL As Ordered ONE (11:08)
[2021-09-08 11:13] LABS: CK-MB VALUE MASS < 1.0 NG/ML (<3.6); CPK CREATINE PHOSPHOKINASE 219 U/L (39-308); MB/CK RELATIVE INDEX 0.46 (< OR =4)
[2021-09-08 11:49] VITALS: BP 150/94
[2021-09-08 12:58] LABS: CK-MB VALUE MASS 1.1 NG/ML (<3.6); MB/CK RELATIVE INDEX 1.34 (< OR =4)
[2021-09-08] MEDS ORDERED: ASPI81CH33 PO (13:24)
[2021-09-08] MEDS ORDERED: ATEN50TA2 PO (13:24)
== END 2021-09-08 13:35 | disposition home or self-care (01) ==
LOC: M ED 09:01
DX: I48.91 Unspecified atrial fibrillation (principal); K21.9 Gastro-esophageal reflux disease without esophagitis; G47.33 Obstructive sleep apnea (adult) (pediatric); F41.9 Anxiety disorder, unspecified; F32.9 Major depressive disorder, single episode, unspecified; Z98.84 Bariatric surgery status; Z79.899 Other long term (current) drug therapy
CPT/HCPCS: 71045; 71275; 80048; 82550; 82553; 84443; 84484; 85025; 87798; 93005; 93041; 94760; 96374; 96376; 99285; Q9967

== ENCOUNTER 2021-12-03 09:48 | Emergency (ER) | payer MEDICARE, OTHER ==
[~2021-12-03] VITALS: Ht 177.8 cm; Wt 154.6 kg
[2021-12-03 09:48] VITALS: BP 170/86
[~2021-12-03 09:48] MED LIST changes: +ASPI81CH33 PO; +ATEN50TA2 PO; +BACL10TA2; +HYDR-3713
[2021-12-03] MEDS ORDERED: PREG25CA2 (09:58)
[2021-12-03] MEDS ORDERED: ACET300T52 (09:58)
[2021-12-03] MEDS ORDERED: KETOROLAC 30 MG/ML 1ML VIAL IV ONE (13:00)
[2021-12-03] MEDS ORDERED: ACETAMINOPHEN 500 MG TAB PO ONE (13:00)
[2021-12-03 13:49] LABS: BASO # 0.1 10^3/uL (0.0-0.2); BASO % 0.7 % (0.0-1.0); EOS # 0.2 10^3/uL (0.0-0.5); EOS % 2.6 % (0.0-3.0); HEMATOCRIT 44.5 % (42.0-52.0); HEMOGLOBIN 14.6 g/dl (13.5-17.5); LYMPH # 2.1 10^3/uL (1.5-5.0); LYMPH % 28.3 % (24.0-44.0); MEAN CORPUSCULAR HEMOGLOBIN 30.7 pg (27.0-33.0); MEAN CORPUSCULAR HGB CONC 32.8 g/dl (32.0-36.5); MEAN CORPUSCULAR VOLUME 93.7 fl (80.0-96.0); MONO # 0.5 10^3/uL (0.0-0.8); MONO % 6.7 % (2.0-8.0); NEUTROPHILS # 4.5 10^3/uL (1.5-8.5); NEUTROPHILS % 61.4 % (36.0-66.0); PLATELET COUNT, AUTOMATED 218 10^3/uL (150-450); RED BLOOD COUNT 4.75 10^6/uL (4.30-6.10); WHITE BLOOD COUNT 7.3 10^3/uL (4.0-10.0)
[2021-12-03] MEDS ORDERED: MORPHINE 4 MG/ML 1ML VIAL/SYRINGE IV PRN (14:40)
[2021-12-03] MEDS ORDERED: ONDANSETRON 4MG/2ML VIAL IV ONE (14:40)
[2021-12-03 15:24] LABS: RSV AMPLIFICATION NEGATIVE (NEGATIVE)
[2021-12-03] MEDS ORDERED: HYDROMORPHONE HCL 0.5 MG/ 0.5 ML SYRINGE (J1170 PER 1) IV PRN (16:00)
[2021-12-03] MEDS ORDERED: NORCO 5/325MG TABLET (HOME DOSE PACK) PO ONE (16:05)
== END 2021-12-03 17:13 | disposition left against medical advice (07) ==
LOC: M ED 09:48
DX: G83.4 Cauda equina syndrome (principal); Z53.9 Procedure and treatment not carried out, unspecified reason; I10 Essential (primary) hypertension; K21.9 Gastro-esophageal reflux disease without esophagitis; G47.30 Sleep apnea, unspecified; Z79.899 Other long term (current) drug therapy
CPT/HCPCS: 72110; 80047; 85025; 87631; 96374; 96375; 99283; J1170; J1885; J2270; J2405

== ENCOUNTER → 2021-12-07 | Outpatient (CLI) | payer MEDICARE ==
[~2021-12-07] MED LIST changes: +ACET300T52; +MEDR4PAK PO; +PREG25CA2 PO
== END ==
LOC: M PLAIMG 14:44
PROVIDERS: ATTEND Physician Assistant
DX: G83.4 Cauda equina syndrome (principal); M51.26 Other intervertebral disc displacement, lumbar region; M47.816 Spondylosis without myelopathy or radiculopathy, lumbar region

== ENCOUNTER 2021-12-09 04:43 | Emergency (ER) | payer MEDICARE ==
[~2021-12-09] VITALS: Ht 177.8 cm; Wt 155.0 kg
[~2021-12-09 04:43] MED LIST changes: -MEDR4PAK PO
[2021-12-09] MEDS ORDERED: HYDR-3713 PO ×2 (05:46→10:53)
[2021-12-09] MEDS ORDERED: KETOROLAC 30 MG/ML 1ML VIAL IV ONE (07:05)
[2021-12-09] MEDS ORDERED: atenoloL 50 MG TAB PO ONE (07:05)
[2021-12-09 07:46] LABS: BASO # 0.1 10^3/uL (0.0-0.2); EOS # 0.2 10^3/uL (0.0-0.5); EOS % 2.5 % (0.0-3.0); HEMATOCRIT 45.9 % (42.0-52.0); HEMOGLOBIN 15.4 g/dl (13.5-17.5); LYMPH # 1.7 10^3/uL (1.5-5.0); LYMPH % 22.8 % (24.0-44.0); MEAN CORPUSCULAR HGB CONC 33.6 g/dl (32.0-36.5); MEAN CORPUSCULAR VOLUME 92.4 fl (80.0-96.0); MONO # 0.5 10^3/uL (0.0-0.8); MONO % 7.4 % (2.0-8.0); NEUTROPHILS # 4.8 10^3/uL (1.5-8.5); NEUTROPHILS % 65.9 % (36.0-66.0); PLATELET COUNT, AUTOMATED 243 10^3/uL (150-450); RED BLOOD COUNT 4.97 10^6/uL (4.30-6.10); WHITE BLOOD COUNT 7.3 10^3/uL (4.0-10.0)
[2021-12-09 07:57] LABS: APPEARANCE, URINE CLEAR (CLEAR); BACTERIA, URINE AUTO NEGATIVE (NEGATIVE); BILIRUBIN, URINE AUTO NEGATIVE (NEGATIVE); BLOOD, URINE BLOOD NEGATIVE (NEGATIVE); COLOR, URINE YELLOW (YELLOW); GLUCOSE, URINE (UA) AUTO NEGATIVE (NEGATIVE); KETONE, URINE AUTO NEGATIVE (NEGATIVE); LEUKOCYTE ESTERASE, URINE AUTO NEGATIVE (NEGATIVE); MUCUS, URINE SMALL (NEGATIVE); NITRITE, URINE AUTO NEGATIVE (NEGATIVE); PROTEIN, URINE AUTO NEGATIVE (NEGATIVE); RBC, URINE AUTO 0 /HPF (0-3); SPECIFIC GRAVITY URINE AUTO 1.013 (1.002-1.035); SQUAMOUS EPITHELIAL CELL UR AU 0 /HPF (0-6); WBC, URINE AUTO 1 /HPF (0-3)
[2021-12-09] MEDS ORDERED: MORPHINE 4 MG/ML 1ML VIAL/SYRINGE IV ONE (08:05)
[2021-12-09] MEDS ORDERED: BACLOFEN 10 MG TAB PO ONE (09:45)
[2021-12-09] MEDS ORDERED: LIDOCAINE 5% (LIDODERM) PATCH TD ONE (09:45)
[2021-12-09] MEDS ORDERED: MEDR4PAK PO (10:53)
[2021-12-09 11:04] VITALS: BP 173/82
[2021-12-09] MEDS ORDERED: **NOTE PATIENT COMMENT** MISC XX ONE (22:00)
== END 2021-12-09 11:10 | disposition home or self-care (01) ==
LOC: M ED 04:43
DX: M54.42 Lumbago with sciatica, left side (principal); Z79.82 Long term (current) use of aspirin; Z79.899 Other long term (current) drug therapy
CPT/HCPCS: 74176; 80047; 81001; 85025; 96374; 96375; 99284; J1885; J2270

== ENCOUNTER → 2022-01-24 | Outpatient (CLI) | payer MEDICARE ==
[~2022-01-24] MED LIST changes: +MEDR4PAK PO
[2022-01-24 17:27] LABS: PLATELET COUNT, AUTOMATED 257 10^3/uL (150-450)
[2022-01-24 17:38] LABS: INR 0.93; PROTHROMBIN TIME 12.9 SECONDS (12.7-14.5)
[2022-01-24 17:39] LABS: PARTIAL THROMBOPLASTIN TIME 27.5 SECONDS (25.9-37.0)
== END ==
LOC: M ADAMS 14:47
PROVIDERS: ATTEND Physician Assistant
DX: M48.062 Spinal stenosis, lumbar region with neurogenic claudication (principal)

== ENCOUNTER → 2022-02-22 | Outpatient (CLI) | payer MEDICARE | LOC: M RAD 10:35 | PROVIDERS: ATTEND Physician Assistant | DX: R51.9 Headache, unspecified (principal); I65.23 Occlusion and stenosis of bilateral carotid arteries ==

== ENCOUNTER → 2022-07-09 | Outpatient (REF) | payer MEDICARE ==
[2022-07-09 13:44] LABS: ALBUMIN 3.6 G/DL (3.2-5.2); ALKALINE PHOSPHATASE 115 U/L (46-116); ALT/SGPT 26 U/L (7.0-40); AST/SGOT 18 U/L (<34); BILIRUBIN,TOTAL 0.4 MG/DL (0.3-1.2); BLOOD UREA NITROGEN 15 MG/DL (9-23); CALCIUM LEVEL 9.1 MG/DL (8.5-10.1); CARBON DIOXIDE LEVEL 30 MMOL/L (20-31); CHLORIDE LEVEL 104 MMOL/L (98-107); CHOLESTEROL LEVEL 145 MG/DL (<200); CHOLESTEROL RISK RATIO 1.84 (<5); CREATININE FOR GFR 0.82 MG/DL (0.70-1.30); GLOMERULAR FILTRATION RATE > 60.0 (>56); GLUCOSE, FASTING 77 MG/DL (60-100); HDL CHOLESTEROL 78.8 MG/DL (>40); LDL CHOLESTEROL 38.6 MG/DL (<100); NON-HDL-C 66 MG/DL; POTASSIUM SERUM 4.3 MMOL/L (3.5-5.1); SODIUM LEVEL 141 MMOL/L (136-145); TOTAL PROTEIN 6.7 G/DL (5.7-8.2); TRIGLYCERIDES LEVEL 138 MG/DL (<150)
[2022-07-09 13:48] LABS: FERRITIN 68.4 NG/ML (10.5-307.3); FREE T4 1.26 NG/DL (0.89-1.76); THYROID STIMULATING HORMONE 2.285 uIU/ML (0.55-4.78)
[2022-07-09 13:54] LABS: VITAMIN B12 LEVEL 360 PG/ML (211-911)
[2022-07-09 13:55] LABS: BASO # 0.1 10^3/uL (0.0-0.2); BASO % 0.9 % (0.0-1.0); EOS # 0.3 10^3/uL (0.0-0.5); EOS % 2.8 % (0.0-3.0); HEMATOCRIT 45.1 % (42.0-52.0); HEMOGLOBIN 14.3 g/dl (13.5-17.5); LYMPH # 2.5 10^3/uL (1.5-5.0); LYMPH % 26.2 % (24.0-44.0); MEAN CORPUSCULAR HEMOGLOBIN 29.6 pg (27.0-33.0); MEAN CORPUSCULAR HGB CONC 31.7 g/dl (32.0-36.5); MEAN CORPUSCULAR VOLUME 93.4 fl (80.0-96.0); MONO # 0.7 10^3/uL (0.0-0.8); MONO % 6.8 % (2.0-8.0); NEUTROPHILS % 62.5 % (36.0-66.0); PLATELET COUNT, AUTOMATED 279 10^3/uL (150-450); RED BLOOD COUNT 4.83 10^6/uL (4.30-6.10); WHITE BLOOD COUNT 9.6 10^3/uL (4.0-10.0)
[2022-07-09 13:57] LABS: FOLATE 15.7 NG/ML (>5.4)
[2022-07-09 15:23] LABS: HEMOGLOBIN A1c 4.8 % (4.0-6.0)
== END ==
LOC: M SFHCADAM 09:43
PROVIDERS: ATTEND Physician Assistant
DX: Z68.43 Body mass index [BMI] 50.0-59.9, adult (principal); E66.01 Morbid (severe) obesity due to excess calories; I10 Essential (primary) hypertension; Z98.84 Bariatric surgery status; I48.91 Unspecified atrial fibrillation; G47.33 Obstructive sleep apnea (adult) (pediatric); D17.23 Benign lipomatous neoplasm of skin and subcutaneous tissue of right leg; Z79.899 Other long term (current) drug therapy; Z12.5 Encounter for screening for malignant neoplasm of prostate
CPT/HCPCS: 80053; 80061; 82607; 82728; 82746; 83036; 84439; 84443; 85025; G0103

== ENCOUNTER → 2022-08-13 | Outpatient (REF) | payer MEDICARE | LOC: M LAB REF 17:12 | PROVIDERS: ATTEND Surgery | DX: D48.5 Neoplasm of uncertain behavior of skin (principal) ==

== ENCOUNTER 2022-08-17 11:57 | Emergency (ER) | payer MEDICARE, OTHER ==
[~2022-08-17] VITALS: Ht 175.3 cm; Wt 159.4 kg
[2022-08-17 14:35] VITALS: BP 153/84
== END 2022-08-17 14:51 | disposition home or self-care (01) ==
LOC: M ED 11:57 → EDBD 11:57 → M ED 14:51
DX: S70.00XA Contusion of unspecified hip, initial encounter (principal); T81.31XA Disruption of external operation (surgical) wound, not elsewhere classified, initial encounter; W19.XXXA Unspecified fall, initial encounter; M54.9 Dorsalgia, unspecified; I10 Essential (primary) hypertension; I48.91 Unspecified atrial fibrillation; F41.9 Anxiety disorder, unspecified; K31.9 Disease of stomach and duodenum, unspecified; Z79.899 Other long term (current) drug therapy

== ENCOUNTER 2023-03-15 14:47 | Emergency (ER) | payer MEDICARE, OTHER ==
[~2023-03-15] VITALS: Ht 177.8 cm; Wt 146.4 kg
[~2023-03-15 14:47] MED LIST changes: -GABA-283 PO; +GABA-284 PO; -PREG25CA2 PO; +PREG25CA3 PO
[2023-03-15] MEDS ORDERED: SEMA0.257 (16:16)
[2023-03-15 16:19] LABS: BASO # 0.1 10^3/uL (0.0-0.2); BASO % 0.8 % (0.0-1.0); EOS # 0.2 10^3/uL (0.0-0.5); EOS % 2.1 % (0.0-3.0); HEMATOCRIT 41.6 % (42.0-52.0); LYMPH # 2.2 10^3/uL (1.5-5.0); LYMPH % 24.6 % (24.0-44.0); MEAN CORPUSCULAR HGB CONC 33.7 g/dl (32.0-36.5); MEAN CORPUSCULAR VOLUME 92.2 fl (80.0-96.0); MONO # 0.5 10^3/uL (0.0-0.8); MONO % 6.1 % (2.0-8.0); NEUTROPHILS # 5.9 10^3/uL (1.5-8.5); NEUTROPHILS % 66.1 % (36.0-66.0); PLATELET COUNT, AUTOMATED 234 10^3/uL (150-450); RED BLOOD COUNT 4.51 10^6/uL (4.30-6.10); WHITE BLOOD COUNT 8.9 10^3/uL (4.0-10.0)
[2023-03-15] MEDS ORDERED: ONDANSETRON 4MG 2ML VIAL IV ONE (16:40)
[2023-03-15] MEDS ORDERED: PANTOPRAZOLE 40MG VIAL IV ONE (16:40)
[2023-03-15 16:41] LABS: ALBUMIN 3.7 G/DL (3.2-5.2); BILIRUBIN,DIRECT 0.3 MG/DL (<0.4); BILIRUBIN,TOTAL 0.6 MG/DL (0.3-1.2); TOTAL PROTEIN 6.5 G/DL (5.7-8.2)
[2023-03-15] MEDS ORDERED: ISOVUE-370 76% 100ML VIAL As Ordered ONE (17:11)
[2023-03-15] MEDS ORDERED: MILKSUS3 PO (18:20)
[2023-03-15 18:24] VITALS: BP 146/88; TEMP 98.7; O2SAT 98
== END 2023-03-15 18:34 | disposition home or self-care (01) ==
LOC: M ED 14:47
DX: K59.00 Constipation, unspecified (principal); K64.9 Unspecified hemorrhoids; F10.10 Alcohol abuse, uncomplicated; Z79.82 Long term (current) use of aspirin; Z79.83 Long term (current) use of bisphosphonates; Z79.899 Other long term (current) drug therapy
CPT/HCPCS: 74177; 80047; 80076; 83690; 85025; 96374; 99284; C9113; J2405; Q9967

== ENCOUNTER → 2023-06-13 | Outpatient (REF) | payer MEDICARE ==
[~2023-06-13] MED LIST changes: +MILKSUS3 PO; +SEMA0.257
[2023-06-13 14:11] LABS: BASO # 0.1 10^3/uL (0.0-0.2); BASO % 0.9 % (0.0-1.0); EOS # 0.3 10^3/uL (0.0-0.5); EOS % 3.7 % (0.0-3.0); HEMATOCRIT 43.4 % (42.0-52.0); HEMOGLOBIN 14.1 g/dl (13.5-17.5); LYMPH # 1.9 10^3/uL (1.5-5.0); LYMPH % 22.6 % (24.0-44.0); MEAN CORPUSCULAR HEMOGLOBIN 30.1 pg (27.0-33.0); MEAN CORPUSCULAR HGB CONC 32.5 g/dl (32.0-36.5); MEAN CORPUSCULAR VOLUME 92.5 fl (80.0-96.0); MONO # 0.8 10^3/uL (0.0-0.8); MONO % 9.5 % (2.0-8.0); NEUTROPHILS # 5.1 10^3/uL (1.5-8.5); NEUTROPHILS % 62.8 % (36.0-66.0); PLATELET COUNT, AUTOMATED 234 10^3/uL (150-450); RED BLOOD COUNT 4.69 10^6/uL (4.30-6.10); WHITE BLOOD COUNT 8.2 10^3/uL (4.0-10.0)
[2023-06-13 14:40] LABS: ALBUMIN 3.6 G/DL (3.2-5.2); ALKALINE PHOSPHATASE 112 U/L (46-116); ALT/SGPT 28 U/L (7.0-40); AST/SGOT 22 U/L (<34); BILIRUBIN,TOTAL 0.3 MG/DL (0.3-1.2); BLOOD UREA NITROGEN 18 MG/DL (9-23); CALCIUM LEVEL 9.3 MG/DL (8.5-10.1); CARBON DIOXIDE LEVEL 28 MMOL/L (20-31); CHLORIDE LEVEL 108 MMOL/L (98-107); CHOLESTEROL LEVEL 152 MG/DL (<200); CHOLESTEROL RISK RATIO 2.18 (<5); CREATININE FOR GFR 0.79 MG/DL (0.70-1.30); GLOMERULAR FILTRATION RATE > 60.0 (>56); GLUCOSE, FASTING 94 MG/DL (60-100); HDL CHOLESTEROL 69.6 MG/DL (>40); LDL CHOLESTEROL 59.2 MG/DL (<100); NON-HDL-C 82.4 MG/DL; POTASSIUM SERUM 4.1 MMOL/L (3.5-5.1); PSA SCREENING 2.07 NG/ML (< 4.00); SODIUM LEVEL 140 MMOL/L (136-145); TOTAL PROTEIN 6.6 G/DL (5.7-8.2); TRIGLYCERIDES LEVEL 116 MG/DL (<150)
[2023-06-13 14:42] LABS: CREATININE, URINE 151.7 MG/DL
[2023-06-13 14:43] LABS: MAU/CREAT RATIO 2.6 MCG/MG (0.0-30.0)
[2023-06-13 14:44] LABS: FREE T4 1.27 NG/DL (0.89-1.76); THYROID STIMULATING HORMONE 1.911 uIU/ML (0.55-4.78)
== END ==
LOC: M SFHCADAM 08:42
PROVIDERS: ATTEND Physician Assistant
DX: J20.8 Acute bronchitis due to other specified organisms (principal); I48.91 Unspecified atrial fibrillation; K21.9 Gastro-esophageal reflux disease without esophagitis; I10 Essential (primary) hypertension; E66.01 Morbid (severe) obesity due to excess calories; Z12.5 Encounter for screening for malignant neoplasm of prostate; Z98.84 Bariatric surgery status; Z13.1 Encounter for screening for diabetes mellitus; Z79.899 Other long term (current) drug therapy
CPT/HCPCS: 80053; 80061; 82043; 83036; 84439; 84443; 85025; G0103

== ENCOUNTER 2023-06-16 15:18 | Emergency (ER) | payer MEDICARE ==
[~2023-06-16] VITALS: Ht 177.8 cm; Wt 70.0 kg
[2023-06-16 16:36] LABS: BASO % 0.4 % (0.0-1.0); EOS % 0.4 % (0.0-3.0); HEMATOCRIT 40.8 % (42.0-52.0); HEMOGLOBIN 13.9 g/dl (13.5-17.5); LYMPH # 2.1 10^3/uL (1.5-5.0); LYMPH % 19.6 % (24.0-44.0); MEAN CORPUSCULAR HEMOGLOBIN 30.5 pg (27.0-33.0); MEAN CORPUSCULAR HGB CONC 34.1 g/dl (32.0-36.5); MEAN CORPUSCULAR VOLUME 89.5 fl (80.0-96.0); MONO # 0.7 10^3/uL (0.0-0.8); MONO % 6.8 % (2.0-8.0); NEUTROPHILS # 7.5 10^3/uL (1.5-8.5); PLATELET COUNT, AUTOMATED 300 10^3/uL (150-450); RED BLOOD COUNT 4.56 10^6/uL (4.30-6.10); WHITE BLOOD COUNT 10.4 10^3/uL (4.0-10.0)
[2023-06-16 17:04] LABS: ALBUMIN 3.7 G/DL (3.2-5.2); ALKALINE PHOSPHATASE 109 U/L (46-116); ALT/SGPT 31 U/L (7.0-40); AST/SGOT 17 U/L (<34); BILIRUBIN,DIRECT < 0.1 MG/DL (<0.4); BILIRUBIN,TOTAL 0.3 MG/DL (0.3-1.2); BLOOD UREA NITROGEN 20 MG/DL (9-23); CALCIUM LEVEL 9.1 MG/DL (8.5-10.1); CARBON DIOXIDE LEVEL 25 MMOL/L (20-31); CHLORIDE LEVEL 109 MMOL/L (98-107); CREATININE FOR GFR 0.72 MG/DL (0.70-1.30); GLOMERULAR FILTRATION RATE > 60.0 (>56); GLUCOSE, FASTING 97 MG/DL (60-100); POTASSIUM SERUM 4.2 MMOL/L (3.5-5.1); SODIUM LEVEL 140 MMOL/L (136-145); TOTAL PROTEIN 6.6 G/DL (5.7-8.2)
[2023-06-16 17:07] LABS: THYROID STIMULATING HORMONE 0.859 uIU/ML (0.55-4.78); THYROXINE (T4) 7.6 UG/DL (4.5-10.9)
[2023-06-16] MEDS ORDERED: ACETAMINOPHEN 325 MG TAB PO ONE (19:45)
[2023-06-16] MEDS ORDERED: ISOVUE-370 76% 100ML VIAL As Ordered ONE (19:47)
[2023-06-16 20:25] LABS: INR 1.01
[2023-06-16 20:26] LABS: PARTIAL THROMBOPLASTIN TIME 23.6 SECONDS (24.8-34.2)
[2023-06-16 20:34] LABS: CK-MB VALUE MASS < 1.0 NG/ML (<3.6)
[2023-06-16 20:35] LABS: CPK CREATINE PHOSPHOKINASE 93 U/L (46-171); MB/CK RELATIVE INDEX 1.07 (< OR =4)
[2023-06-16] MEDS ORDERED: PRED20TA (20:59)
[2023-06-16] MEDS ORDERED: DOXY100C3 (20:59)
[2023-06-16] MEDS ORDERED: LevoFLOXacin IV 750 MG in IV 1 EA IV ONE (21:00)
[2023-06-16] MEDS ORDERED: IPRATROPIUM 0.5MG/ALBUTEROL 2.5MG INH SOL UD 3ML (DUONEB) NEB ONE (21:00)
[2023-06-16 23:14] VITALS: BP 175/79; TEMP 98.6; O2SAT 98
[2023-06-16] MEDS ORDERED: LEVO750T14 PO (23:24)
[2023-06-16] MEDS ORDERED: COMBAER6 INH (23:24)
[2023-06-16] MEDS ORDERED: PRED20TA PO (23:24)
[2023-06-16 23:47] VITALS: O2SAT 96
== END 2023-06-16 23:50 | disposition home or self-care (01) ==
LOC: M ED 15:18
DX: J20.9 Acute bronchitis, unspecified (principal); I10 Essential (primary) hypertension; K21.9 Gastro-esophageal reflux disease without esophagitis; M54.50 Low back pain, unspecified; G47.33 Obstructive sleep apnea (adult) (pediatric); F10.10 Alcohol abuse, uncomplicated; Z86.79 Personal history of other diseases of the circulatory system; Z79.82 Long term (current) use of aspirin; Z79.52 Long term (current) use of systemic steroids; Z79.899 Other long term (current) drug therapy
CPT/HCPCS: 71046; 71275; 80048; 80076; 82550; 82553; 83605; 83880; 84436; 84443; 84484; 85025; 85610; 85730; 87040; 87486; 87581; 87633; 87798; 93005; 94640; 96365; 96366; 99284; J1956; Q9967

== ENCOUNTER 2023-09-04 08:39 | Day surgery (SDC) | payer MEDICARE ==
[~2023-09-04] VITALS: Ht 177.8 cm; Wt 156.3 kg
[~2023-09-04 08:39] MED LIST changes: +ALBU8.5H INH; +ATEN25TA PO; +B-122500 PO; -BACL10TA2; +BACL10TA2 PO; +COMBAER6 INH; +DOXY100C3; +LEVO750T14 PO; +PRED20TA; +PRED20TA PO; +THERTAB52 PO
[2023-09-04] MEDS ORDERED: fentaNYL 100 MCG/2 ML INJECTION As Ordered ONE (09:24)
[2023-09-04] MEDS ORDERED: propofoL 500 MG/50 ML VIAL As Ordered ONE (09:25)
[2023-09-04] MEDS ORDERED: GLYCOPYRROLATE INJ 0.2 MG/ML 2 ML VIAL As Ordered ONE (09:26)
[2023-09-04] MEDS: NS 1,000 ML IV ONE (09:26)
[2023-09-04 11:38] VITALS: BP 123/71; TEMP 97.3; O2SAT 95
== END 2023-09-04 11:37 | disposition home or self-care (01) ==
LOC: M OPP 08:39
PROVIDERS: ATTEND Internal Medicine Gastroenterology
DX: K64.8 Other hemorrhoids (principal); R19.4 Change in bowel habit; K92.1 Melena; Z98.0 Intestinal bypass and anastomosis status; R10.13 Epigastric pain; I48.91 Unspecified atrial fibrillation; G47.30 Sleep apnea, unspecified; Z99.89 Dependence on other enabling machines and devices; Z79.1 Long term (current) use of non-steroidal anti-inflammatories (NSAID); Z79.51 Long term (current) use of inhaled steroids; Z79.82 Long term (current) use of aspirin; Z79.899 Other long term (current) drug therapy; Z87.891 Personal history of nicotine dependence
CPT/HCPCS: 43235; 45378; J3010

== ENCOUNTER 2024-01-05 12:39 | Emergency (ER) | payer MEDICARE, OTHER ==
[~2024-01-05] VITALS: Ht 175.3 cm; Wt 159.6 kg
[2024-01-05 14:16] LABS: BASO # 0.1 10^3/uL (0.0-0.2); BASO % 0.9 % (0.0-1.0); EOS # 0.2 10^3/uL (0.0-0.5); EOS % 2.4 % (0.0-3.0); HEMATOCRIT 39.6 % (42.0-52.0); HEMOGLOBIN 13.4 g/dl (13.5-17.5); LYMPH # 2.1 10^3/uL (1.5-5.0); LYMPH % 25.7 % (24.0-44.0); MEAN CORPUSCULAR HEMOGLOBIN 30.9 pg (27.0-33.0); MEAN CORPUSCULAR HGB CONC 33.8 g/dl (32.0-36.5); MEAN CORPUSCULAR VOLUME 91.5 fl (80.0-96.0); MONO # 0.6 10^3/uL (0.0-0.8); MONO % 7.5 % (2.0-8.0); NEUTROPHILS # 5.2 10^3/uL (1.5-8.5); NEUTROPHILS % 63.3 % (36.0-66.0); PLATELET COUNT, AUTOMATED 220 10^3/uL (150-450); RED BLOOD COUNT 4.33 10^6/uL (4.30-6.10); WHITE BLOOD COUNT 8.2 10^3/uL (4.0-10.0)
[2024-01-05 14:31] LABS: LIPASE 38 U/L (12-53)
[2024-01-05 14:32] LABS: CK-MB VALUE MASS < 1.0 NG/ML (<3.6)
[2024-01-05 14:33] LABS: ALBUMIN 3.6 G/DL (3.2-5.2); ALKALINE PHOSPHATASE 108 U/L (46-116); ALT/SGPT 24 U/L (7.0-40); AST/SGOT 17 U/L (<34); BILIRUBIN,DIRECT 0.1 MG/DL (<0.4); BILIRUBIN,TOTAL 0.4 MG/DL (0.3-1.2); BLOOD UREA NITROGEN 17 MG/DL (9-23); CALCIUM LEVEL 8.8 MG/DL (8.3-10.6); CARBON DIOXIDE LEVEL 23 MMOL/L (20-31); CHLORIDE LEVEL 110 MMOL/L (98-107); CREATININE FOR GFR 0.77 MG/DL (0.70-1.30); GLOMERULAR FILTRATION RATE > 60.0 (>49); GLUCOSE, FASTING 99 MG/DL (74-106); POTASSIUM SERUM 4.2 MMOL/L (3.5-5.1); SODIUM LEVEL 140 MMOL/L (136-145); TOTAL PROTEIN 6.3 G/DL (5.7-8.2)
[2024-01-05 14:39] LABS: CPK CREATINE PHOSPHOKINASE 89 U/L (46-171); MB/CK RELATIVE INDEX 1.12 (< OR =4)
[2024-01-05] MEDS ORDERED: ISOVUE-370 76% 100ML VIAL As Ordered ONE (15:11)
[2024-01-05] MEDS: ACETAMINOPHEN 500 MG TAB PO ONE (16:08)
[2024-01-05] MEDS: KETOROLAC 30 MG/ML 1ML VIAL IV ONE (16:08)
[2024-01-05] MEDS: NS 500 ML IV ONE (16:09)
[2024-01-05 16:12] VITALS: BP 122/91; TEMP 99.1; O2SAT 98
== END 2024-01-05 16:54 | disposition home or self-care (01) ==
LOC: M ED 12:39
DX: R07.89 Other chest pain (principal); R51.9 Headache, unspecified; I48.91 Unspecified atrial fibrillation; I11.0 Hypertensive heart disease with heart failure; E78.5 Hyperlipidemia, unspecified; K21.9 Gastro-esophageal reflux disease without esophagitis; G47.33 Obstructive sleep apnea (adult) (pediatric); Z86.718 Personal history of other venous thrombosis and embolism; Z87.19 Personal history of other diseases of the digestive system; Z79.899 Other long term (current) drug therapy
CPT/HCPCS: 70450; 71046; 71275; 80048; 80076; 82550; 82553; 83690; 83880; 84484; 85025; 93005; 93041; 94760; 96361; 96374; 99284; J1885; Q9967

== ENCOUNTER → 2024-01-14 | Outpatient (REF) | payer MEDICARE ==
[2024-01-14 19:16] LABS: FERRITIN 65.6 NG/ML (10.5-307.3)
[2024-01-14 19:17] LABS: FOLATE 14.5 NG/ML (>5.4); FREE T4 1.34 NG/DL (0.89-1.76); THYROID STIMULATING HORMONE 1.693 uIU/ML (0.55-4.78); TOTAL 25(OH) VITAMIN D 40.1 NG/ML (20.0-100.0)
== END ==
LOC: M SFHCADAM 13:48
PROVIDERS: ATTEND Physician Assistant
DX: Z98.84 Bariatric surgery status (principal); Z68.43 Body mass index [BMI] 50.0-59.9, adult; I48.91 Unspecified atrial fibrillation; G47.33 Obstructive sleep apnea (adult) (pediatric); G56.90 Unspecified mononeuropathy of unspecified upper limb; D64.9 Anemia, unspecified; E55.9 Vitamin D deficiency, unspecified

== ENCOUNTER → 2024-01-30 | Outpatient (CLI) | payer MEDICARE | LOC: M PLAIMG 14:26 | PROVIDERS: ATTEND Physician Assistant | DX: R06.02 Shortness of breath (principal); I48.91 Unspecified atrial fibrillation; I36.1 Nonrheumatic tricuspid (valve) insufficiency; I37.1 Nonrheumatic pulmonary valve insufficiency ==

== ENCOUNTER → 2024-02-02 | Outpatient (CLI) | payer MEDICARE | LOC: M CARPUL 11:40 | PROVIDERS: ATTEND Physician Assistant | DX: R07.89 Other chest pain (principal) ==

== ENCOUNTER → 2024-03-06 | Outpatient (REF) | payer MEDICARE | LOC: M LAB REF 11:00 | PROVIDERS: ATTEND Physician Assistant Medical | DX: B34.9 Viral infection, unspecified (principal) ==

== ENCOUNTER → 2024-04-19 | Outpatient (REF) | payer MEDICARE ==
[~2024-04-19] MED LIST changes: +GABA-1172; -GABA-282; -LEVO750T14 PO; +LEVO75TAB PO; -SIME180C25 PO; +SIME1CAP4 PO
[2024-04-19 13:16] LABS: BASO # 0.1 10^3/uL (0.0-0.2); BASO % 0.7 % (0.0-1.0); EOS # 0.2 10^3/uL (0.0-0.5); EOS % 2.1 % (0.0-3.0); HEMATOCRIT 45.2 % (42.0-52.0); HEMOGLOBIN 14.5 g/dl (13.5-17.5); LYMPH # 1.8 10^3/uL (1.5-5.0); LYMPH % 18.5 % (24.0-44.0); MEAN CORPUSCULAR HEMOGLOBIN 30.3 pg (27.0-33.0); MEAN CORPUSCULAR HGB CONC 32.1 g/dl (32.0-36.5); MEAN CORPUSCULAR VOLUME 94.4 fl (80.0-96.0); MONO # 0.8 10^3/uL (0.0-0.8); MONO % 7.9 % (2.0-8.0); NEUTROPHILS % 70.5 % (36.0-66.0); PLATELET COUNT, AUTOMATED 255 10^3/uL (150-450); RED BLOOD COUNT 4.79 10^6/uL (4.30-6.10)
[2024-04-19 13:18] LABS: ALBUMIN 3.7 G/DL (3.2-5.2); ALKALINE PHOSPHATASE 98 U/L (40-129); ALT/SGPT 31 U/L (7.0-40); AST/SGOT 16 U/L (<34); BILIRUBIN,TOTAL 0.4 MG/DL (0.3-1.2); BLOOD UREA NITROGEN 23 MG/DL (9-23); CALCIUM LEVEL 9.4 MG/DL (8.3-10.6); CARBON DIOXIDE LEVEL 29 MMOL/L (20-31); CHLORIDE LEVEL 108 MMOL/L (98-107); CREATININE FOR GFR 0.82 MG/DL (0.70-1.30); GLOMERULAR FILTRATION RATE > 60.0 (>49); GLUCOSE, FASTING 88 MG/DL (74-106); IRON (FE) 121 UG/DL (65-175); PERCENT SATURATION 29.1 % (19.7-50.0); POTASSIUM SERUM 4.6 MMOL/L (3.5-5.1); SODIUM LEVEL 141 MMOL/L (136-145); TOTAL IRON BINDING CAPACITY 416 UG/DL (250-425); TOTAL PROTEIN 7.2 G/DL (5.7-8.2)
[2024-04-19 13:19] LABS: FERRITIN 48.8 NG/ML (10.5-307.3)
== END ==
LOC: M SFHCADAM 08:35
PROVIDERS: ATTEND Physician Assistant
DX: R10.10 Upper abdominal pain, unspecified (principal); K21.9 Gastro-esophageal reflux disease without esophagitis; Z98.84 Bariatric surgery status

== ENCOUNTER → 2024-07-08 | Outpatient (CLI) | payer MEDICARE, MEDICAID | LOC: M RAD 06:49 | PROVIDERS: ATTEND Physician Assistant | DX: R10.10 Upper abdominal pain, unspecified (principal); K76.0 Fatty (change of) liver, not elsewhere classified ==

== ENCOUNTER 2024-07-21 08:43 | Emergency (ER) | payer MEDICARE, OTHER ==
[~2024-07-21] VITALS: Ht 177.8 cm; Wt 165.9 kg
[2024-07-21] MEDS ORDERED: LOSA50TA28 PO (08:57)
[2024-07-21] MEDS ORDERED: OMEP40CA5 (08:57)
[2024-07-21] MEDS ORDERED: HYDR-3490 PO (08:57)
[2024-07-21 10:32] LABS: HEMATOCRIT 44.1 % (42.0-52.0); HEMOGLOBIN 14.5 g/dl (13.5-17.5); MEAN CORPUSCULAR HEMOGLOBIN 30.4 pg (27.0-33.0); MEAN CORPUSCULAR HGB CONC 32.9 g/dl (32.0-36.5); MEAN CORPUSCULAR VOLUME 92.5 fl (80.0-96.0); PLATELET COUNT, AUTOMATED 248 10^3/uL (150-450); RED BLOOD COUNT 4.77 10^6/uL (4.30-6.10); WHITE BLOOD COUNT 7.3 10^3/uL (4.0-10.0)
[2024-07-21 11:02] LABS: BLOOD UREA NITROGEN 18 MG/DL (9-23); CALCIUM LEVEL 8.8 MG/DL (8.3-10.6); CARBON DIOXIDE LEVEL 26 MMOL/L (20-31); CHLORIDE LEVEL 108 MMOL/L (98-107); CREATININE FOR GFR 0.68 MG/DL (0.70-1.30); GLOMERULAR FILTRATION RATE > 60.0 (>49); GLUCOSE, FASTING 97 MG/DL (74-106); SODIUM LEVEL 142 MMOL/L (136-145)
[2024-07-21] MEDS: ACETAMINOPHEN 325 MG TAB PO ONE (11:57)
[2024-07-21] MEDS ORDERED: ASPI81CH33 PO (12:02)
[2024-07-21] MEDS ORDERED: HOME MED LIST COMPLETE! XX SCH (12:05)
[2024-07-21 14:31] VITALS: BP 149/65
[2024-07-21 14:36] VITALS: O2SAT 96
[2024-07-21 14:53] VITALS: TEMP 97.9
== END 2024-07-21 14:55 | disposition home or self-care (01) ==
LOC: M ED 08:43
DX: M54.12 Radiculopathy, cervical region (principal); I10 Essential (primary) hypertension; F41.9 Anxiety disorder, unspecified; G47.33 Obstructive sleep apnea (adult) (pediatric); E66.9 Obesity, unspecified; Z86.79 Personal history of other diseases of the circulatory system; Z98.84 Bariatric surgery status; Z87.891 Personal history of nicotine dependence; Z79.82 Long term (current) use of aspirin; Z79.899 Other long term (current) drug therapy

== ENCOUNTER → 2024-09-23 | Outpatient (REF) | payer MEDICARE ==
[~2024-09-23] MED LIST changes: +CARI-555; -CARI1TAB7; +HYDR-3490 PO; +LOSA50TA28 PO; +OMEP40CA5
[2024-09-23 15:06] LABS: BASO # 0.1 10^3/uL (0.0-0.2); BASO % 1.1 % (0.0-1.0); EOS # 0.3 10^3/uL (0.0-0.5); EOS % 3.1 % (0.0-3.0); HEMATOCRIT 42.6 % (42.0-52.0); HEMOGLOBIN 13.8 g/dl (13.5-17.5); LYMPH # 2.3 10^3/uL (1.5-5.0); LYMPH % 28.3 % (24.0-44.0); MEAN CORPUSCULAR HEMOGLOBIN 30.9 pg (27.0-33.0); MEAN CORPUSCULAR HGB CONC 32.4 g/dl (32.0-36.5); MEAN CORPUSCULAR VOLUME 95.3 fl (80.0-96.0); MONO # 0.6 10^3/uL (0.0-0.8); MONO % 7.7 % (2.0-8.0); NEUTROPHILS # 4.9 10^3/uL (1.5-8.5); NEUTROPHILS % 59.6 % (36.0-66.0); PLATELET COUNT, AUTOMATED 248 10^3/uL (150-450); RED BLOOD COUNT 4.47 10^6/uL (4.30-6.10); WHITE BLOOD COUNT 8.2 10^3/uL (4.0-10.0)
[2024-09-23 15:40] LABS: PSA SCREENING 1.23 NG/ML (< 4.00)
[2024-09-23 15:49] LABS: VITAMIN B12 LEVEL 428 PG/ML (211-911)
[2024-09-23 16:48] LABS: FOLATE > 24.0 NG/ML (>5.4)
[2024-09-23 17:44] LABS: ALBUMIN 3.5 G/DL (3.2-5.2); ALKALINE PHOSPHATASE 89 U/L (40-129); ALT/SGPT 28 U/L (7.0-40); AST/SGOT 19 U/L (<34); BILIRUBIN,TOTAL 0.4 MG/DL (0.3-1.2); BLOOD UREA NITROGEN 15 MG/DL (9-23); CALCIUM LEVEL 9.3 MG/DL (8.3-10.6); CARBON DIOXIDE LEVEL 27 MMOL/L (20-31); CHLORIDE LEVEL 105 MMOL/L (98-107); CHOLESTEROL LEVEL 136 MG/DL (<200); GLOMERULAR FILTRATION RATE > 90.0 (>49); GLUCOSE, FASTING 91 MG/DL (74-106); HDL CHOLESTEROL 64.6 MG/DL (>40); LDL CHOLESTEROL 45.6 MG/DL (<100); NON-HDL-C 71.4 MG/DL; POTASSIUM SERUM 4.4 MMOL/L (3.5-5.1); SODIUM LEVEL 140 MMOL/L (136-145); TOTAL PROTEIN 6.5 G/DL (5.7-8.2); TRIGLYCERIDES LEVEL 129 MG/DL (<150)
== END ==
LOC: M SFHCADAM 09:22
PROVIDERS: ATTEND Physician Assistant
DX: I10 Essential (primary) hypertension (principal); Z68.43 Body mass index [BMI] 50.0-59.9, adult; I48.91 Unspecified atrial fibrillation; I87.2 Venous insufficiency (chronic) (peripheral); Z98.84 Bariatric surgery status; Z12.5 Encounter for screening for malignant neoplasm of prostate; Z79.899 Other long term (current) drug therapy
CPT/HCPCS: 80053; 80061; 82607; 82728; 82746; 83036; 85025; G0103

== ENCOUNTER → 2024-09-23 | Outpatient (CLI) | payer MEDICARE | LOC: M ADAMS 09:28 | PROVIDERS: ATTEND Physician Assistant | DX: M79.671 Pain in right foot (principal); M79.672 Pain in left foot; M72.2 Plantar fascial fibromatosis ==

== ENCOUNTER 2024-09-30 10:52 | Day surgery (SDC) | payer MEDICARE, OTHER ==
[~2024-09-30] VITALS: Ht 177.8 cm; Wt 164.5 kg
[2024-09-30] MEDS ORDERED: propofoL 200 MG/20 ML VIAL As Ordered ONE (13:02)
[2024-09-30] MEDS ORDERED: LIDOCAINE 2% 100MG/5ML SDV (FOR ANES.) As Ordered ONE (13:02)
[2024-09-30] MEDS ORDERED: GLYCOPYRROLATE INJ 0.2 MG/ML 2 ML VIAL As Ordered ONE (13:02)
[2024-09-30] MEDS ORDERED: fentaNYL 100 MCG/2 ML INJECTION As Ordered ONE (13:02)
[2024-09-30 13:24] VITALS: TEMP 97.4
[2024-09-30 13:39] VITALS: BP 145/83; O2SAT 96
== END 2024-09-30 13:39 | disposition home or self-care (01) ==
LOC: M OPP 10:52
PROVIDERS: ATTEND Internal Medicine Gastroenterology
DX: R10.13 Epigastric pain (principal); Z98.84 Bariatric surgery status; G47.30 Sleep apnea, unspecified; Z79.82 Long term (current) use of aspirin; Z79.899 Other long term (current) drug therapy; I48.91 Unspecified atrial fibrillation; Z87.891 Personal history of nicotine dependence
CPT/HCPCS: 43239; 88305; J1596; J3010

== ENCOUNTER 2024-10-04 06:37 | Emergency (ER) | payer MEDICARE, MEDICAID ==
[~2024-10-04] VITALS: Ht 177.8 cm; Wt 166.0 kg
[2024-10-04 07:18] LABS: VENOUS BASE EXCESS -0.3 (-2.0-2.0); VENOUS HCO3 24.7 MMOL/L (23.0-27.0); VENOUS O2 SATURATION 93.3 % (60.0-80.0); VENOUS PARTIAL PRESSURE CO2 41.7 mmHg (38.0-50.0); VENOUS PARTIAL PRESSURE O2 69.2 mmHg (30.0-50.0); VENOUS PH 7.391 UNITS (7.330-7.430); VENOUS STANDARD HCO3 24.2 MMOL/L
[2024-10-04 07:21] LABS: BASO # 0.1 10^3/uL (0.0-0.2); BASO % 0.8 % (0.0-1.0); EOS # 0.2 10^3/uL (0.0-0.5); EOS % 2.1 % (0.0-3.0); HEMATOCRIT 41.4 % (42.0-52.0); LYMPH # 2.2 10^3/uL (1.5-5.0); MEAN CORPUSCULAR HGB CONC 33.8 g/dl (32.0-36.5); MEAN CORPUSCULAR VOLUME 91.8 fl (80.0-96.0); MONO # 0.6 10^3/uL (0.0-0.8); MONO % 7.1 % (2.0-8.0); NEUTROPHILS # 5.4 10^3/uL (1.5-8.5); NEUTROPHILS % 63.4 % (36.0-66.0); PLATELET COUNT, AUTOMATED 262 10^3/uL (150-450); RED BLOOD COUNT 4.51 10^6/uL (4.30-6.10); WHITE BLOOD COUNT 8.5 10^3/uL (4.0-10.0)
[2024-10-04 07:41] LABS: ALBUMIN 3.8 G/DL (3.2-5.2); ALKALINE PHOSPHATASE 107 U/L (40-129); ALT/SGPT 51 U/L (7.0-40); AST/SGOT 35 U/L (<34); BILIRUBIN,DIRECT 0.2 MG/DL (<0.4); BILIRUBIN,TOTAL 0.6 MG/DL (0.3-1.2); BLOOD UREA NITROGEN 16 MG/DL (9-23); CALCIUM LEVEL 9.1 MG/DL (8.3-10.6); CARBON DIOXIDE LEVEL 26 MMOL/L (20-31); CHLORIDE LEVEL 107 MMOL/L (98-107); CREATININE FOR GFR 0.78 MG/DL (0.70-1.30); GLOMERULAR FILTRATION RATE > 90.0 (>49); GLUCOSE, FASTING 110 MG/DL (74-106); POTASSIUM SERUM 4.2 MMOL/L (3.5-5.1); SODIUM LEVEL 142 MMOL/L (136-145); TOTAL PROTEIN 6.8 G/DL (5.7-8.2)
[2024-10-04] MEDS: IPRATROPIUM 0.5MG/ALBUTEROL 2.5MG INH SOL UD 3ML NEB SCH (07:52)
[2024-10-04] MEDS: ACETAMINOPHEN 500 MG TAB PO ONE (08:08)
[2024-10-04 10:15] VITALS: BP 148/76; TEMP 97.8; O2SAT 93
== END 2024-10-04 10:31 | disposition home or self-care (01) ==
LOC: EDBD 06:37 → M ED 06:37
DX: J70.5 Respiratory conditions due to smoke inhalation (principal); I10 Essential (primary) hypertension; E78.5 Hyperlipidemia, unspecified; D64.9 Anemia, unspecified; G47.33 Obstructive sleep apnea (adult) (pediatric); J44.9 Chronic obstructive pulmonary disease, unspecified; K21.9 Gastro-esophageal reflux disease without esophagitis; Z98.84 Bariatric surgery status; Z87.891 Personal history of nicotine dependence; Z79.82 Long term (current) use of aspirin; Z79.899 Other long term (current) drug therapy

== ENCOUNTER → 2025-01-25 | Outpatient (CLI) | payer MEDICARE, OTHER ==
[2025-01-25 13:53] LABS: PLATELET COUNT, AUTOMATED 222 10^3/uL (150-450)
[2025-01-25 13:57] LABS: ALT/SGPT 27 U/L (7.0-40); AST/SGOT 23 U/L (<34); CALCIUM LEVEL 9.2 MG/DL (8.3-10.6); CARBON DIOXIDE LEVEL 29 MMOL/L (20-31); CHLORIDE LEVEL 106 MMOL/L (98-107); CREATININE FOR GFR 0.78 MG/DL (0.70-1.30); GLOMERULAR FILTRATION RATE > 90.0 (>49); POTASSIUM SERUM 4.1 MMOL/L (3.5-5.1); SODIUM LEVEL 143 MMOL/L (136-145)
== END ==
LOC: M PLALAB 09:29
DX: J40 Bronchitis, not specified as acute or chronic (principal)

== ENCOUNTER → 2025-03-31 | Outpatient (REF) | payer MEDICARE ==
[2025-03-31 17:38] LABS: PLATELET COUNT, AUTOMATED 274 10^3/uL (150-450)
[2025-03-31 17:48] LABS: ESTIMATED AVERAGE GLUCOSE 103.0 MG/DL (60-110)
[2025-03-31 18:01] LABS: ALT/SGPT 27 U/L (7.0-40); AST/SGOT 21 U/L (<34); C REACTIVE PROTEIN QUANTITATIV 0.78 MG/DL (<1.0); CALCIUM LEVEL 9.0 MG/DL (8.3-10.6); CARBON DIOXIDE LEVEL 27 MMOL/L (20-31); CHLORIDE LEVEL 103 MMOL/L (98-107); CREATININE FOR GFR 0.94 MG/DL (0.70-1.30); GLOMERULAR FILTRATION RATE > 90.0 (>49); POTASSIUM SERUM 4.1 MMOL/L (3.5-5.1); SODIUM LEVEL 142 MMOL/L (136-145)
[2025-03-31 18:04] LABS: FREE T4 1.42 NG/DL (0.89-1.76)
[2025-03-31 18:05] LABS: TOTAL 25(OH) VITAMIN D 42.1 NG/ML (20.0-100.0); VITAMIN B12 LEVEL 342 PG/ML (211-911)
== END ==
LOC: M SFHCADAM 12:08
PROVIDERS: ATTEND Physician Assistant
DX: K76.0 Fatty (change of) liver, not elsewhere classified (principal); I48.91 Unspecified atrial fibrillation; M25.552 Pain in left hip; Z98.84 Bariatric surgery status; Z79.899 Other long term (current) drug therapy

== ENCOUNTER → 2025-03-31 | Outpatient (CLI) | payer MEDICARE | LOC: M ADAMS 13:13 | PROVIDERS: ATTEND Family Medicine | DX: M25.552 Pain in left hip (principal) ==